=== PATIENT | female | born 1960 | race Caucasian/White ===

== ENCOUNTER → 2022-10-24 14:22 | Outpatient (BNVA) | payer MEDICARE, MEDICAID, SELFPAY | PROVIDERS: PCP Physician Assistant Medical; Visit Provider Hospitalist | DX: J43.2 Centrilobular emphysema (principal); G47.33 Obstructive sleep apnea (adult) (pediatric); D49.89 Neoplasm of unspecified behavior of other specified sites; R91.8 Other nonspecific abnormal finding of lung field; Z87.891 Personal history of nicotine dependence; Z99.89 Dependence on other enabling machines and devices | CPT/HCPCS: 99202 ==

== ENCOUNTER 2022-11-03 10:23 | Outpatient (REF) | payer MEDICARE, MEDICAID, SELFPAY ==
--- NOTE | ~2022-11-03 | XR_ITS ---
EXAMINATION: XR LUMBOSACRAL SPINE WITH OBLIQUES CLINICAL INFORMATION: Spondylolisthesis. COMPARISON: None available. TECHNIQUE: 4 views of the lumbar spine including flexion-extension views. FINDINGS: There is an old moderate compression fracture and post kyphoplasty change of the L2 vertebral body. There is a mild old-appearing compression fracture of the superior endplate of the L4 vertebral body. There is a 3.4 cm anterior subluxation of L5 with respect to S1. This increases to 3.6 cm with flexion and does not change with extension. There is disc space narrowing at L1-L2 and L5-S1. There is lower lumbar spine facet arthritis. There is a probable L5 pars defect. XR/XR lumbar spine 4V min IMPRESSION: Significant 3.4 cm anterior subluxation of L5 with respect to S1 slightly increased to 3.6 cm with flexion and unchanged with extension. Old moderate L2 compression fracture and post kyphoplasty change. Old mild L4 compression fracture. Multilevel degenerative changes and probable bilateral L5 pars defect.
== END 2022-11-03 10:24 | disposition home or self-care (01) ==
LOC: HO.HOSX 10:23
PROVIDERS: PCP Physician Assistant Medical; Visit Provider Physician Assistant
DX: M43.16 Spondylolisthesis, lumbar region (principal); Z79.899 Other long term (current) drug therapy
CPT/HCPCS: 72110; 99202

== ENCOUNTER 2023-01-10 11:20 | Outpatient (AMB) | payer MEDICARE, MEDICAID, SELFPAY ==
--- NOTE | 2023-01-10 11:31 | MHC.OFFVIS ---
Intake Vital Signs 01/10/23 11:32 Height 5 ft 1 in Weight 175 lb 7.807 oz BMI 33.2 BP 116/74 Blood Pressure Location Rt brachial Position Sitting Pulse 72 Pulse Source Pulse Oximeter Temp 97.2 F Temp Source Skin Pulse Oximetry (%) 99 Intake Visit Reasons: Fibromyalgia Intake Note: New pt presents today for FM consult. 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 Accompanied by: Spouse Allergies amoxicillin [From Augmentin] Allergy (Unknown, Verified 01/10/23 11:36) Unknown clarithromycin [From Biaxin] Allergy (Unknown, Verified 01/10/23 11:36) Unknown clavulanic acid [From Augmentin] Allergy (Unknown, Verified 01/10/23 11:36) Unknown clindamycin Allergy (Unknown, Verified 01/10/23 11:36) Unknown doxycycline Allergy (Unknown, Verified 01/10/23 11:36) Unknown levofloxacin [From Levaquin] Allergy (Unknown, Verified 01/10/23 11:36) Unknown Sulfa (Sulfonamide Antibiotics) Allergy (Unknown, Verified 01/10/23 11:36) Unknown adhesive tape Adverse Reaction (Severe, Verified 01/10/23 11:36) Blister Medication List - Last Reconciled 01/10/23 by Antoine Mendieta MD albuterol sulfate 90 mcg/actuation 0 mcg inhalation ascorbate calcium (vitamin C) 500 mg PO DAILY B complex with C 20-folic acid 1 mg 1 cap PO DAILY baclofen 10 mg PO TID budesonide-formoterol 160-4.5 mcg/actuation (Symbicort) 2 puffs inhalation BID 30 days cholecalciferol (vitamin D3) 25 mcg PO DAILY escitalopram oxalate 10 mg PO DAILY gabapentin ER (Gralise) 300 mg PO QPM hydroxyzine HCl 25 mg PO TID PRN inhalational spacing device (Aerochamber MV spacer) As directed lisinopril 2.5 mg PO BID lorazepam 2 mg PO BEDTIME PRN milnacipran (Savella) 100 mg PO DAILY modafinil (Provigil) 200 mg PO DAILY omeprazole 40 mg PO BID trazodone 100 mg PO BEDTIME PRN HPI HPI Comments History of Present Illness Details This is a 62-year-old female who is referred for evaluation of fibromyalgia. Patient stated that she was diagnosed with fibromyalgia in 2007. She was managed with multiple meds including Cymbalta, Lyrica which are not helpful. Currently she is on a combination of gabapentin, trazodone, Savella,trazodone, modafinil, escitalopram which were all prescribed by her neurologist and PCP. She has history of sleep apnea and uses a CPAP but the machine is broken and she is in the process of getting a new one. She states that her neurologist retired and she saw another neurologist and she did not find very helpful. Patient recently was diagnosed with thymoma and had a surgical resection a few months ago. Post operatively patient is requiring 2 L of home oxygen. Patient was also found to have significant degenerative disc disease of her spine and is planned to have surgery soon. [facility] Medical History COPD (chronic obstructive pulmonary disease) FERCHO on CPAP Pulmonary nodules Thymoma Surgical History H/O myomectomy H/O parotidectomy H/O sinus surgery H/O thymectomy H/O tubal ligation Family History Mother COPD (chronic obstructive pulmonary disease) Father Prostate CA Social History Household Members: Spouse Alcohol intake: never Patient Tobacco Use Status: Former Tobacco user Years Smoked: 20 years Review of Systems Const Reports fatigue and Reports weakness Card Reports dyspnea Resp Reports dyspnea and Reports wheezing GI Reports heartburn Musc Reports back pain, Reports arthralgias, Reports limited range of motion and Reports stiffness Skin/Breast Reports unusual bruising Neuro Reports weakness Psych Reports anxiety and Reports depression Endo Reports fatigue Aller/Immun Reports wheezing Physical Exam Vital Signs: Last Vital Signs Temp 97.2 F 01/10/23 11:32 Pulse 72 01/10/23 11:32 BP 116/74 01/10/23 11:32 Pulse Ox 99 01/10/23 11:32 BMI result Body Mass Index 33.2 Const General: cooperative, healthy appearing and comfortable Nutritional Appearance: obese Orientation/consciousness: patient oriented x3 Limitations: no limitations and ambulation with walker HEENT Head: Yes normocephalic and Yes atraumatic Mouth: moist mucous membranes Resp Effort & Inspection: normal respiratory effort and able to speak in complete sentences Auscultation: rhonchi Cardio Rate: regular rate Neuro General: patient oriented x3 Extrem Other: Few fibromyalgia tender points with no active synovitis Assessment & Plan Assessment & Plan (1) Fibromyalgia, primary: Code(s): M79.7 - Fibromyalgia Plan: This is a 62-year-old female with fibromyalgia who presents as a new patient. Discussed management of fibromyalgia with patient. 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 I suggested that patient try to address her underlying psychiatric issues, anxiety/depression. I suggested evaluation by a therapist and/or a psychiatrist. Advised patient try to acquire a new CPAP machine as soon as she can. Try to follow sleep hygiene practices. Patient would benefit from increased physical activity. I suggested low-impact exercises such as swimming, aquatherapy, stretching or yoga. Patient previously failed Cymbalta and Lyrica. She is currently on multiple meds for anxiety/depression and fibromyalgia. Follow-up with PCP Plan I spent 46 minutes reviewing patient's chart, evaluating patient counseling patient and documenting in the chart Coding Level of Care Code New Pt Level 4 (58976) Diagnoses Fibromyalgia, primary M79.7
[2023-01-10 11:32] VITALS: BP 116/74; PULSE 72; TEMP 36.2; O2SAT 99; BMI 33.2
== END 2023-01-10 12:11 | disposition home or self-care (01) ==
PROVIDERS: PCP Physician Assistant Medical; Visit Provider Student in an Organized Health Care Education/Training Program
DX: M79.7 Fibromyalgia (principal)
CPT/HCPCS: 99204

== ENCOUNTER → 2023-01-10 11:20 | Outpatient (BNVA) | payer MEDICARE, MEDICAID, SELFPAY | PROVIDERS: PCP Physician Assistant Medical; Visit Provider Student in an Organized Health Care Education/Training Program | DX: M79.7 Fibromyalgia (principal) | CPT/HCPCS: 99202 ==

== ENCOUNTER 2023-01-30 13:04 | Outpatient (AMB) | payer MEDICARE, MEDICAID, SELFPAY ==
[2023-01-30 13:12] VITALS: BP 118/64; PULSE 104; O2SAT 96; BMI 33.1
--- NOTE | 2023-01-30 13:12 | MHC.OFFVIS ---
Intake Vital Signs 01/30/23 13:12 Height 5 ft 1 in Weight 175 lb 4.28 oz BMI 33.1 BP 118/64 Blood Pressure Location Lt brachial Position Sitting Pulse 104 H Pulse Source Pulse Oximeter Pulse Oximetry (%) 96 Oxygen Delivery Method Nasal Cannula Intake Visit Reasons: COPD, d/c from [facility] with O2 Magistrate Judge Required: No Kiosk Sales Representative: Kiosk Sales Representative offered & declined Accompanied by: Spouse Allergies amoxicillin [From Augmentin] Allergy (Unknown, Verified 01/30/23 13:19) Unknown clarithromycin [From Biaxin] Allergy (Unknown, Verified 01/30/23 13:19) Unknown clavulanic acid [From Augmentin] Allergy (Unknown, Verified 01/30/23 13:19) Unknown clindamycin Allergy (Unknown, Verified 01/10/23 11:36) Unknown doxycycline Allergy (Unknown, Verified 01/10/23 11:36) Unknown levofloxacin [From Levaquin] Allergy (Unknown, Verified 01/30/23 13:19) Unknown Sulfa (Sulfonamide Antibiotics) Allergy (Unknown, Verified 01/30/23 13:19) Unknown adhesive tape Adverse Reaction (Severe, Verified 01/30/23 13:19) Blister Medication List - Last Reconciled 01/30/23 by Mimi Delatorre LPN albuterol sulfate 90 mcg/actuation 0 mcg inhalation ascorbate calcium (vitamin C) 500 mg PO DAILY B complex with C 20-folic acid 1 mg 1 cap PO DAILY baclofen 10 mg PO TID budesonide-formoterol 160-4.5 mcg/actuation (Symbicort) 2 puffs inhalation BID 30 days cholecalciferol (vitamin D3) 25 mcg PO DAILY escitalopram oxalate 10 mg PO DAILY gabapentin ER (Gralise) 300 mg PO QPM hydroxyzine HCl 25 mg PO TID PRN inhalational spacing device (Aerochamber MV spacer) As directed lisinopril 2.5 mg PO BID lorazepam 2 mg PO BEDTIME PRN milnacipran (Savella) 100 mg PO DAILY modafinil (Provigil) 200 mg PO DAILY omeprazole 40 mg PO BID trazodone 100 mg PO BEDTIME PRN HPI COPD, d/c from [facility] with O2 HPI Details Gladys is a pleasant 62 year old female, former smoker, with underlying COPD and FERCHO on previously on CPAP. At baseline, she is well controlled on Symbicort and albuterol MDI PRN. Today she presents for hospital follow up. She underwent thymectomy in October and was discharged on oxygen. Mid November her oxygen was discontinued and she had two syncopal episodes admitted to [facility] for 3 nights and discharged on 12/18/22. Her symptoms were reportedly attributed to hypoxia, especially at night. An order for a sleep study was placed at discharge which is scheduled for 03/13/23. She presents today using 1L of continuous oxygen and is concerned about hypoxia at night as she reports waking up gasping for air. [facility] Medical History COPD (chronic obstructive pulmonary disease) FERCHO on CPAP Pulmonary nodules Thymoma Surgical History H/O myomectomy H/O parotidectomy H/O sinus surgery H/O thymectomy H/O tubal ligation Family History Mother COPD (chronic obstructive pulmonary disease) Father Prostate CA Social History (Updated 01/30/23 @ 13:22 by Mimi Delatorre LPN) Household Members: Spouse Alcohol intake: never Patient Tobacco Use Status: Former Tobacco user Cigarette Packs Per Day: 1 Years Smoked: 20 years / quit 2003 Review of Systems Const Denies chills, Denies excessive sweating, Denies fever(s), Denies headache(s) and Denies night sweats Eyes Denies dry eyes, Denies irritation and Denies itchy eyes ENT Reports Normal hearing present, Denies headache(s), Denies nasal congestion, Denies nasal discharge, Denies post nasal drip and Denies sore throat Card Denies chest pain, Denies chest pain at rest, Denies chest pain with activity, Denies claudication, Denies leg edema and Denies orthopnea Resp Denies chest congestion, Denies cough, Denies excessive phlegm production, Denies pain on inspiration, Denies pain with cough, Denies stridor and Denies wheezing Musc Denies myalgias Neuro Reports Normal hearing present and Denies headache(s) Endo Denies excessive sweating David/Lymph Denies lymphadenopathy Aller/Immun Denies itchy eyes, Denies seasonal rhinorrhea and Denies wheezing Physical Exam Vital Signs: Last Vital Signs Pulse 104 H 01/30/23 13:12 BP 118/64 01/30/23 13:12 Pulse Ox 96 01/30/23 13:12 Oxygen Delivery Method Nasal Cannula 01/30/23 13:12 BMI result Body Mass Index 33.1 Const Other: using walker for ambulation General: cooperative, healthy appearing, comfortable, no acute distress, well developed and alert Orientation/consciousness: patient oriented x3 Limitations: ambulation with walker HEENT Head: Yes normal to inspection, Yes normocephalic and Yes atraumatic Ears: hearing grossly normal bilaterally and external ears normal Eyes General: appearance normal, both eyes and all related structures Eyelids: Yes eyelids normal Sclerae: sclerae normal EOM: EOMs intact bilaterally Neck Neck: Yes normal visual inspection and Yes no lymphadenopathy Lymphatic: no lymphadenopathy noted Chest Chest palpation & inspection: normal inspection of the chest Resp Effort & Inspection: normal respiratory effort, able to speak in complete sentences, no audible wheezes, no cough, no stridor, not tachypneic, no tripod positioning and no use of accessory muscles Auscultation: no crackles, no wheezes and diminished lung sounds Cardio Jugular venous distension: no JVD Rate: regular rate Rhythm: regular rhythm Skin Other: warm, dry General skin exam: no rashes or lesions noted Neuro General: patient oriented x3 Cranial nerves: Yes Normal hearing present Cognition (Neuro): normal cognition Gait exam (Neuro): Normal gait present Extrem General: Yes normal to inspection, Yes capillary refill normal, Yes no clubbing, cyanosis or edema and Yes no pedal edema Psych Appearance: grossly normal and well kempt Speech and movement: Normal speech and movement present and Clear speech present Affect: normal affect Attitude: cooperative Thought process: Normal thought process present Thought content: Normal thought content present Insight: Good insight present (Psych) Judgement: Good judgement present (Psych) Office Procedures 6 Minute Walk Time:: 13:40 SPO2 % at rest: 95 Pulse at rest: 107 SPO2 % during excercise: 87 Pulse during excercise: 118 SPO2 % after excercise: 96 Pulse after excercise: 116 Distance in yards walked: 114 Neeraj Score: 7 Supplemental Oxygen: Performance Observations:: Patient without O2 was able to walk on level ground using a walker. After walking 50 yards O2 sat dropped to 87% and O2 was applied at 1L. Rested for approx one minute and recovered to O2 saturation of 92%. Completed the 6 minute walk using the O2 via nasal cannula at 1L and maintained O2 saturation between 91-93%. Patient reports moderate effort and states she tires easily. [id number] - 6 Minute Walk Assessment & Plan Assessment & Plan (1) COPD (chronic obstructive pulmonary disease): Code(s): J44.9 - Chronic obstructive pulmonary disease, unspecified Qualifiers: COPD type: emphysema Emphysema type: centrilobular Qualified Code(s): J43.2 - Centrilobular emphysema (2) FERCHO on CPAP: Code(s): G47.33 - Obstructive sleep apnea (adult) (pediatric); Z99.89 - Dependence on other enabling machines and devices (3) Nocturnal hypoxemia: Code(s): G47.34 - Idiopathic sleep related nonobstructive alveolar hypoventilation (4) On supplemental oxygen therapy: Code(s): Z99.81 - Dependence on supplemental oxygen Plan Gladys presents for hospital follow up after two syncopal episodes and reported were related to hypoxic events. Will attempt to obtain records from [facility]. She does have a history of FERCHO and has been without her CPAP machine for almost one year due to malfunction and need for a repeat study. Discussed with patient that scheduling a sleep study and overnight oximetry through this office would most likely be after her already scheduled appointment in February at [facility]. Advised her to continue to follow with [facility] sleep clinic and if she would like to transfer care here, then we would take over at that time. 6MWT was performed, and patient still requires 1L of continuous oxygen, as her oxygen saturation decreased to 87% with exertion. Patient aware to maintain oxygen saturation between 92-94%. At this time, patient is doing well on current regimen. Advised to continue and follow up with Dr. Partida at her regularly scheduled appointment or sooner if needed. All questions were answered and patient is in agreement of plan. Orders: Orders AMB 6 minute walk 01/30/23 J44.9 - Chronic obstructive pulmonary disease, unspecified Coding Level of Care Code Est Pt Level 4 (68024) Diagnoses COPD (chronic obstructive pulmonary disease) J43.2 COPD type: emphysema Emphysema type: centrilobular FERCHO on CPAP G47.33; Z99.89 Nocturnal hypoxemia G47.34 On supplemental oxygen therapy Z99.81 CPT Codes Coding ([id number])
[2023-01-30 14:02] VITALS: PULSE 107; O2SAT 95
== END 2023-01-30 14:06 | disposition home or self-care (01) ==
PROVIDERS: PCP Physician Assistant Medical; Visit Provider Nurse Practitioner Family
DX: J43.2 Centrilobular emphysema (principal)
CPT/HCPCS: 94618; 99214

== ENCOUNTER → 2023-01-30 13:04 | Outpatient (BNVA) | payer MEDICARE, MEDICAID, SELFPAY | PROVIDERS: PCP Physician Assistant Medical; Visit Provider Nurse Practitioner Family | DX: J43.2 Centrilobular emphysema (principal); G47.33 Obstructive sleep apnea (adult) (pediatric); G47.34 Idiopathic sleep related nonobstructive alveolar hypoventilation; R91.8 Other nonspecific abnormal finding of lung field; Z99.89 Dependence on other enabling machines and devices; Z99.81 Dependence on supplemental oxygen; Z79.899 Other long term (current) drug therapy | CPT/HCPCS: 94618; 99212 ==

== ENCOUNTER 2023-04-18 14:35 | Outpatient (AMB) | payer MEDICARE, MEDICAID, SELFPAY ==
--- NOTE | 2023-04-18 15:45 | A.SPINEOV_ITS ---
Intake Intake Visit Reasons: discuss surgery Intake Note: Mrs. Jasso is here to discuss surgery. Engraver Signature Required: No Allergies amoxicillin [From Augmentin] Allergy (Unknown, Verified 01/30/23 13:19) Unknown clarithromycin [From Biaxin] Allergy (Unknown, Verified 01/30/23 13:19) Unknown clavulanic acid [From Augmentin] Allergy (Unknown, Verified 01/30/23 13:19) Unknown clindamycin Allergy (Unknown, Verified 01/10/23 11:36) Unknown doxycycline Allergy (Unknown, Verified 01/10/23 11:36) Unknown levofloxacin [From Levaquin] Allergy (Unknown, Verified 01/30/23 13:19) Unknown Sulfa (Sulfonamide Antibiotics) Allergy (Unknown, Verified 01/30/23 13:19) Unknown adhesive tape Adverse Reaction (Severe, Verified 01/30/23 13:19) Blister Assessment & Plan Assessment & Plan (1) Spondylolisthesis, lumbar region: Code(s): M43.16 - Spondylolisthesis, lumbar region Plan Dear colleague, On 04/18/2023, I saw for preoperative visit Gladys Jasso to discuss surgical options for right L5 lumbar radiculopathy. She was previously seen by Brendon bhatti who diagnosed with an L5-S1 spondylolisthesis and right L5 lumbar radiculopathy. Spinal surgery was postponed due to thymus cancer. In the meantime, a thymectomy was done. She is on 1 L oxygen following the surgery and she hopes that this will be discontinued tomorrow. I went over the imaging with the patient. The MRI shows severe bilateral L5 foraminal stenosis. A standing x-ray shows a grade 1 L5-S1 spondylolisthesis that is stable with flexion- extension. In addition, there is osteoporosis. I discussed with the patient that a fusion is not an appealing option due to her bone quality. However, I think she will respond well to a right L5 foraminotomy and that the risk of additional instability is minor as the dynamic x-rays currently show no signs of instability. I discussed the foraminotomy and expected postoperative course. She is scheduled for the beginning of June. She will need preoperative clearance from the stereotyper and primary care physician before the surgery. I spent 25 minutes in his consult for preparation, review of imaging and discussing plan of care. Thank you for letting me take care of your patient. Do not hesitate to call me with any questions or concerns. Bimal Clarke MD, PhD Spine Fellowship Trained Neurosurgeon Director, [facility] Coding Level of Care Code Est Pt Level 3 (40755) Diagnoses Spondylolisthesis, lumbar region M43.16
== END 2023-04-18 16:31 | disposition home or self-care (01) ==
PROVIDERS: PCP Physician Assistant Medical; Visit Provider Neurological Surgery
DX: M43.16 Spondylolisthesis, lumbar region (principal)
CPT/HCPCS: 99213

== ENCOUNTER → 2023-04-18 14:35 | Outpatient (BNVA) | payer MEDICARE, MEDICAID, SELFPAY | PROVIDERS: PCP Physician Assistant Medical; Visit Provider Neurological Surgery | DX: M43.16 Spondylolisthesis, lumbar region (principal) | CPT/HCPCS: 99212 ==

== ENCOUNTER 2023-04-19 10:02 | Outpatient (AMB) | payer MEDICARE, MEDICAID, SELFPAY ==
--- NOTE | 2023-04-19 10:10 | MHC.OFFVIS ---
Intake Vital Signs 04/19/23 10:11 Weight 174 lb 2.643 oz BP 118/66 Blood Pressure Location Rt brachial Position Sitting Pulse 99 Pulse Source Pulse Oximeter Pulse Oximetry (%) 93 Oxygen Delivery Method Room Air Intake Visit Reasons: Emphysema Allergies amoxicillin [From Augmentin] Allergy (Unknown, Verified 04/19/23 10:17) Unknown clarithromycin [From Biaxin] Allergy (Unknown, Verified 04/19/23 10:17) Unknown clavulanic acid [From Augmentin] Allergy (Unknown, Verified 04/19/23 10:17) Unknown clindamycin Allergy (Unknown, Verified 04/19/23 10:17) Unknown doxycycline Allergy (Unknown, Verified 04/19/23 10:17) Unknown levofloxacin [From Levaquin] Allergy (Unknown, Verified 04/19/23 10:17) Unknown Sulfa (Sulfonamide Antibiotics) Allergy (Unknown, Verified 04/19/23 10:17) Unknown adhesive tape Adverse Reaction (Severe, Verified 04/19/23 10:17) Blister Medication List - Last Reconciled 04/19/23 by Corina Greer LPN abaloparatide (Tymlos) 80 mcg subcut DAILY albuterol sulfate 90 mcg/actuation 0 mcg inhalation ascorbate calcium (vitamin C) 500 mg PO DAILY B complex with C 20-folic acid 1 mg 1 cap PO DAILY baclofen 10 mg PO TID budesonide-formoterol 160-4.5 mcg/actuation (Symbicort) 2 puffs inhalation BID 30 days cholecalciferol (vitamin D3) 25 mcg PO DAILY escitalopram oxalate 10 mg PO DAILY gabapentin ER (Gralise) 300 mg PO QPM hydroxyzine HCl 25 mg PO TID PRN inhalational spacing device (Aerochamber MV spacer) As directed lisinopril 2.5 mg PO BID lorazepam 2 mg PO BEDTIME PRN milnacipran (Savella) 100 mg PO DAILY modafinil (Provigil) 200 mg PO DAILY omeprazole 40 mg PO BID trazodone 100 mg PO BEDTIME PRN HPI HPI Comments History of Present Illness Details The patient is a 62 y/o woman with COPD, former smoker and FERCHO on CPAP. Having muliple complaints including chest tightness and shortness of breath. Moderate in severity. Her SUNDAR inhaler does not help. She did undergo PFTs at [facility] with mild COPD, but significant small airways disease. She also underwent a CT chest demonstrating moderate emphysema, multiple pulmonary nodules and an anterior mediastinal mass. She was dx with a thymoma. Denies any weakness or myasthenia Gravis. She will be undergoing surgery at [facility] [place] soon. Also, she has been on CPAP for many years, However, her CPAP is no longer working. She does have an elevated Hutchinson score 11/24. 04/19/2023 the patient is here for a pulmonary follow-up visit. Overall the patient has been doing well. She did undergo her thymoma surgery. After she did have some chest discomfort. But it has been slowly getting better. Her breathing also been better. She does have oxygen right now. We did take her off the oxygen and did a 6 minute walk test. She was able to maintain pulse ox within the normal ranges. Therefore, is reasonable for her to discontinue the oxygen for now. will plan to reassess her again when she returns for her next follow-up visit. In the meantime her respiratory status is stable. the patient is scheduled to undergo spine surgery. At this point clinically the patient is doing better. the patient does have increased risk for perioperative pulmonary complications which includes atelectasis, hypoxia, pneumonia. At this point she is medically optimized from a pulmonary standpoint it may go ahead and proceed with anesthesia and surgery. She should keep the oxygen at home however. It is likely that she will needed postoperatively. The patient also underwent a home sleep study. The patient does have moderate degree of sleep apnea. She also underwent a titration study and they did recommend APAP. Therefore, I will submit for a replacement CPAP since her current CPAP is no longer functional. She does have an elevated Hutchinson score of 11/24. The patient does have cardiovascular risk factors therefore restarting her CPAP is important. [facility] Medical History COPD (chronic obstructive pulmonary disease) FERCHO on CPAP Pulmonary nodules Thymoma Surgical History H/O myomectomy H/O parotidectomy H/O sinus surgery H/O thymectomy H/O tubal ligation Family History Mother COPD (chronic obstructive pulmonary disease) Father Prostate CA Social History (Updated 01/30/23 @ 13:22 by Mimi Delatorre LPN) Household Members: Spouse Alcohol intake: never Patient Tobacco Use Status: Former Tobacco user Cigarette Packs Per Day: 1 Years Smoked: 20 years / quit 2003 Review of Systems Const Reports daytime sleepiness, Reports difficulty sleeping, Denies fever(s) and Reports snoring Eyes Denies change in vision and Denies diplopia ENT Denies change in voice and Denies dysphagia Card Denies chest pain and Reports dyspnea on exertion Resp Reports cough, Reports dyspnea on exertion, Reports snoring and Denies wheezing GI Denies dysphagia Musc Reports abnormal gait, Reports myalgias, Reports numbness, Reports radiating pain into limb and Reports tingling Skin/Breast Denies rash Neuro Reports no additional complaints, Reports abnormal gait, Reports numbness and Reports tingling Endo Denies flushing David/Lymph Denies lymphadenopathy Aller/Immun Denies wheezing Physical Exam Vital Signs: Last Vital Signs Pulse 99 04/19/23 10:11 BP 118/66 04/19/23 10:11 Pulse Ox 93 04/19/23 10:11 Oxygen Delivery Method Room Air 04/19/23 10:11 Const General: comfortable HEENT Head: Yes normocephalic Neck Neck: Yes supple Chest Chest palpation & inspection: normal inspection of the chest Resp Effort & Inspection: normal respiratory effort Auscultation: diminished lung sounds Cardio Rate: regular rate Rhythm: regular rhythm Heart sounds: S1 normal heart sound present and S2 normal heart sound present GI Palpation (GI): Soft to palpation Skin General skin exam: no rashes or lesions noted Extrem General: Yes no clubbing, cyanosis or edema Assessment & Plan Assessment & Plan (1) Pre-op chest exam: Code(s): Z01.811 - Encounter for preprocedural respiratory examination (2) FERCHO on CPAP: Code(s): G47.33 - Obstructive sleep apnea (adult) (pediatric); Z99.89 - Dependence on other enabling machines and devices (3) Thymoma: Code(s): D49.89 - Neoplasm of unspecified behavior of other specified sites (4) Pulmonary nodules: Code(s): R91.8 - Other nonspecific abnormal finding of lung field (5) Chest pain: Comment: post op Code(s): R07.9 - Chest pain, unspecified Qualifiers: Chest pain type: intercostal pain Qualified Code(s): R07.82 - Intercostal pain Plan The patient may proceed and consent for anesthesia and spinal surgery. She does have increase risk for atelectasis, hypoxia and pneumonia Discontinue oxygen for now, we will reassess again after her surgery continue Symbicort with specer SUNDAR as needed Needs a replacement APAP. Requesting APAP from local DME CT chest to f/u nodules 08/2023 CXR F/U 3 months Orders: Orders XR chest 2V Today R07.9 - Chest pain, unspecified Coding Level of Care Code Est Pt Level 4 (83813) Diagnoses Pre-op chest exam Z01.811 FERCHO on CPAP G47.33; Z99.89 Thymoma D49.89 Pulmonary nodules R91.8 Intercostal pain R07.82 Chest pain type: intercostal pain Time Spent (min) 17
[2023-04-19 10:11] VITALS: BP 118/66; PULSE 99; O2SAT 93
== END 2023-04-19 10:53 | disposition home or self-care (01) ==
PROVIDERS: PCP Physician Assistant Medical; Visit Provider Hospitalist
DX: Z01.811 Encounter for preprocedural respiratory examination (principal); G47.33 Obstructive sleep apnea (adult) (pediatric); Z99.89 Dependence on other enabling machines and devices; D49.89 Neoplasm of unspecified behavior of other specified sites; R91.8 Other nonspecific abnormal finding of lung field; R07.82 Intercostal pain
CPT/HCPCS: 99214

== ENCOUNTER 2023-04-19 10:02 | Outpatient (REF) | payer MEDICARE, MEDICAID, SELFPAY ==
--- NOTE | ~2023-04-19 | XR_ITS ---
EXAMINATION: XR CHEST CLINICAL INFORMATION: Chest pain COMPARISON: 10/12/2022 TECHNIQUE: 2 views of the chest were obtained. FINDINGS: There is no gross pneumothorax. Right basilar opacity may represent a combination of pleural fluid/thickening, atelectasis, pneumonia and/or underlying lesion. Heart size is normal. Mild dextroscoliosis of the thoracic spine. Multilevel degenerative changes XR/XR chest 2V IMPRESSION: Right basilar opacity may represent a combination of pleural fluid/thickening, atelectasis, pneumonia and/or underlying lesion. CT scan of the chest recommended for further evaluation. This study was presented today 04/23/2023 at 11:00 AM for interpretation. PSA staff will provide results to referring provider at this time.
== END 2023-04-19 10:03 | disposition home or self-care (01) ==
LOC: HO.XRAY 10:02
PROVIDERS: Visit Provider Hospitalist
DX: Z01.811 Encounter for preprocedural respiratory examination (principal); R07.9 Chest pain, unspecified; R07.82 Intercostal pain; J44.9 Chronic obstructive pulmonary disease, unspecified; G47.33 Obstructive sleep apnea (adult) (pediatric); R91.8 Other nonspecific abnormal finding of lung field; Z99.89 Dependence on other enabling machines and devices
CPT/HCPCS: 71046; 99212

== ENCOUNTER → 2023-05-14 14:10 | Outpatient (REF) | payer MEDICARE, MEDICAID, SELFPAY ==
--- NOTE | 2023-05-14 14:15 | ECG_ITS ---
Test Reason : COPD Blood Pressure : / mmHG Vent. Rate : 098 BPM Atrial Rate : 098 BPM P-R Int : 148 ms QRS Dur : 096 ms QT Int : 348 ms P-R-T Axes : 064 067 044 degrees QTc Int : 444 ms Normal sinus rhythm Normal ECG No previous ECGs available Referred By: Donell Partida Electronically Signed By:ISABEL FELIZ MD
== END ==
LOC: HO.CARD 14:10
PROVIDERS: PCP Physician Assistant Medical; Visit Provider Hospitalist
DX: J44.9 Chronic obstructive pulmonary disease, unspecified (principal)
CPT/HCPCS: 93005

== ENCOUNTER 2023-08-08 09:32 | Outpatient (AMB) | payer MEDICARE, MEDICAID, SELFPAY ==
[2023-08-08 10:01] VITALS: PULSE 90; O2SAT 96; BMI 34.0
--- NOTE | 2023-08-08 10:01 | MHC.OFFVIS ---
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 Required: No Allergies hydromorphone [From Dilaudid] Allergy (Severe, Verified 08/08/23 10:02) Nausea levofloxacin [From Levaquin] Allergy (Severe, Verified 08/08/23 10:02) lost feeling in legs oxycodone Allergy (Severe, Verified 08/08/23 10:02) Vomiting adhesive tape Adverse Reaction (Severe, Verified 08/08/23 10:02) Blister amoxicillin [From Augmentin] Adverse Reaction (Severe, Verified 08/08/23 10:02) Gastrointestinal Upset clavulanic acid [From Augmentin] Adverse Reaction (Severe, Verified 08/08/23 10:02) Gastrointestinal Upset clarithromycin [From Biaxin] Adverse Reaction (Intermediate, Verified 08/08/23 10:02) Nausea and Vomiting clindamycin Adverse Reaction (Intermediate, Verified 08/08/23 10:02) Nausea and Vomiting doxycycline Adverse Reaction (Intermediate, Verified 08/08/23 10:02) Nausea and Vomiting Sulfa (Sulfonamide Antibiotics) Adverse Reaction (Intermediate, Verified 08/08/23 10:02) Nausea and Vomiting HPI HPI Comments History of Present Illness Details The patient is a 62 y/o woman with COPD, former smoker and FERCHO on CPAP. Having muliple complaints including chest tightness and shortness of breath. Moderate in severity. Her SUNDAR inhaler does not help. She did undergo PFTs at [facility] with mild COPD, but significant small airways disease. She also underwent a CT chest demonstrating moderate emphysema, multiple pulmonary nodules and an anterior mediastinal mass. She was dx with a thymoma. Denies any weakness or myasthenia Gravis. She will be undergoing surgery at [facility] soon. Also, she has been on CPAP for many years, However, her CPAP is no longer working. She does have an elevated Kimball score 05/18. 04/19/2023 the patient is here for a pulmonary follow-up visit. Overall the patient has been doing well. She did undergo her thymoma surgery. After she did have some chest discomfort. But it has been slowly getting better. Her breathing also been better. She does have oxygen right now. We did take her off the oxygen and did a 6 minute walk test. She was able to maintain pulse ox within the normal ranges. Therefore, is reasonable for her to discontinue the oxygen for now. will plan to reassess her again when she returns for her next follow-up visit. In the meantime her respiratory status is stable. the patient is scheduled to undergo spine surgery. At this point clinically the patient is doing better. the patient does have increased risk for perioperative pulmonary complications which includes atelectasis, hypoxia, pneumonia. At this point she is medically optimized from a pulmonary standpoint it may go ahead and proceed with anesthesia and surgery. She should keep the oxygen at home however. It is likely that she will needed postoperatively. The patient also underwent a home sleep study. The patient does have moderate degree of sleep apnea. She also underwent a titration study and they did recommend APAP. Therefore, I will submit for a replacement CPAP since her current CPAP is no longer functional. She does have an elevated Kimball score of 11/24. The patient does have cardiovascular risk factors therefore restarting her CPAP is important. 08/08/2023 the patient is here for a pulmonary follow-up visit. Overall she is doing well. She stopped the Symbicort because she was getting thrush. She is just doing well on the rescue inhaler. Unfortunately she could not have her surgery and now scheduled for the next few weeks from now. Clinically the patient is doing much better from a respiratory status and she really is not using the oxygen at this time. Like we plan the last time we want to retest her for oxygen needs after her surgery just in case she needs oxygen in the postoperative period. I do believe that she will not need it. She did get a new CPAP. The CPAP has been affecting beneficial she does use it for more than 4 hours a night with 100% compliance. Her AHI though continues to be a little elevated at 5.7. We did increase her pressures from 6-16 2 8-18 because she does need a higher pressure. I believe that this will help. [facility] Medical History (Updated 06/22/23 @ 11:57 by Leonora Holbrook RN) GERD (gastroesophageal reflux disease) Depression Arthritis Fibromyalgia Pulmonary nodules Thymoma FERCHO on CPAP COPD (chronic obstructive pulmonary disease) Surgical History (Updated 06/22/23 @ 11:59 by Leonora Holbrook RN) Hx of foot surgery History of esophagogastroduodenoscopy (EGD) H/O colonoscopy H/O thymectomy H/O parotidectomy H/O tubal ligation H/O sinus surgery Family History Mother COPD (chronic obstructive pulmonary disease) Father Prostate CA Social History (Updated 01/30/23 @ 13:22 by Mimi Delatorre LPN) Household Members: Spouse Are you a primary adult daycare coordinator to a significant other at home: No Do you presently have visiting nurse or other home services: Yes (Meals on Wheels) Alcohol intake: never Patient Tobacco Use Status: Former Tobacco user Quit Date: age 43 Tobacco use type: Cigarette Cigarette Packs Per Day: 1 Years Smoked: 20 Review of Systems Const Reports daytime sleepiness, Reports difficulty sleeping, Denies fever(s) and Denies snoring Eyes Denies change in vision and Denies diplopia ENT Denies change in voice and Denies dysphagia Card Denies chest pain and Reports dyspnea on exertion Resp Reports cough, Reports dyspnea on exertion, Denies snoring and Denies wheezing GI Denies dysphagia Musc Reports abnormal gait, Reports myalgias, Reports numbness, Reports radiating pain into limb and Reports tingling Skin/Breast Denies rash Neuro Reports no additional complaints, Reports abnormal gait, Reports numbness and Reports tingling Endo Denies flushing David/Lymph Denies lymphadenopathy Aller/Immun Denies wheezing Physical Exam Vital Signs: Last Vital Signs Pulse 90 08/08/23 10:01 Pulse Ox 96 08/08/23 10:01 Oxygen Delivery Method Room Air 08/08/23 10:01 BMI result Body Mass Index 34.0 Const General: comfortable HEENT Head: Yes normocephalic Neck Neck: Yes supple Chest Chest palpation & inspection: normal inspection of the chest Resp Effort & Inspection: normal respiratory effort Auscultation: clear to auscultation bilaterally and no wheezes Cardio Rate: regular rate Rhythm: regular rhythm Heart sounds: S1 normal heart sound present and S2 normal heart sound present GI Palpation (GI): Soft to palpation Skin General skin exam: no rashes or lesions noted Extrem General: Yes no clubbing, cyanosis or edema Assessment & Plan Assessment & Plan (1) Pre-op chest exam: Code(s): Z01.811 - Encounter for preprocedural respiratory examination (2) FERCHO on CPAP: Code(s): G47.33 - Obstructive sleep apnea (adult) (pediatric); Z99.89 - Dependence on other enabling machines and devices (3) Thymoma: Comment: w/surgery 11/07/22 @ [facility] Code(s): D49.89 - Neoplasm of unspecified behavior of other specified sites (4) Pulmonary nodules: Comment: [place] [place] Code(s): R91.8 - Other nonspecific abnormal finding of lung field Plan The patient may proceed and consent for anesthesia and spinal surgery. She does have increase risk for atelectasis, hypoxia and pneumonia Discontinue oxygen for now, we will reassess again after her surgery stopped Symbicort with specer Fluconazole for thrush SUNDAR as needed Adjusted APAP from local [facility] 12-08 to 8- CT chest to f/u nodules 07/2024 at [facility] F/U 3-4 months Medications: New fluconazole 100 mg PO DAILY 7 days 7 tabs 0RF Discontinued budesonide-formoterol 160-4.5 mcg/actuation (Symbicort) Discontinued Reason: Doctor's Order 2 puffs inhalation BID 30 days 10.2 grams 11RF J44.9 - Chronic obstructive pulmonary disease, unspecified Coding Level of Care Code Est Pt Level 4 (74385) Diagnoses Pre-op chest exam Z01.811 FERCHO on CPAP G47.33; Z99.89 Thymoma D49.89 Pulmonary nodules R91.8 Time Spent (min) 16
== END 2023-08-08 10:26 | disposition home or self-care (01) ==
PROVIDERS: PCP Physician Assistant Medical; Visit Provider Hospitalist
DX: Z01.811 Encounter for preprocedural respiratory examination (principal); G47.33 Obstructive sleep apnea (adult) (pediatric); Z99.89 Dependence on other enabling machines and devices; D49.89 Neoplasm of unspecified behavior of other specified sites; R91.8 Other nonspecific abnormal finding of lung field
CPT/HCPCS: 99214

== ENCOUNTER → 2023-08-08 09:32 | Outpatient (BNVA) | payer MEDICARE, MEDICAID, SELFPAY | PROVIDERS: PCP Physician Assistant Medical; Visit Provider Hospitalist | DX: Z01.811 Encounter for preprocedural respiratory examination (principal); G47.33 Obstructive sleep apnea (adult) (pediatric); R91.8 Other nonspecific abnormal finding of lung field; D49.89 Neoplasm of unspecified behavior of other specified sites; Z99.89 Dependence on other enabling machines and devices | CPT/HCPCS: 99212 ==

== ENCOUNTER 2023-08-23 11:20 | Day surgery (SDC) | payer MEDICARE, MEDICAID, SELFPAY ==
[2023-06-22 12:10] VITALS: BP 115/56; PULSE 90; RESP 18; O2SAT 97; BMI 35.3
--- NOTE | 2023-06-22 12:20 | P.CONAN_ITS ---
HPI - Anesthesia Eval Consult details Narrative: Rescheduled to 08/23/23 62yo F for Right L5 Foraminotomy Pulmo cleared No recent illness No CP. WEN is baseline with COPD. s/p thymectomy 10/2022. Multiple intubation attempts - see highlighted [facility] anesthesia record on chart GERD. PPI BID. Still with rare GERD FERCHO. CPAP QHS. COPD. Ex smoker. Previously on home O2, 2-4L 24 hours 10/2022-03/2023. Passed 6 minute walk test 03/2023 at pulsc office [facility] Active Problems Active Problems: All Active Problems (Updated 06/22/23 @ 11:57 by Leonora Holbrook RN) Pre-op chest exam (Acute) Chest pain (Acute) On supplemental oxygen therapy (Acute) Nocturnal hypoxemia (Acute) Fibromyalgia, primary (Acute) Spondylolisthesis, lumbar region (Acute) Pulmonary nodules (Acute) Thymoma (Acute) FERCHO on CPAP (Acute) COPD (chronic obstructive pulmonary disease) (Acute) Past Medical History Medical History (Updated 06/22/23 @ 11:57 by Leonora Holbrook RN) GERD (gastroesophageal reflux disease) Depression Arthritis Fibromyalgia Pulmonary nodules Thymoma FERCHO on CPAP COPD (chronic obstructive pulmonary disease) Family History Family History Mother COPD (chronic obstructive pulmonary disease) Father Prostate CA Family history of problems with anesthesia: No Surgical History Surgical History (Updated 06/22/23 @ 11:59 by Leonora Holbrook RN) Hx of foot surgery History of esophagogastroduodenoscopy (EGD) H/O colonoscopy H/O thymectomy H/O parotidectomy H/O tubal ligation H/O sinus surgery History of Problems with Anesthesia: No Social History Social History (Updated 01/30/23 @ 13:22 by Mimi Delatorre LPN) Household Members: Spouse Are you a primary before and after school daycare worker to a significant other at home: No Do you presently have visiting nurse or other home services: Yes (Meals on Wheels) Alcohol intake: never Patient Tobacco Use Status: Former Tobacco user Quit Date: age 43 Tobacco use type: Cigarette Cigarette Packs Per Day: 1 Years Smoked: 20 Use of substances other than those prescribed or required for medical reasons: No Have you been hit, kicked, punched, or otherwise hurt by someone within the past year? If so, by whom?: No Are you DNR?: No Advance Directives Information Provided: Yes (as above noted) Advance Directives on File: No Recently lost weight without trying: No Eating poorly because of decreased appetite: No Nutrition Risks: No Nutritional Risk Poor oral hygiene: No (upper partial) Meds Allergies Allergy/AdvReac Type Severity Reaction Status Date / Time hydromorphone [From Dilaudid] Allergy Severe Nausea Verified 06/22/23 12:04 levofloxacin [From Levaquin] Allergy Severe lost Verified 06/22/23 12:02 feeling in legs oxycodone Allergy Severe Vomiting Verified 06/22/23 12:04 adhesive tape AdvReac Severe Blister Verified 04/19/23 10:17 amoxicillin [From Augmentin] AdvReac Severe Gastrointestinal Verified 06/22/23 12:02 Upset clavulanic acid AdvReac Severe Gastrointestinal Verified 06/22/23 12:02 [From Augmentin] Upset clarithromycin [From Biaxin] AdvReac Intermediate Nausea and Verified 06/22/23 12:42 Vomiting clindamycin AdvReac Intermediate Nausea and Verified 06/22/23 12:42 Vomiting doxycycline AdvReac Intermediate Nausea and Verified 06/22/23 12:42 Vomiting Sulfa (Sulfonamide AdvReac Intermediate Nausea and Verified 06/22/23 12:42 Antibiotics) Vomiting Home Medications Medication Instructions Recorded Confirmed Last Taken Type albuterol sulfate 90 mcg/actuation 2 mcg inhalation Q4H PRN Shortness 07/19/22 06/22/23 Unknown History aerosol inhaler Of Breath Or Wheezing escitalopram oxalate 10 mg tablet 10 mg PO DAILY 07/19/22 06/22/23 Unknown History lisinopril 2.5 mg tablet 2.5 mg PO BID 07/19/22 06/22/23 Unknown History lorazepam 2 mg tablet 2 mg PO BEDTIME PRN Anxiety 07/19/22 06/22/23 Unknown History milnacipran 100 mg tablet (Savella) 100 mg PO BID 07/19/22 06/22/23 Unknown History modafinil 200 mg tablet (Provigil) 200 mg PO BID 07/19/22 06/22/23 Unknown History omeprazole 40 mg capsule,delayed 40 mg PO BID 07/19/22 06/22/23 Unknown History release trazodone 50 mg tablet 100 mg PO BEDTIME PRN Insomnia 07/19/22 06/22/23 Unknown History vitamin B complex and vitamin C 1 cap PO DAILY 07/19/22 06/22/23 Unknown History no.20-folic acid 1 mg capsule baclofen 10 mg tablet 10 mg PO TID 10/24/22 06/22/23 Unknown History cholecalciferol (vitamin D3) 25 25 mcg PO DAILY 10/24/22 06/22/23 Unknown History mcg (1,000 unit) capsule hydroxyzine HCl 25 mg tablet 25 mg PO TID PRN itch 10/24/22 06/22/23 Unknown History abaloparatide (Tymlos) 80 mcg subcut DAILY 04/19/23 06/22/23 Unknown History cetirizine 10 mg tablet 10 mg PO DAILY 06/22/23 06/22/23 Unknown History gabapentin 600 mg tablet,extended 1,200 mg PO BEDTIME 06/22/23 06/22/23 Unknown History release 24 hr (Gralise) Exam Height,Weight and Vital Signs: Height 5 ft Weight 82.1 kg Last Vital Signs Pulse 90 06/22/23 12:10 Resp 18 06/22/23 12:10 BP 115/56 L 06/22/23 12:10 Pulse Ox 97 06/22/23 12:10 O2 Del Method Room Air 06/22/23 12:10 Pertinent Lab Results Pertinent Lab Results: 05/2023 CBC from outside facility WNL 02/2023 BMP from outside facility WNL except BUN @ 27 Narrative Narrative: EKG 04/2023 Vent. Rate : 098 BPM Atrial Rate : 098 BPM P-R Int : 148 ms QRS Dur : 096 ms QT Int : 348 ms P-R-T Axes : 064 067 044 degrees QTc Int : 444 ms Normal sinus rhythm Normal ECG No previous ECGs available Chest CT 05/2023 Postoperative changes in anterior mediastinum. No evidence of thymoma recurrence. Unchanged 6mm solid pulmo nodule in RLL. F/u with low-dose lung ca screening program. Unchanged L adrenal gland adenoma. PFT 09/2022 Mild obstruction. No signif response to bronchodilator Gold category 1 MVV is c/w the level of FEV1 TLC is nml Carbon monoxide diffusing capacity is normal. ABG on room air shows nml PO2 Mixed respiratory and metabolic alkalosis. Airway Mallampati Class: III TM Dist: >3cm Neck ROM: Full Partial: Upper Heart: RRR Lungs: CTAB Assessment and Plan Assessment Anesthesia Assessment: Anesthesia Plan Discussed and PAT Visit Final Anesthetic Review Family History of Problems with Anesthesia: No History of Problems with Anesthesia: No
--- NOTE | 2023-08-22 09:55 | HO.ANESPROP2 ---
Documented by User: Odalys Kovacs NP 08/22/23 09:57 HPI - Anesthesia Eval Consult details Narrative: 62yo F for Right L5 Foraminotomy (rescheduled from 05/2023) Pulmo cleared No recent illness No CP. WEN is baseline with COPD. s/p thymectomy 10/2022. Multiple intubation attempts - see highlighted [facility] anesthesia record on chart GERD. PPI BID. Still with rare GERD FERCHO. CPAP QHS. COPD. Ex smoker. Previously on home O2, 2-4L 24 hours 10/2022-03/2023. Passed 6 minute walk test 03/2023 at pulva office PMF Active Problems Active Problems: All Active Problems (Updated 06/22/23 @ 11:57 by Leonora Holbrook RN) Pre-op chest exam (Acute) Chest pain (Acute) On supplemental oxygen therapy (Acute) Nocturnal hypoxemia (Acute) Fibromyalgia, primary (Acute) Spondylolisthesis, lumbar region (Acute) Pulmonary nodules (Acute) Thymoma (Acute) FERCHO on CPAP (Acute) COPD (chronic obstructive pulmonary disease) (Acute) Past Medical History Medical History GERD (gastroesophageal reflux disease) Depression Arthritis Fibromyalgia Pulmonary nodules Thymoma FERCHO on CPAP COPD (chronic obstructive pulmonary disease) Family History Family History Mother COPD (chronic obstructive pulmonary disease) Father Prostate CA Family history of problems with anesthesia: No Surgical History Surgical History Hx of foot surgery History of esophagogastroduodenoscopy (EGD) H/O colonoscopy H/O thymectomy H/O parotidectomy H/O tubal ligation H/O sinus surgery History of Problems with Anesthesia: No Social History Social History Household Members: Spouse Are you a primary respiratory care technician to a significant other at home: No Do you presently have visiting nurse or other home services: Yes (Meals on Wheels) Alcohol intake: never Patient Tobacco Use Status: Former Tobacco user Quit Date: age 43 Tobacco use type: Cigarette Cigarette Packs Per Day: 1 Years Smoked: 20 Use of substances other than those prescribed or required for medical reasons: No Have you been hit, kicked, punched, or otherwise hurt by someone within the past year? If so, by whom?: No Are you DNR?: No Advance Directives: No Advance Directives Information Provided: Yes Advance Directives on File: No Recently lost weight without trying: No Eating poorly because of decreased appetite: No Nutrition Risks: No Nutritional Risk Poor oral hygiene: No (upper partial) Meds Allergies Allergy/AdvReac Type Severity Reaction Status Date / Time hydromorphone [From Dilaudid] Allergy Severe Nausea Verified 08/08/23 10:02 levofloxacin [From Levaquin] Allergy Severe lost Verified 08/08/23 10:02 feeling in legs oxycodone Allergy Severe Vomiting Verified 08/08/23 10:02 adhesive tape AdvReac Severe Blister Verified 08/08/23 10:02 amoxicillin [From Augmentin] AdvReac Severe Gastrointestinal Verified 08/08/23 10:02 Upset clavulanic acid AdvReac Severe Gastrointestinal Verified 08/08/23 10:02 [From Augmentin] Upset clarithromycin [From Biaxin] AdvReac Intermediate Nausea and Verified 08/08/23 10:02 Vomiting clindamycin AdvReac Intermediate Nausea and Verified 08/08/23 10:02 Vomiting doxycycline AdvReac Intermediate Nausea and Verified 08/08/23 10:02 Vomiting Sulfa (Sulfonamide AdvReac Intermediate Nausea and Verified 08/08/23 10:02 Antibiotics) Vomiting Home Medications Medication Instructions Recorded Confirmed Last Taken Type albuterol sulfate 90 mcg/actuation 2 mcg inhalation Q4H PRN Shortness 07/19/22 06/22/23 Unknown History aerosol inhaler Of Breath Or Wheezing escitalopram oxalate 10 mg tablet 10 mg PO DAILY 07/19/22 06/22/23 Unknown History lisinopril 2.5 mg tablet 2.5 mg PO BID 07/19/22 06/22/23 Unknown History milnacipran 100 mg tablet (Savella) 100 mg PO BID 07/19/22 06/22/23 Unknown History modafinil 200 mg tablet (Provigil) 200 mg PO BID 07/19/22 06/22/23 Unknown History omeprazole 40 mg capsule,delayed 40 mg PO BID 07/19/22 06/22/23 Unknown History release trazodone 50 mg tablet 100 mg PO BEDTIME PRN Insomnia 07/19/22 06/22/23 Unknown History vitamin B complex and vitamin C 1 cap PO DAILY 07/19/22 06/22/23 Unknown History no.20-folic acid 1 mg capsule baclofen 10 mg tablet 10 mg PO TID 10/24/22 06/22/23 Unknown History cholecalciferol (vitamin D3) 25 25 mcg PO DAILY 10/24/22 06/22/23 Unknown History mcg (1,000 unit) capsule hydroxyzine HCl 25 mg tablet 25 mg PO TID PRN itch 10/24/22 06/22/23 Unknown History abaloparatide (Tymlos) 80 mcg subcut DAILY 04/19/23 06/22/23 Unknown History cetirizine 10 mg tablet 10 mg PO DAILY 06/22/23 06/22/23 Unknown History gabapentin 600 mg tablet,extended 1,200 mg PO BEDTIME 06/22/23 06/22/23 Unknown History release 24 hr (Gralise) lorazepam 1 mg tablet 1 mg PO DAILY PRN 08/08/23 Unknown History Exam Height,Weight and Vital Signs: Height 5 ft Weight 82.1 kg Last Vital Signs Pulse 90 06/22/23 12:10 Resp 18 06/22/23 12:10 BP 115/56 L 06/22/23 12:10 Pulse Ox 97 06/22/23 12:10 O2 Del Method Room Air 06/22/23 12:10 Pertinent Lab Results Pertinent Lab Results: 05/2023 CBC from outside facility WNL 02/2023 BMP from outside facility WNL except BUN @ 27 Narrative Narrative: EKG 04/2023 Vent. Rate : 098 BPM Atrial Rate : 098 BPM P-R Int : 148 ms QRS Dur : 096 ms QT Int : 348 ms P-R-T Axes : 064 067 044 degrees QTc Int : 444 ms Normal sinus rhythm Normal ECG No previous ECGs available Chest CT 05/2023 Postoperative changes in anterior mediastinum. No evidence of thymoma recurrence. Unchanged 6mm solid pulmo nodule in RLL. F/u with low-dose lung ca screening program. Unchanged L adrenal gland adenoma. PFT 09/2022 Mild obstruction. No signif response to bronchodilator Gold category 1 MVV is c/w the level of FEV1 TLC is nml Carbon monoxide diffusing capacity is normal. ABG on room air shows nml PO2 Mixed respiratory and metabolic alkalosis. Airway Mallampati Class: III TM Dist: >3cm Neck ROM: Full Partial: Upper Heart: RRR Lungs: CTAB Assessment and Plan Assessment Anesthesia Assessment: Chart Reviewed (Previously seen in [facility] 05/2023) Final Anesthetic Review Family History of Problems with Anesthesia: No History of Problems with Anesthesia: No Documented by User: Amrit Mari MD 08/23/23 13:28 [facility] Past Medical History Medical History GERD (gastroesophageal reflux disease) Depression Arthritis Fibromyalgia Pulmonary nodules Thymoma FERCHO on CPAP COPD (chronic obstructive pulmonary disease) Family History Family History Mother COPD (chronic obstructive pulmonary disease) Father Prostate CA Surgical History Surgical History Hx of foot surgery History of esophagogastroduodenoscopy (EGD) H/O colonoscopy H/O thymectomy H/O parotidectomy H/O tubal ligation H/O sinus surgery Social History Social History Household Members: Spouse Are you a primary respiratory care technician to a significant other at home: No Do you presently have visiting nurse or other home services: Yes (Meals on Wheels) Alcohol intake: never Patient Tobacco Use Status: Former Tobacco user Quit Date: age 43 Tobacco use type: Cigarette Cigarette Packs Per Day: 1 Years Smoked: 20 Use of substances other than those prescribed or required for medical reasons: No Have you been hit, kicked, punched, or otherwise hurt by someone within the past year? If so, by whom?: No Are you DNR?: No Advance Directives: No Advance Directives Information Provided: Yes Advance Directives on File: No Recently lost weight without trying: No Eating poorly because of decreased appetite: No Nutrition Risks: No Nutritional Risk Poor oral hygiene: No (upper partial) Meds Allergies Allergy/AdvReac Type Severity Reaction Status Date / Time hydromorphone [From Dilaudid] Allergy Severe Nausea Verified 08/08/23 10:02 levofloxacin [From Levaquin] Allergy Severe lost Verified 08/08/23 10:02 feeling in legs oxycodone Allergy Severe Vomiting Verified 08/08/23 10:02 adhesive tape AdvReac Severe Blister Verified 08/08/23 10:02 amoxicillin [From Augmentin] AdvReac Severe Gastrointestinal Verified 08/08/23 10:02 Upset clavulanic acid AdvReac Severe Gastrointestinal Verified 08/08/23 10:02 [From Augmentin] Upset clarithromycin [From Biaxin] AdvReac Intermediate Nausea and Verified 08/08/23 10:02 Vomiting clindamycin AdvReac Intermediate Nausea and Verified 08/08/23 10:02 Vomiting doxycycline AdvReac Intermediate Nausea and Verified 08/08/23 10:02 Vomiting Sulfa (Sulfonamide AdvReac Intermediate Nausea and Verified 08/08/23 10:02 Antibiotics) Vomiting Home Medications Medication Instructions Recorded Confirmed Last Taken Type albuterol sulfate 90 mcg/actuation 2 mcg inhalation Q4H PRN Shortness 07/19/22 06/22/23 Unknown History aerosol inhaler Of Breath Or Wheezing escitalopram oxalate 10 mg tablet 10 mg PO DAILY 07/19/22 06/22/23 Unknown History lisinopril 2.5 mg tablet 2.5 mg PO BID 07/19/22 06/22/23 Unknown History milnacipran 100 mg tablet (Savella) 100 mg PO BID 07/19/22 06/22/23 Unknown History modafinil 200 mg tablet (Provigil) 200 mg PO BID 07/19/22 06/22/23 Unknown History omeprazole 40 mg capsule,delayed 40 mg PO BID 07/19/22 06/22/23 Unknown History release trazodone 50 mg tablet 100 mg PO BEDTIME PRN Insomnia 07/19/22 06/22/23 Unknown History vitamin B complex and vitamin C 1 cap PO DAILY 07/19/22 06/22/23 Unknown History no.20-folic acid 1 mg capsule baclofen 10 mg tablet 10 mg PO TID 10/24/22 06/22/23 Unknown History cholecalciferol (vitamin D3) 25 25 mcg PO DAILY 10/24/22 06/22/23 Unknown History mcg (1,000 unit) capsule hydroxyzine HCl 25 mg tablet 25 mg PO TID PRN itch 10/24/22 06/22/23 Unknown History abaloparatide (Tymlos) 80 mcg subcut DAILY 04/19/23 06/22/23 Unknown History cetirizine 10 mg tablet 10 mg PO DAILY 06/22/23 06/22/23 Unknown History gabapentin 600 mg tablet,extended 1,200 mg PO BEDTIME 06/22/23 06/22/23 Unknown History release 24 hr (Gralise) lorazepam 1 mg tablet 1 mg PO DAILY PRN 08/08/23 Unknown History Exam Airway Mallampati Class: III Assessment and Plan Assessment Anesthesia Assessment: Anesthesia Plan Discussed Final Anesthetic Review NPO: Yes ASA Class: III Final Preanesthetic Review: No Changes in Pt Med Stat, Meds/Allgs Chart Reviewed and Consent Obtained/Reviewed Patient Risk: Intermediate Procedure Risk: Intermediate Assessment/Block/Sedation in SS: Assess/Block/Sedation-SS Anesthetic Plan Anesthetic Plan: GA Disposition: Standard PACU
[2023-08-23] VITALS (16 sets, daily range): BP systolic 106–136; BP diastolic 45–64; PULSE 62–92; RESP 14–20; TEMP 36.2–37.3; O2SAT 94–100; BMI 35.6
--- NOTE | ~2023-08-23 | FL_ITS ---
CLINICAL INDICATION: Back pain. FINDINGS: Technical assistance and equipment were provided by the Department of Radiology during intraoperative fluoroscopy for L5 foraminotomy, right. 1, limited fluoroscopic spot image is submitted. A radiologist was not present during the procedure. The image submitted is very limited by audible technique, underpenetration, and patient body habitus. A surgical retractor and metallic surgical devices project roughly over the level of the posterior aspect of what is probably the L5-S1 disc space. The patient is status post vertebroplasty or kyphoplasty of an upper lumbar vertebral body, probably L2. The image is available for review on PACS. TOTAL FLUOROSCOPY TIME: 16 seconds. DOSE AREA PRODUCT: 4.1 Gy-cm2 (garcia-centimeter squared) FL/FL guidance in OR IMPRESSION: Technical assistance and equipment provided by the Department of Radiology during intraoperative fluoroscopy, as above. Please see operative report for further details.
--- NOTE | 2023-08-23 07:30 | MHC.SHP ---
Pre-Procedural Eval Section A - 24 Hr Update-Section A only Date of Service: 08/23/23 The patient is an INPATIENT: No Changes since office visit: No Cold of Flu in the past 2 weeks, No New Medical Problems, No Changes in Medication and No Patient answered all questions Section B - Complete if H&P > 30 days Chief Complaint: Spondylolisthesis, lumbar region Allergies: Allergies Allergy/AdvReac Type Severity Reaction Status Date / Time hydromorphone [From Dilaudid] Allergy Severe Nausea Verified 08/08/23 10:02 levofloxacin [From Levaquin] Allergy Severe lost Verified 08/08/23 10:02 feeling in legs oxycodone Allergy Severe Vomiting Verified 08/08/23 10:02 adhesive tape AdvReac Severe Blister Verified 08/08/23 10:02 amoxicillin [From Augmentin] AdvReac Severe Gastrointestinal Verified 08/08/23 10:02 Upset clavulanic acid AdvReac Severe Gastrointestinal Verified 08/08/23 10:02 [From Augmentin] Upset clarithromycin [From Biaxin] AdvReac Intermediate Nausea and Verified 08/08/23 10:02 Vomiting clindamycin AdvReac Intermediate Nausea and Verified 08/08/23 10:02 Vomiting doxycycline AdvReac Intermediate Nausea and Verified 08/08/23 10:02 Vomiting Sulfa (Sulfonamide AdvReac Intermediate Nausea and Verified 08/08/23 10:02 Antibiotics) Vomiting Review of Systems Sugical H&P ROS: Negative: Constitution, Cardiovascular, Respiratory, Neurological, Psychiatric, Hem-Onc, Allergic/Immunologic, Gastrointestinal, Genitourinary, Musculoskeletal, Integumentary, Endocrine and Eyes/Ears/Nose/Throat Exam Surgical H&P Exam: Not Evaluated: HEENT, Not Evaluated: Heart, Not Evaluated: Lungs, Not Evaluated: Extremities, Not Evaluated: Abdomen, Not Evaluated: Skin and Not Evaluated: Neurological Plan Diagnosis/Plan: Unchanged right L5 foramintomy Time Spent With Patient Time: Total time managing care of this patient today _6___ minutes.
[2023-08-23] MEDS: methocarbamoL 750 MG TABLET PO (11:57)
[2023-08-23] MEDS: Gabapentin 300 MG CAPSULE PO (11:57)
[2023-08-23] MEDS: Lactated Ringers 1,000 ML 100 ML IVCONT (12:19)
[2023-08-23] MEDS: vancomycin HCL 1,500 MG in 0.9 % Sodium Chloride 500 ML 333.33 MG IV (12:19)
--- NOTE | 2023-08-23 14:02 | P.OP_ITS ---
Operative Note Operative Note Date of Service: 08/23/23 Narrative: Preoperative Diagnosis: Spinal stenosis/lateral recess stenosis/neural foraminal stenosis Operation: Right L5 Laminotomy, facetectomy and foraminotomy with use of microscope Consent Informed Consent was obtained for this operation. I have explained the nature, purpose and benefits of the operation. I have discussed the risks and benefit of the operation including possible complications or adverse events with patie nt/family. Alternative(s) were discussed with the patient with their relative benefits and risks as well as the consequences of not accepting the operation were included in obtaining consent. Surgeon: CASSY GARRIDO MD, PHD Procedure Assisted By: DIGNA Mckinley Description of Procedure This 60-year-old female suffering for right lumbar radiculopathy due to right L5 neuroforaminal stenosis The patient was offered a decompression of the nervous structures. The procedure complications were explained. The patient was consented. The patient was brought to the operating room and endotracheally intubated. The patient was turned in prone position on the Augustin frame. Prep and drape was done followed by timeout. Physician geriatric nursing assistant provided access. A mid lumbar incision was made followed by release of the paravertebral muscle on the right side to expose the L5 lamina and facet joint. An intraoperative x-ray was obtained to confirm the correct level. The microscope was brought in. I took over the procedure. The high-speed drill was used to do a L5 laminotomy. #2 Kerrison was used to further remove the lamina towards the L5 foramen. Patient is suffering from osteoporosis and during the process the inferior articular process of L5 came loose and was removed. This immediately led to a complete decompression of the L5 nerve root offered trajectory. A long nerve hook could be easily passed lateral and dorsally from the nerve root, a sign of relief of the neuroforaminal stenosis and decompression of the nerve root . The microscope was removed. Hemostasis was done. Incision was closed in 2 layers. Steri-Strips were used to approximate incision. An OpSite with Tegaderm was used to cover the incision. All sponge needle counts were correct. Patient was extubated and transported in stable is to recovery room. Anesthesia: General Estimated Blood Loss (ml): Minimal Duration of Surgery: Under 60 Minutes Postoperative Plan: Discharge to home
--- NOTE | 2023-08-23 14:21 | P.DS_ITS ---
DS: Providers Provider Date of Service: 08/23/23 Primary care physician: DIGNA Andrade DS: Summary Time Attestation Discharge coordination time: Less than 30 minutes Quality: Safe Use of Opioids Does Pt have an Active Cancer Diagnosis on the Problem List?: No Quality: Stroke Does the patient have a stroke diagnosis?: No Physical Exam Vital Signs: Vital Signs: Last Vital Signs Temp 99.2 F 08/23/23 11:36 Pulse 84 08/23/23 11:36 Resp 18 08/23/23 11:36 BP 125/52 L 08/23/23 11:36 Pulse Ox 95 08/23/23 11:36 O2 Del Method Room Air 08/23/23 11:36 BMI result Body Mass Index 35.6 Discharge Plan Discharge Patient Disposition: Home, Self-Care Referrals: Purnima Stock PA [Primary Care Provider] - 1 Week Discharge Medications: New tramadol 50 mg tablet 50 mg PO Q4-6H PRN (Reason: severe pain (scale score 7-10)) Qty: 30 0RF Continued fluconazole 100 mg tablet 100 mg PO DAILY 14 Days Qty: 14 0RF cetirizine 10 mg Tablet 10 mg PO DAILY Gralise 600 mg tablet extended release 24 hr 1,200 mg PO BEDTIME albuterol sulfate 90 mcg/actuation HFA aerosol inhaler 2 mcg inhalation Q4H PRN (Reason: Shortness Of Breath Or Wheezing) escitalopram oxalate 10 mg tablet 10 mg PO DAILY lisinopril 2.5 mg tablet 2.5 mg PO BID omeprazole 40 mg capsule,delayed release(DR/EC) 40 mg PO BID trazodone 50 mg tablet 100 mg PO BEDTIME PRN (Reason: Insomnia) Savella 100 mg tablet 100 mg PO BID modafinil [Provigil] 200 mg tablet 200 mg PO BID B complex with C 20-folic acid 1 mg capsule 1 cap PO DAILY hydroxyzine HCl 25 mg tablet 25 mg PO TID PRN (Reason: itch) baclofen 10 mg tablet 10 mg PO TID cholecalciferol (vitamin D3) 25 mcg (1,000 unit) capsule 25 mcg PO DAILY (DME) Aerochamber MV Spacer See Rx Instructions miscellaneous .MEDSUPPLY Qty: 1 0RF Rx Instructions: As directed Tymlos 80 mcg (3,120 mcg/1.56 mL) pen injector 80 mcg subcut DAILY Rx Instructions: inject into abdomen; do not inject within 2 inches of belly button/navel; ro ivory sites lorazepam 1 mg tablet 1 mg PO DAILY PRN Discharge Orders: Discharge Order (Routine); Ordered 08/23/23 Ordered By: Paolo Hebert Diet: Advance to usual diet Activity on Discharge: As tolerated Activity Restrictions/Additional Instructions: After your spinal surgery we ask you to observe the following restrictions/guidelines: Activity: It is normal to feel some discomfort as you increase your activity, but that will improve with time. We ask you avoid heavy lifting or acitivities that cause pain. As a general rule, 8lbs is a safe limit for lifting right after surgery. Walk as much as you feel comfortable but not to exhaustion. You will feel extra tired the first few days after surgery. Stay well hydrated. It is OK to walk up and down stairs You may return to driving when you are off narcotics (such as vicodin, oxycodone, dilaudid, etc), and you are back to normal functional capacity. If you have any concerns please check with office before driving. Return to work is specific to each patient and each surgery, so please speak with your doctor/PA at first follow up. Please bring paperwork such as FMLA at that time if you need it filled out. Medications: We will give you a short supply of narcotics after surgery (usually one weeks worth). If you need more please call the office but do not use more than prescribed. You will need to give our office 48 hours notice if you need narcotics refilled and we do not fill narcotics on weekends or evenings. If you are on a narcotic, it is a good idea to take a stool softener such as colace or senna to avoid constipation If you take blood thinner such as aspirin, Plavix, Coumadin, Effient, Eliquis etc for conditions such as Afib, DVT, Pulmonary embolus, coronary disease, stents etc please speak with your surgeon about specific details as to when you can resume these medications. You can resume NSAIDs on post op day 1 (eg: Motrin, Naproxen, etc). Follow up: Please call the office, , after surgery to arrange a 3 week follow up for wound check. Wound Care: You may remove your dressing on the first day after surgery. ?You may ?leave o pen to air. Please do not remove the steri strips underneath. they will fall off on their own in one week. IT IS NORMAL FOR THE WOUND TO OOZE OR BE BLOODY FOR A FEW DAYS AFTER SURGERY. ?IF THIS HAPPENS JUST PLACE NEW DRESSING OVER IT TO AVOID STAINING CLOTHES. You may shower on post op day # 1 We ask that you do not let the water soak the wound. If it does get wet, just towel dry lightly. Please do not scrub your incision or place any type of chemical/ointment on the wound. No tub baths, pools or jacuzzis for one month. If you have any leaking or redness from your wound, or fevers, please call the office.
[2023-08-23] MEDS: fentaNYL citrate/PF 100 MCG/2 ML VIAL 25 MCG IVPUSH ×2 (15:00→15:50)
[2023-08-23] MEDS: traMADoL HCL 50 MG TABLET PO (15:00)
== END 2023-08-23 17:03 | disposition home or self-care (01) ==
PROVIDERS: PCP Physician Assistant Medical; Visit Provider Neurological Surgery
PROC: (CPT 63047; principal; 2023-08-23 15:30)
DX: M43.16 Spondylolisthesis, lumbar region (principal); M48.061 Spinal stenosis, lumbar region without neurogenic claudication; J44.9 Chronic obstructive pulmonary disease, unspecified; R91.8 Other nonspecific abnormal finding of lung field; M79.7 Fibromyalgia; M81.0 Age-related osteoporosis without current pathological fracture; D49.89 Neoplasm of unspecified behavior of other specified sites; R07.82 Intercostal pain; G47.33 Obstructive sleep apnea (adult) (pediatric); Z99.89 Dependence on other enabling machines and devices; Z79.899 Other long term (current) drug therapy; L23.1 Allergic contact dermatitis due to adhesives; Z88.0 Allergy status to penicillin; Z88.1 Allergy status to other antibiotic agents; Z88.2 Allergy status to sulfonamides; Z87.891 Personal history of nicotine dependence; Z98.890 Other specified postprocedural states; Z79.51 Long term (current) use of inhaled steroids
CPT/HCPCS: 63047; J0131; J1885; J2704; J3010; J3371

== ENCOUNTER → 2023-08-23 11:20 | Outpatient (BNV) | payer MEDICARE, MEDICAID, SELFPAY | PROVIDERS: PCP Physician Assistant Medical; Visit Provider Neurological Surgery | DX: M48.062 Spinal stenosis, lumbar region with neurogenic claudication (principal) | CPT/HCPCS: 63047; 99499 ==

== ENCOUNTER 2023-08-31 11:12 | Outpatient (AMB) | payer MEDICARE, MEDICAID, SELFPAY ==
--- NOTE | 2023-08-31 11:22 | HO.SPINEOV ---
Intake Intake Visit Reasons: wound check Intake Note: Ms. Jasso is here today for wound check. Sausage Stringer Required: No Allergies levofloxacin [From Levaquin] Allergy (Severe, Verified 08/08/23 10:02) lost feeling in legs adhesive tape Adverse Reaction (Severe, Verified 08/08/23 10:02) Blister amoxicillin [From Augmentin] Adverse Reaction (Severe, Verified 08/08/23 10:02) Gastrointestinal Upset clavulanic acid [From Augmentin] Adverse Reaction (Severe, Verified 08/08/23 10:02) Gastrointestinal Upset hydromorphone [From Dilaudid] Adverse Reaction (Severe, Verified 08/23/23 13:32) Nausea oxycodone Adverse Reaction (Severe, Verified 08/23/23 13:32) Vomiting clarithromycin [From Biaxin] Adverse Reaction (Intermediate, Verified 08/08/23 10:02) Nausea and Vomiting clindamycin Adverse Reaction (Intermediate, Verified 08/08/23 10:02) Nausea and Vomiting doxycycline Adverse Reaction (Intermediate, Verified 08/08/23 10:02) Nausea and Vomiting Sulfa (Sulfonamide Antibiotics) Adverse Reaction (Intermediate, Verified 08/08/23 10:02) Nausea and Vomiting Assessment & Plan Assessment & Plan (1) Status post lumbar surgery: Code(s): Z98.890 - Other specified postprocedural states Plan Procedure: Right L5 Laminotomy, facetectomy and foraminotomy POD: 8 Gladys comes in today for an incision check after having a right-sided L5 foraminotomy completed last week. She was concerned that the wound had slightly opened when compared to it status postoperatively. Due to the patient's body habitus I believe that when she sits in bends over it causes excessive pulling on the midline of her spine, which likely is causing the wound to open/reclose daily. There is no active drainage from the incision site. There is no edema, erythema, fluctuance, or purulent drainage. The patient elicits no pain to palpation around the edge of the incision. I cleanse the area with alcohol, and reapproximated the incision edges with Exofin during this visit. Due to the wound being manipulated today under nonsterile conditions, I placed the patient on a short course of doxycycline as a preventative measure. Otherwise Gladys his progressing as expected. We will see her at her routinely scheduled 1st postoperative visit. Paolo Clarke MD,PhD [facility] [employer] Medications: New doxycycline hyclate 100 mg PO BID 7 days 14 caps 0RF infection prophylaxis post wound closure ondansetron HCl 4 mg PO BID PRN 14 tabs 0RF nausea and vomiting Coding Level of Care Code Global (88291) Diagnoses Status post lumbar surgery Z98.890
== END 2023-08-31 11:52 | disposition home or self-care (01) ==
PROVIDERS: PCP Physician Assistant Medical; Visit Provider Physician Assistant
DX: Z98.890 Other specified postprocedural states (principal)
CPT/HCPCS: 99024

== ENCOUNTER → 2023-08-31 11:12 | Outpatient (BNVA) | payer MEDICARE, MEDICAID, SELFPAY | PROVIDERS: PCP Physician Assistant Medical; Visit Provider Physician Assistant | DX: Z48.1 Encounter for planned postprocedural wound closure (principal); Z98.890 Other specified postprocedural states | CPT/HCPCS: 99212 ==

== ENCOUNTER 2023-09-04 13:32 | Outpatient (AMB) | payer MEDICARE, MEDICAID, SELFPAY ==
--- NOTE | 2023-09-04 13:54 | HO.SPINEOV ---
Intake Intake Visit Reasons: wound check Intake Note: Ms. Jasso is here today for Wound check Lending Manager Required: No Allergies levofloxacin [From Levaquin] Allergy (Severe, Verified 08/08/23 10:02) lost feeling in legs adhesive tape Adverse Reaction (Severe, Verified 08/08/23 10:02) Blister amoxicillin [From Augmentin] Adverse Reaction (Severe, Verified 08/08/23 10:02) Gastrointestinal Upset clavulanic acid [From Augmentin] Adverse Reaction (Severe, Verified 08/08/23 10:02) Gastrointestinal Upset hydromorphone [From Dilaudid] Adverse Reaction (Severe, Verified 08/23/23 13:32) Nausea oxycodone Adverse Reaction (Severe, Verified 08/23/23 13:32) Vomiting clarithromycin [From Biaxin] Adverse Reaction (Intermediate, Verified 08/08/23 10:02) Nausea and Vomiting clindamycin Adverse Reaction (Intermediate, Verified 08/08/23 10:02) Nausea and Vomiting doxycycline Adverse Reaction (Intermediate, Verified 08/08/23 10:02) Nausea and Vomiting Sulfa (Sulfonamide Antibiotics) Adverse Reaction (Intermediate, Verified 08/08/23 10:02) Nausea and Vomiting Assessment & Plan Assessment & Plan (1) Status post lumbar surgery: Code(s): Z98.890 - Other specified postprocedural states Plan Gladys comes in today for a subsequent postoperative wound check. We attempted x 2 to close her wound with Exofin. Unfortunately this was not sufficient enough to keep her wound closed. Due to her body habitus it makes it quite difficult to keep this particular area from experiencing a great deal of stress when she sits or bends over. In clinic today the incision site was evaluated by DIGNA Padilla and myself who agreed that excision of the nonvascular tissue surrounding the incision and re-approximation with simple interrupted sutures was 1 way to get the incision to close properly. The other way would simply to allow the wound to heal via secondary intention, with regular cleansing of the area. The slow healing process of secondary intention healing was concerning for Gladys, and she was touching the area quite frequently per her report. She preferred to have the wound completely closed via the 1st suggested approach. We discussed this plan with the attending Neurosurgeon Dr. Clarke who was in agreement. We closed the incision with superficial interrupted sutures here in office today. This was done in a sterile fashion. We opened up a suture kit, and I donned sterile gloves. The incision was cleansed with Betadine. The patient was draped. She was anesthetized with 5 mL of 1% lidocaine. I excised the avascular tissue on each edge of the incision. Then I placed 5 simple interrupted sutures with 4-0 Prolene. There was minimal blood loss (less than 5 mL) and the patient tolerated the procedure well. I covered the area with non-adherent gauze and surgical tape. The plan is to have Gladys come in again on Sunday (09/06) for a subsequent wound check. I called in a prescription for Percocet for her. I also called her in a 7 day course of Bactrim, as this procedure was considered semi sterile, but not completely sterile such as those completed in the operating room. Paolo Clarke MD,PhD [facility] Medications: New oxycodone-acetaminophen 5-325 mg Partial Fill upon patient request. 1 tab PO Q6H PRN 30 tabs 0RF severe pain (scale score 7-10) sulfamethoxazole-trimethoprim 800-160 mg (Bactrim DS) 1 tab PO BID 7 days 14 tabs 0RF surgical prophylaxis Discontinued hydrocodone-acetaminophen 5-325 mg Partial Fill upon patient request. Discontinued Reason: None 1 tab PO Q6H PRN 30 tabs 0RF pain Coding Level of Care Code Global (96760) Diagnoses Status post lumbar surgery Z98.890
== END 2023-09-04 14:26 | disposition home or self-care (01) ==
PROVIDERS: PCP Physician Assistant Medical; Visit Provider Physician Assistant
DX: Z98.890 Other specified postprocedural states (principal)
CPT/HCPCS: 99024

== ENCOUNTER → 2023-09-04 13:32 | Outpatient (BNVA) | payer MEDICARE, MEDICAID, SELFPAY | PROVIDERS: PCP Physician Assistant Medical; Visit Provider Physician Assistant | DX: Z48.00 Encounter for change or removal of nonsurgical wound dressing (principal); Z98.890 Other specified postprocedural states | CPT/HCPCS: 99212 ==

== ENCOUNTER 2023-09-07 13:33 | Outpatient (AMB) | payer MEDICARE, MEDICAID, SELFPAY ==
--- NOTE | 2023-09-07 13:37 | A.SPINEOV_ITS ---
Intake Intake Visit Reasons: wound check Intake Note: Ms. Jasso is here today to F/u wound check. Network Support Technician Required: No Allergies levofloxacin [From Levaquin] Allergy (Severe, Verified 08/08/23 10:02) lost feeling in legs adhesive tape Adverse Reaction (Severe, Verified 08/08/23 10:02) Blister amoxicillin [From Augmentin] Adverse Reaction (Severe, Verified 08/08/23 10:02) Gastrointestinal Upset clavulanic acid [From Augmentin] Adverse Reaction (Severe, Verified 08/08/23 10:02) Gastrointestinal Upset hydromorphone [From Dilaudid] Adverse Reaction (Severe, Verified 08/23/23 13:32) Nausea oxycodone Adverse Reaction (Severe, Verified 08/23/23 13:32) Vomiting clarithromycin [From Biaxin] Adverse Reaction (Intermediate, Verified 08/08/23 10:02) Nausea and Vomiting clindamycin Adverse Reaction (Intermediate, Verified 08/08/23 10:02) Nausea and Vomiting doxycycline Adverse Reaction (Intermediate, Verified 08/08/23 10:02) Nausea and Vomiting Sulfa (Sulfonamide Antibiotics) Adverse Reaction (Intermediate, Verified 08/08/23 10:02) Nausea and Vomiting Assessment & Plan Assessment & Plan (1) Status post lumbar surgery: Code(s): Z98.890 - Other specified postprocedural states Plan Mrs Calderon wound looks great, the sutures are in place. She will continue with a Hibiclens wash, she has a few more days of antibiotics but there is no signs of infection, no redness no pain or discharge. She has a follow-up with Paolo SAWYER next week and if the wound looks good sutures can come out. Brendon Clarke MD, PhD [facility] Coding Level of Care Code Global (31037) Diagnoses Status post lumbar surgery Z98.890
== END 2023-09-07 14:41 | disposition home or self-care (01) ==
PROVIDERS: PCP Physician Assistant Medical; Visit Provider Physician Assistant
DX: Z98.890 Other specified postprocedural states (principal)
CPT/HCPCS: 99024

== ENCOUNTER → 2023-09-07 13:33 | Outpatient (BNVA) | payer MEDICARE, MEDICAID, SELFPAY | PROVIDERS: PCP Physician Assistant Medical; Visit Provider Physician Assistant | DX: Z98.890 Other specified postprocedural states (principal) | CPT/HCPCS: 99212 ==

== ENCOUNTER 2023-09-13 11:16 | Outpatient (AMB) | payer MEDICARE, MEDICAID, SELFPAY ==
--- NOTE | 2023-09-13 11:21 | HO.SPINEOV ---
Intake Intake Visit Reasons: 1st post op Intake Note: Ms. 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 Required: No Allergies levofloxacin [From Levaquin] Allergy (Severe, Verified 08/08/23 10:02) lost feeling in legs adhesive tape Adverse Reaction (Severe, Verified 08/08/23 10:02) Blister amoxicillin [From Augmentin] Adverse Reaction (Severe, Verified 08/08/23 10:02) Gastrointestinal Upset clavulanic acid [From Augmentin] Adverse Reaction (Severe, Verified 08/08/23 10:02) Gastrointestinal Upset hydromorphone [From Dilaudid] Adverse Reaction (Severe, Verified 08/23/23 13:32) Nausea oxycodone Adverse Reaction (Severe, Verified 08/23/23 13:32) Vomiting clarithromycin [From Biaxin] Adverse Reaction (Intermediate, Verified 08/08/23 10:02) Nausea and Vomiting clindamycin Adverse Reaction (Intermediate, Verified 08/08/23 10:02) Nausea and Vomiting doxycycline Adverse Reaction (Intermediate, Verified 08/08/23 10:02) Nausea and Vomiting Sulfa (Sulfonamide Antibiotics) Adverse Reaction (Intermediate, Verified 08/08/23 10:02) Nausea and Vomiting Assessment & Plan Assessment & Plan (1) Status post lumbar surgery: Code(s): Z98.890 - Other specified postprocedural states Plan Gladys comes in today for a subsequent wound check after having interrupted sutures placed on 09/04/2023 here in office to help with wound closure. The incision appears to be approximating well, and the patient reports no pain, no drainage, no other concerns. The sutures were removed during this visit today. She tolerated the removal well. A non stick gauze was placed with medical tape over the incision to discourage the patient from touching the incision. She reports that the incision has already itchy and she was again having a hard time trying to keep herself from itching the incision. For this reason she was advised to keep a non-stick gauze with medical tape over the incision for the next week. No creams or ointments on the area. She is agreeable to this. We will see her again in 2 weeks for a subsequent follow up. If she is doing well at that time there will be no need for routine follow up going forward. Paolo Clarke MD,PhD [facility] Medications: Changed From oxycodone-acetaminophen 5-325 mg Partial Fill upon patient request. 1 tab PO Q6H PRN 30 tabs 0RF severe pain (scale score 7-10) To oxycodone-acetaminophen 5-325 mg Partial Fill upon patient request. 1 tab PO BID PRN 14 tabs 0RF severe pain (scale score 7-10) Coding Level of Care Code Global (33609) Diagnoses Status post lumbar surgery Z98.890
== END 2023-09-13 11:35 | disposition home or self-care (01) ==
PROVIDERS: PCP Physician Assistant Medical; Visit Provider Physician Assistant
DX: Z98.890 Other specified postprocedural states (principal)
CPT/HCPCS: 99024

== ENCOUNTER → 2023-09-13 11:16 | Outpatient (BNVA) | payer MEDICARE, MEDICAID, SELFPAY | PROVIDERS: PCP Physician Assistant Medical; Visit Provider Physician Assistant | DX: Z48.89 Encounter for other specified surgical aftercare (principal); Z98.890 Other specified postprocedural states | CPT/HCPCS: 99212 ==

== ENCOUNTER 2023-10-09 13:37 | Outpatient (AMB) | payer MEDICARE, MEDICAID, SELFPAY ==
--- NOTE | 2023-10-09 13:52 | HO.SPINEOV ---
Intake Intake Visit Reasons: 2nd post op/subsequent f/up Intake Note: Ms. Jasso is here today for 2nd post-op Ticketing Clerk Required: No Allergies levofloxacin [From Levaquin] Allergy (Severe, Verified 08/08/23 10:02) lost feeling in legs adhesive tape Adverse Reaction (Severe, Verified 08/08/23 10:02) Blister amoxicillin [From Augmentin] Adverse Reaction (Severe, Verified 08/08/23 10:02) Gastrointestinal Upset clavulanic acid [From Augmentin] Adverse Reaction (Severe, Verified 08/08/23 10:02) Gastrointestinal Upset hydromorphone [From Dilaudid] Adverse Reaction (Severe, Verified 08/23/23 13:32) Nausea oxycodone Adverse Reaction (Severe, Verified 08/23/23 13:32) Vomiting clarithromycin [From Biaxin] Adverse Reaction (Intermediate, Verified 08/08/23 10:02) Nausea and Vomiting clindamycin Adverse Reaction (Intermediate, Verified 08/08/23 10:02) Nausea and Vomiting doxycycline Adverse Reaction (Intermediate, Verified 08/08/23 10:02) Nausea and Vomiting Sulfa (Sulfonamide Antibiotics) Adverse Reaction (Intermediate, Verified 08/08/23 10:02) Nausea and Vomiting Assessment & Plan Assessment & Plan (1) Status post lumbar surgery: Code(s): Z98.890 - Other specified postprocedural states Plan Gladys comes in today for a subsequent follow-up visit. She has been followed closely since her surgery after having issues with pruritus around the incision site, causing complications with her postoperative healing course. Thankfully her incision site has completely healed, and is not to the point where it is closed without any signs of drainage or scabbing. At this point, Gladys reports no significant symptoms related to her back surgery. She did recently injure her ankle, causing her to have a somewhat antalgic gait but this is unrelated. Gladys will be discharged as a patient at this time. There is no need for regular routine follow-up. Coding Level of Care Code Global (43722) Diagnoses Status post lumbar surgery Z98.890
== END 2023-10-09 14:25 | disposition home or self-care (01) ==
PROVIDERS: PCP Physician Assistant Medical; Visit Provider Physician Assistant
DX: Z98.890 Other specified postprocedural states (principal)
CPT/HCPCS: 99024

== ENCOUNTER → 2023-10-09 13:37 | Outpatient (BNVA) | payer MEDICARE, MEDICAID, SELFPAY | PROVIDERS: PCP Physician Assistant Medical; Visit Provider Physician Assistant | DX: Z09 Encounter for follow-up examination after completed treatment for conditions other than malignant neoplasm (principal); Z98.890 Other specified postprocedural states | CPT/HCPCS: 99212 ==

== ENCOUNTER 2023-11-15 13:03 | Outpatient (AMB) | payer MEDICARE, MEDICAID, SELFPAY ==
[2023-11-15 13:12] VITALS: PULSE 89; O2SAT 94; BMI 34.8
--- NOTE | 2023-11-15 13:12 | A.OFFVIS_ITS ---
Vital Signs 11/15/23 13:12 Height 5 ft Weight 178 lb BMI 34.8 Pulse 89 Pulse Source Pulse Oximeter Pulse Oximetry (%) 94 Oxygen Delivery Method Room Air Intake Visit Reasons: Emphysema Real Estate Closing Coordinator Required: No Allergies levofloxacin [From Levaquin] Allergy (Severe, Verified 11/15/23 13:13) lost feeling in legs adhesive tape Adverse Reaction (Severe, Verified 11/15/23 13:13) Blister amoxicillin [From Augmentin] Adverse Reaction (Severe, Verified 11/15/23 13:13) Gastrointestinal Upset clavulanic acid [From Augmentin] Adverse Reaction (Severe, Verified 11/15/23 13:13) Gastrointestinal Upset hydromorphone [From Dilaudid] Adverse Reaction (Severe, Verified 11/15/23 13:13) Nausea oxycodone Adverse Reaction (Severe, Verified 11/15/23 13:13) Vomiting clarithromycin [From Biaxin] Adverse Reaction (Intermediate, Verified 11/15/23 13:13) Nausea and Vomiting clindamycin Adverse Reaction (Intermediate, Verified 11/15/23 13:13) Nausea and Vomiting doxycycline Adverse Reaction (Intermediate, Verified 11/15/23 13:13) Nausea and Vomiting Sulfa (Sulfonamide Antibiotics) Adverse Reaction (Intermediate, Verified 11/15/23 13:13) Nausea and Vomiting HPI Comments Details: The patient is a 63 y/o woman with COPD, former smoker and FERCHO on CPAP. Having muliple complaints including chest tightness and shortness of breath. Moderate in severity. Her SUNDAR inhaler does not help. She did undergo PFTs at [facility] with mild COPD, but significant small airways disease. She also underwent a CT chest demonstrating moderate emphysema, multiple pulmonary nodules and an anterior mediastinal mass. She was dx with a thymoma. Denies any weakness or myasthenia Gravis. She will be undergoing surgery at [facility] soon. Also, she has been on CPAP for many years, However, her CPAP is no longer working. She does have an elevated Franklin score 05/18. 04/19/2023 the patient is here for a pulmonary follow-up visit. Overall the patient has been doing well. She did undergo her thymoma surgery. After she did have some chest discomfort. But it has been slowly getting better. Her breathing also been better. She does have oxygen right now. We did take her off the oxygen and did a 6 minute walk test. She was able to maintain pulse ox within the normal ranges. Therefore, is reasonable for her to discontinue the oxygen for now. will plan to reassess her again when she returns for her next follow-up visit. In the meantime her respiratory status is stable. the patient is scheduled to undergo spine surgery. At this point clinically the patient is doing better. the patient does have increased risk for perioperative pulmonary complications which includes atelectasis, hypoxia, pneumonia. At this point she is medically optimized from a pulmonary standpoint it may go ahead and proceed with anesthesia and surgery. She should keep the oxygen at home however. It is likely that she will needed postoperatively. The patient also underwent a home sleep study. The patient does have moderate degree of sleep apnea. She also underwent a titration study and they did recommend APAP. Therefore, I will submit for a replacement CPAP since her current CPAP is no longer functional. She does have an elevated Franklin score of 11/24. The patient does have cardiovascular risk factors therefore restarting her CPAP is important. 08/08/2023 the patient is here for a pulmonary follow-up visit. Overall she is doing well. She stopped the Symbicort because she was getting thrush. She is just doing well on the rescue inhaler. Unfortunately she could not have her surgery and now scheduled for the next few weeks from now. Clinically the patient is doing much better from a respiratory status and she really is not using the oxygen at this time. Like we plan the last time we want to retest her for oxygen needs after her surgery just in case she needs oxygen in the postoperative period. I do believe that she will not need it. She did get a new CPAP. The CPAP has been affecting beneficial she does use it for more than 4 hours a night with 100% compliance. Her AHI though continues to be a little elevated at 5.7. We did increase her pressures from 6-16 2 8-18 because she does need a higher pressure. I believe that this will help. 11/16/2023 the patient is here for a pulmonary follow-up visit. Overall the patient had been doing okay. Still using the Symbicort 2 thrush. We did talk about Anoro which would be a good agent for her specially with the chest tightness and wheezing. This 1 will not have the inhaled steroid to minimize the risk of any or mucosal irritation. The patient is agreeable to this. In meantime she has been using the CPAP. The CPAP therapy has been affecting beneficial. The patient did have her surgery and she tolerated it well though she did have some leakage from the wound for some period of time. As far as imaging studies the patient is due for CT scan in 08/14/2024. The patient continue with current respiratory therapy and CPAP follow-up in the spring. [facility] Medical History (Updated 11/19/23 @ 20:55 by Donell Partida MD) Dyspnea GERD (gastroesophageal reflux disease) Depression Arthritis Fibromyalgia Pulmonary nodules Thymoma FERCHO on CPAP COPD (chronic obstructive pulmonary disease) Surgical History (Updated 08/31/23 @ 11:48 by DIGNA Mckinley) Hx of foot surgery History of esophagogastroduodenoscopy (EGD) H/O colonoscopy H/O thymectomy H/O parotidectomy H/O tubal ligation H/O sinus surgery Family History Mother COPD (chronic obstructive pulmonary disease) Father Prostate CA Social History Household Members: Spouse Are you a primary lawn caretaker to a significant other at home: No Do you presently have visiting nurse or other home services: Yes (Meals on Wheels) Alcohol intake: never Patient Tobacco Use Status: Former Tobacco user Quit Date: age 43 Tobacco use type: Cigarette Cigarette Packs Per Day: 1 Years Smoked: 20 Review of Systems Const Reports daytime sleepiness, Reports difficulty sleeping, Denies fever(s) and Denies snoring Eyes Denies change in vision and Denies diplopia ENT Denies change in voice and Denies dysphagia Card Denies chest pain and Reports dyspnea on exertion Resp Reports cough, Reports dyspnea on exertion, Denies snoring and Denies wheezing GI Denies dysphagia Musc Reports abnormal gait, Reports myalgias, Reports numbness, Reports radiating pain into limb and Reports tingling Skin/Breast Denies rash Neuro Reports no additional complaints, Reports abnormal gait, Reports numbness and Reports tingling Endo Denies flushing David/Lymph Denies lymphadenopathy Aller/Immun Denies wheezing Physical Exam Vital Signs: Last Vital Signs Pulse 89 11/15/23 13:12 Pulse Ox 94 11/15/23 13:12 Oxygen Delivery Method Room Air 11/15/23 13:12 BMI result Body Mass Index 34.8 Const General: comfortable HEENT Head: Yes normocephalic Neck Neck: Yes supple Chest Chest palpation & inspection: normal inspection of the chest Resp Effort & Inspection: normal respiratory effort Auscultation: clear to auscultation bilaterally and no wheezes Cardio Rate: regular rate Rhythm: regular rhythm Heart sounds: S1 normal heart sound present and S2 normal heart sound present GI Palpation (GI): Soft to palpation Skin General skin exam: no rashes or lesions noted Extrem General: Yes no clubbing, cyanosis or edema Assessment & Plan Assessment & Plan (1) FERCHO on CPAP: Code(s): G47.33 - Obstructive sleep apnea (adult) (pediatric); Z99.89 - Dependence on other enabling machines and devices Category: Medical (2) Thymoma: Comment: w/surgery 11/07/22 @ [facility] Code(s): D49.89 - Neoplasm of unspecified behavior of other specified sites Category: Medical (3) Pulmonary nodules: Code(s): R91.8 - Other nonspecific abnormal finding of lung field Category: Medical (4) Dyspnea: Code(s): R06.00 - Dyspnea, unspecified Category: Medical Qualifiers: Dyspnea type: dyspnea on exertion Qualified Code(s): R06.09 - Other forms of dyspnea (5) COPD (chronic obstructive pulmonary disease): Code(s): J44.9 - Chronic obstructive pulmonary disease, unspecified Category: Medical Qualifiers: COPD type: emphysema Emphysema type: centrilobular Qualified Code(s): J43.2 - Centrilobular emphysema Plan Discontinue oxygen for now CXR continue Anoro daily SUNDAR as needed Adjusted APAP from local DME 8-18 CT chest to f/u nodules 07/2024 at [facility] F/U 6 months Orders: Orders XR chest 2V 11/15/23 R06.00 - Dyspnea, unspecified Medications: New umeclidinium-vilanterol 62.5-25 mcg/actuation (Anoro Ellipta) 1 inh inhalation DAILY 60 ea 11RF J44.89 - Other specified chronic obstructive pulmonary disease Coding Level of Care Code Est Pt Level 4 (76947) Diagnoses FERCHO on CPAP G47.33; Z99.89 Thymoma D49.89 Pulmonary nodules R91.8 Dyspnea on exertion R06.09 Dyspnea type: dyspnea on exertion Centrilobular emphysema J43.2 COPD type: emphysema Emphysema type: centrilobular Time Spent (min) 16
== END 2023-11-15 13:39 | disposition home or self-care (01) ==
PROVIDERS: PCP Physician Assistant Medical; Visit Provider Hospitalist
DX: G47.33 Obstructive sleep apnea (adult) (pediatric) (principal); Z99.89 Dependence on other enabling machines and devices; D49.89 Neoplasm of unspecified behavior of other specified sites; R91.8 Other nonspecific abnormal finding of lung field; R06.09 Other forms of dyspnea; J43.2 Centrilobular emphysema
CPT/HCPCS: 99214

== ENCOUNTER 2023-11-15 13:03 | Outpatient (REF) | payer MEDICARE, MEDICAID, SELFPAY ==
--- NOTE | ~2023-11-15 | XR_ITS ---
EXAMINATION: XR CHEST CLINICAL INFORMATION: Dyspnea, unspecified COMPARISON: Chest 04/19/2023 TECHNIQUE: 2 views of the chest were obtained. FINDINGS: Right basilar opacity is similar to the prior study and may represent a combination of pleural fluid/thickening, atelectasis and/or pneumonia. No interstitial pulmonary edema or pneumothorax. Again noted is coarsening of the interstitial markings. No interstitial pulmonary edema or pneumothorax. Heart size is normal. Calcification of the thoracic aorta is indicative of atherosclerotic disease. Mild dextroscoliosis of the thoracic spine is seen with multilevel degenerative changes. Kyphoplasty is seen in the upper lumbar spine. XR/XR chest 2V IMPRESSION: Right basilar opacity is similar to the prior study and may represent a combination of pleural fluid/thickening, atelectasis and/or pneumonia.
== END 2023-11-15 13:04 | disposition home or self-care (01) ==
LOC: HO.XRAY 13:03
PROVIDERS: PCP Nurse Practitioner; Visit Provider Hospitalist
DX: J44.9 Chronic obstructive pulmonary disease, unspecified (principal); R06.00 Dyspnea, unspecified
CPT/HCPCS: 71046; 99212

== ENCOUNTER 2024-01-24 12:40 | Outpatient (AMB) | payer MEDICARE, MEDICAID, SELFPAY ==
--- NOTE | 2024-01-24 13:07 | A.OFFVIS_ITS ---
Vital Signs 01/24/24 13:11 Height 5 ft Weight 170 lb BMI 33.2 Pulse 90 Pulse Source Pulse Oximeter Pulse Oximetry (%) 92 Oxygen Delivery Method Room Air Intake Visit Reasons: increased shortness of breath Nursery Rn Required: No Allergies levofloxacin [From Levaquin] Allergy (Severe, Verified 01/24/24 13:12) lost feeling in legs adhesive tape Adverse Reaction (Severe, Verified 01/24/24 13:12) Blister amoxicillin [From Augmentin] Adverse Reaction (Severe, Verified 01/24/24 13:12) Gastrointestinal Upset clavulanic acid [From Augmentin] Adverse Reaction (Severe, Verified 01/24/24 13:12) Gastrointestinal Upset hydromorphone [From Dilaudid] Adverse Reaction (Severe, Verified 01/24/24 13:12) Nausea oxycodone Adverse Reaction (Severe, Verified 01/24/24 13:12) Vomiting clarithromycin [From Biaxin] Adverse Reaction (Intermediate, Verified 01/24/24 13:12) Nausea and Vomiting clindamycin Adverse Reaction (Intermediate, Verified 01/24/24 13:12) Nausea and Vomiting doxycycline Adverse Reaction (Intermediate, Verified 01/24/24 13:12) Nausea and Vomiting Sulfa (Sulfonamide Antibiotics) Adverse Reaction (Intermediate, Verified 01/24/24 13:12) Nausea and Vomiting HPI Comments Details: The patient is a 63 y/o woman with COPD, former smoker and FERCHO on CPAP. Having muliple complaints including chest tightness and shortness of breath. Moderate in severity. Her SUNDAR inhaler does not help. She did undergo PFTs at [facility] with mild COPD, but significant small airways disease. She also underwent a CT chest demonstrating moderate emphysema, multiple pulmonary nodules and an anterior mediastinal mass. She was dx with a thymoma. Denies any weakness or myasthenia Gravis. She will be undergoing surgery at [facility] soon. Also, she has been on CPAP for many years, However, her CPAP is no longer working. She does have an elevated Nashville score 05/18. 04/19/2023 the patient is here for a pulmonary follow-up visit. Overall the patient has been doing well. She did undergo her thymoma surgery. After she did have some chest discomfort. But it has been slowly getting better. Her breathing also been better. She does have oxygen right now. We did take her off the oxygen and did a 6 minute walk test. She was able to maintain pulse ox within the normal ranges. Therefore, is reasonable for her to discontinue the oxygen for now. will plan to reassess her again when she returns for her next follow-up visit. In the meantime her respiratory status is stable. the patient is scheduled to undergo spine surgery. At this point clinically the patient is doing better. the patient does have increased risk for perioperative pulmonary complications which includes atelectasis, hypoxia, pneumonia. At this point she is medically optimized from a pulmonary standpoint it may go ahead and proceed with anesthesia and surgery. She should keep the oxygen at home however. It is likely that she will needed postoperatively. The patient also underwent a home sleep study. The patient does have moderate degree of sleep apnea. She also underwent a titration study and they did recommend APAP. Therefore, I will submit for a replacement CPAP since her current CPAP is no longer functional. She does have an elevated Nashville score of 11/24. The patient does have cardiovascular risk factors therefore restarting her CPAP is important. 08/08/2023 the patient is here for a pulmonary follow-up visit. Overall she is doing well. She stopped the Symbicort because she was getting thrush. She is just doing well on the rescue inhaler. Unfortunately she could not have her surgery and now scheduled for the next few weeks from now. Clinically the patient is doing much better from a respiratory status and she really is not using the oxygen at this time. Like we plan the last time we want to retest her for oxygen needs after her surgery just in case she needs oxygen in the postoperative period. I do believe that she will not need it. She did get a new CPAP. The CPAP has been affecting beneficial she does use it for more than 4 hours a night with 100% compliance. Her AHI though continues to be a little elevated at 5.7. We did increase her pressures from 6-16 2 8-18 because she does need a higher pressure. I believe that this will help. 11/16/2023 the patient is here for a pulmonary follow-up visit. Overall the patient had been doing okay. Still using the Symbicort 2 thrush. We did talk about Anoro which would be a good agent for her specially with the chest tightness and wheezing. This 1 will not have the inhaled steroid to minimize the risk of any or mucosal irritation. The patient is agreeable to this. In meantime she has been using the CPAP. The CPAP therapy has been affecting beneficial. The patient did have her surgery and she tolerated it well though she did have some leakage from the wound for some period of time. As far as imaging studies the patient is due for CT scan in 08/14/2024. The patient continue with current respiratory therapy and CPAP follow-up in the spring. 01/24/2024 the patient is complaining worsening shortness of breath. Patient states that inhalers not helping. Her shortness of breath is moderate severity. We did review her pulmonary function studies together. She does have extensive emphysema primarily affecting the upper lung zones. She does also have some atelectasis at the right base. Also some postoperative changes. She has not had any recent PFTs specially after her surgery. Will go ahead and request pulmonary function studies as she was not severity of her COPD. In the meantime will go ahead and maximize her respiratory therapy by giving her a course of prednisone to try to decrease the inflammation of the airways and also start her on Trelegy. The patient also underwent a 6 minute walk test. Appears that she briefly decreased down to 88% with activity. The patient does have extensive emphysema and also likely some restriction due to the atelectasis and post operative changes. Explained to her that this is causing her to have significant diffusion impairment. The patient benefits from oxygen supplementation with activity. We did ambulate her on 2 L pulse and she was able to maintain a pulse ox of 94% with activity. Therefore, will request a portable oxygen concentrator from her [employer] company to see if we can provide her with better portability outside of the home. She does use a walker and will be easier for her to carry with less risk of injury. The patient will undergo pulmonary function studies and she will return for further follow-up. [facility] Medical History (Updated 11/19/23 @ 20:55 by Donell Partida MD) Dyspnea GERD (gastroesophageal reflux disease) Depression Arthritis Fibromyalgia Pulmonary nodules Thymoma FERCHO on CPAP COPD (chronic obstructive pulmonary disease) Surgical History (Updated 08/31/23 @ 11:48 by DIGNA Mckinley) Hx of foot surgery History of esophagogastroduodenoscopy (EGD) H/O colonoscopy H/O thymectomy H/O parotidectomy H/O tubal ligation H/O sinus surgery Family History Mother COPD (chronic obstructive pulmonary disease) Father Prostate CA Social History Household Members: Spouse Are you a primary rn urgent care to a significant other at home: No Do you presently have visiting nurse or other home services: Yes (Meals on Wheels) Alcohol intake: never Patient Tobacco Use Status: Former Tobacco user Tobacco use type: Cigarette Cigarette Packs Per Day: 1 Years Smoked: 20 Review of Systems Const Reports daytime sleepiness, Reports difficulty sleeping, Denies fever(s) and Denies snoring Eyes Denies change in vision and Denies diplopia ENT Denies change in voice and Denies dysphagia Card Denies chest pain and Reports dyspnea on exertion Resp Reports cough, Reports dyspnea on exertion, Denies snoring and Denies wheezing GI Denies dysphagia Musc Reports abnormal gait, Reports myalgias, Reports numbness, Reports radiating pain into limb and Reports tingling Skin/Breast Denies rash Neuro Reports no additional complaints, Reports abnormal gait, Reports numbness and Reports tingling Endo Denies flushing David/Lymph Denies lymphadenopathy Aller/Immun Denies wheezing Physical Exam Vital Signs: Last Vital Signs Pulse 90 01/24/24 13:11 Pulse Ox 92 01/24/24 13:11 Oxygen Delivery Method Room Air 01/24/24 13:11 BMI result Body Mass Index 33.2 Const General: comfortable HEENT Head: Yes normocephalic Neck Neck: Yes supple Chest Chest palpation & inspection: normal inspection of the chest Resp Effort & Inspection: normal respiratory effort Auscultation: clear to auscultation bilaterally and no wheezes Cardio Rate: regular rate Rhythm: regular rhythm Heart sounds: S1 normal heart sound present and S2 normal heart sound present GI Palpation (GI): Soft to palpation Skin General skin exam: no rashes or lesions noted Extrem General: Yes no clubbing, cyanosis or edema Office Procedures 6 Minute Walk Time:: 13:40 SPO2 % at rest: 94 Pulse at rest: 97 SPO2 % during excercise: 88 Pulse during excercise: 114 SPO2 % after excercise: 94 Pulse after excercise: 112 Distance in yards walked: 150 Neeraj Score: 5 Performance Observations:: Patient walked on flat ground using a walker. Patient was able to maintain O2 saturation of 88% or greater and pulse rate of 114. placed on 2L/pulse with activity improving her pox 93% with activity. [id number] - 6 Minute Walk Assessment & Plan Assessment & Plan (1) COPD (chronic obstructive pulmonary disease): Code(s): J44.9 - Chronic obstructive pulmonary disease, unspecified Category: Medical Qualifiers: COPD type: emphysema Emphysema type: centrilobular Qualified Code(s): J43.2 - Centrilobular emphysema (2) FERCHO on CPAP: Code(s): G47.33 - Obstructive sleep apnea (adult) (pediatric); Z99.89 - Dependence on other enabling machines and devices Category: Medical (3) Thymoma: Comment: w/surgery 11/07/22 @ [facility] Code(s): D49.89 - Neoplasm of unspecified behavior of other specified sites Category: Medical (4) Pulmonary nodules: Code(s): R91.8 - Other nonspecific abnormal finding of lung field Category: Medical (5) Dyspnea: Code(s): R06.00 - Dyspnea, unspecified Category: Medical Qualifiers: Dyspnea type: dyspnea on exertion Qualified Code(s): R06.09 - Other forms of dyspnea Plan Oxygen revision: start 2l/pulse with activity, the patient benefits from aportable oxygen concentrator for better portability outside of the home stop Anoro daily start Trelegy SUNDAR as needed Adjusted APAP from local DME 8-18 overnight oximetry on CPAP RA CT chest to f/u nodules 07/2024 at [facility] PFTs F/U 2-3 months Orders: Orders AMB 6 minute walk Today J43.2 - Centrilobular emphysema Overnight Pulse Oximetry Today J43.2 - Centrilobular emphysema PFT pulmonary function test Today J43.2 - Centrilobular emphysema Medications: New prednisone PO daily; Take 2 tabs daily x 5 days, then 1 tablet daily x 5 days 10 days 15 tabs 0RF [id number]-[id number]-[id number] 200-62.5-25 mcg (Trelegy Ellipta) 1 inh inhalation DAILY 30 days 60 ea 12RF Coding Level of Care Code Est Pt Level 5 (89882) Complex EM visit Add On G2211 Diagnoses Centrilobular emphysema J43.2 COPD type: emphysema Emphysema type: centrilobular FERCHO on CPAP G47.33; Z99.89 Thymoma D49.89 Pulmonary nodules R91.8 Dyspnea on exertion R06.09 Dyspnea type: dyspnea on exertion CPT Codes Coding ([id number]) Time Spent (min) 35
[2024-01-24 13:11] VITALS: PULSE 90; O2SAT 92; BMI 33.2
[2024-01-24 21:34] VITALS: PULSE 97; O2SAT 94
== END 2024-01-24 14:03 | disposition home or self-care (01) ==
PROVIDERS: PCP Nurse Practitioner; Visit Provider Hospitalist
DX: J43.2 Centrilobular emphysema (principal); G47.33 Obstructive sleep apnea (adult) (pediatric); Z99.89 Dependence on other enabling machines and devices; D49.89 Neoplasm of unspecified behavior of other specified sites; R91.8 Other nonspecific abnormal finding of lung field; R06.09 Other forms of dyspnea
CPT/HCPCS: 94618; 99214; G2211

== ENCOUNTER → 2024-01-24 12:40 | Outpatient (BNVA) | payer MEDICARE, MEDICAID, SELFPAY | PROVIDERS: PCP Nurse Practitioner; Visit Provider Hospitalist | DX: J43.2 Centrilobular emphysema (principal); J98.11 Atelectasis; R06.09 Other forms of dyspnea; R91.8 Other nonspecific abnormal finding of lung field; G47.33 Obstructive sleep apnea (adult) (pediatric); D49.89 Neoplasm of unspecified behavior of other specified sites; Z99.89 Dependence on other enabling machines and devices | CPT/HCPCS: 94618; 99212 ==

== ENCOUNTER 2024-03-08 13:38 | Outpatient (REF) | payer MEDICARE, MEDICAID, SELFPAY ==
[2024-03-08 09:42] VITALS: PULSE 84; RESP 16; O2SAT 98
--- NOTE | 2024-03-08 12:30 | PFT_ITS ---
Flows: FEV1: 87 % of predicted at 1.82 L FVC: 103 % of predicted at 2.74 L FEV1/FVC: 66 % Bronchodilator response: Absent Volumes: Total lung capacity: 88 % of predicted at 3.87 L Residual volume: 69 % of predicted at 1.07 L Slow vital capacity: 98 % of predicted at 2.79 L Expiratory reserve volume: 161 % of predicted at 1.06 L Diffusion capacity: Mildly decreased Impression: Mild obstructive ventilatory defect with no bronchodilator response. Decreased diffusion capacity suggests emphysema. MTDD
== END 2024-03-08 13:39 | disposition home or self-care (01) ==
LOC: HO.RESP 13:38
PROVIDERS: PCP Nurse Practitioner; Visit Provider Hospitalist
DX: J43.2 Centrilobular emphysema (principal); J44.9 Chronic obstructive pulmonary disease, unspecified
CPT/HCPCS: 94010; 94640; 94727; 94729

== ENCOUNTER 2024-03-30 14:58 | Outpatient (REF) | payer MEDICARE, MEDICAID, SELFPAY ==
--- NOTE | ~2024-03-30 | MR_ITS ---
EXAMINATION: MR LUMBAR SPINE WITHOUT CONTRAST CLINICAL INFORMATION: Lumbar radiculopathy COMPARISON: X-ray lumbar spine on 11/03/2022 TECHNIQUE: MRI of the lumbar spine was obtained using routine sequences without contrast. FINDINGS: Evaluation of the intervertebral discs show: T12/L1: Intervertebral disc height is normal, with normal T2 signal. No focal disc herniation is seen. Bilateral T12/L1 neuroforamina are patent. Bilateral apophyseal joints are intact with normal alignment. L-1/L-2: Intervertebral disc height is mildly decreased, with mild loss of T2 signal. No focal disc herniation is seen. Bilateral L1-L2 neuroforamina are patent. Bilateral apophyseal joints are intact with normal alignment. There is mild chronic 15.8% compression fracture of L2, status post vertebroplasty with injection of methylmethacrylate. There is mild posterior superior L2 retropulsion into the spinal canal. L2/L3: Intervertebral disc height is normal, with normal T2 signal. No focal disc herniation is seen. Bilateral L2-L3 neuroforamina are patent. Bilateral apophyseal joints are intact with normal alignment. L3/L4: Intervertebral disc height is normal, with mild loss of T2 signal. No focal disc herniation is seen. Bilateral L3-L4 neuroforamina are patent. Bilateral apophyseal joints are intact with normal alignment. Bilateral apophyseal joints show loss of joint space, sclerosis, facet hypertrophy and osteophytosis. There is mild chronic 35.9% compression fracture of L4 without significant bone marrow edema. L4/L5: Intervertebral disc height is normal, with moderate loss of T2 signal. No focal disc herniation is seen. Bilateral L4-L5 neuroforamina are patent. Bilateral apophyseal joints are intact with normal alignment. Bilateral apophyseal joints show loss of joint space, sclerosis, facet hypertrophy and osteophytosis. L5/S1: There is anterior L5 on S1 displacement by 0.6 cm, with exposure of intervertebral disc. Bilateral L5 pars interarticularis bony defects are present. Bandlike T1 hyperintensity, STIR hypointensity is seen at superior S1 vertebral endplate, compatible with Modic type II degenerative vertebral endplate changes. Intervertebral disc height is normal, with mild loss of T2 signal. Posterior disc exposure and bilateral foraminal disc protrusion are seen. Bilateral L5-S1 neuroforamina are markedly stenosed. Bilateral apophyseal joints are intact with normal alignment. Bilateral apophyseal joints show loss of joint space, sclerosis, facet hypertrophy and osteophytosis. Conus medullaris is seen normally at L2 level. A left parasagittal pelvic cyst is seen measuring 2.5 cm in AP diameter, 3.3 cm in vertical height. Tiny T2 hyperintense cortical simple cysts are seen in the right upper and mid renal cortex, measuring up to 0.6 cm in diameter in the upper pole, for which no follow-up imaging is recommended.. MR/MR lumbar spine wo con IMPRESSION: 1. Mild chronic 15.8% compression fracture of L2, status post vertebroplasty with injection of methylmethacrylate. 2. Mild chronic 35.9% compression fracture of L4. 3. Grade 1 L5-S1 anterolisthesis, bilateral L5 spondylolysis, with exposure of intervertebral disc. Posterior disc exposure and bilateral foraminal disc protrusion at L5-S1 level, with marked bilateral L5-S1 neuroforaminal stenosis. 4. Mild L1-L2 and L4-L5 degenerative lumbar disc disease is present. 5. Left parasagittal pelvic cyst measuring 2.5 cm in AP diameter, 3.3 cm in vertical height, could represent ovarian cyst. Further evaluation with ultrasound examination of the pelvis is recommended. Electronically signed by: Nora Domínguez MD 04/23/2024 02:33 PM EDT
== END 2024-03-30 14:59 | disposition home or self-care (01) ==
LOC: HO.MRI 14:58
PROVIDERS: PCP Nurse Practitioner; Visit Provider Physician Assistant
DX: M54.16 Radiculopathy, lumbar region (principal)
CPT/HCPCS: 72148

== ENCOUNTER 2024-04-10 13:27 | Outpatient (AMB) | payer MEDICARE, MEDICAID, SELFPAY ==
--- NOTE | 2024-04-10 13:33 | MHC.OFFVIS ---
Vital Signs 04/10/24 13:37 Height 5 ft Weight 175 lb BMI 34.2 BP 124/68 Blood Pressure Location Lt brachial Position Sitting Pulse 88 Pulse Source Pulse Oximeter Pulse Oximetry (%) 95 Oxygen Delivery Method Room Air Intake Visit Reasons: COPD/PFT Follow Up Senior Contract Specialist Required: No Allergies levofloxacin [From Levaquin] Allergy (Severe, Verified 04/10/24 13:33) lost feeling in legs adhesive tape Adverse Reaction (Severe, Verified 04/10/24 13:33) Blister amoxicillin [From Augmentin] Adverse Reaction (Severe, Verified 04/10/24 13:33) Gastrointestinal Upset clavulanic acid [From Augmentin] Adverse Reaction (Severe, Verified 04/10/24 13:33) Gastrointestinal Upset hydromorphone [From Dilaudid] Adverse Reaction (Severe, Verified 04/10/24 13:33) Nausea oxycodone Adverse Reaction (Severe, Verified 04/10/24 13:33) Vomiting clarithromycin [From Biaxin] Adverse Reaction (Intermediate, Verified 04/10/24 13:33) Nausea and Vomiting clindamycin Adverse Reaction (Intermediate, Verified 04/10/24 13:33) Nausea and Vomiting doxycycline Adverse Reaction (Intermediate, Verified 04/10/24 13:33) Nausea and Vomiting Sulfa (Sulfonamide Antibiotics) Adverse Reaction (Intermediate, Verified 04/10/24 13:33) Nausea and Vomiting HPI Comments Details: The patient is a 63 y/o woman with COPD, former smoker and FERCHO on CPAP. Having muliple complaints including chest tightness and shortness of breath. Moderate in severity. Her SUNDAR inhaler does not help. She did undergo PFTs at [facility] with mild COPD, but significant small airways disease. She also underwent a CT chest demonstrating moderate emphysema, multiple pulmonary nodules and an anterior mediastinal mass. She was dx with a thymoma. Denies any weakness or myasthenia Gravis. She will be undergoing surgery at [facility] soon. Also, she has been on CPAP for many years, However, her CPAP is no longer working. She does have an elevated [place] score 05/18. 04/19/2023 the patient is here for a pulmonary follow-up visit. Overall the patient has been doing well. She did undergo her thymoma surgery. After she did have some chest discomfort. But it has been slowly getting better. Her breathing also been better. She does have oxygen right now. We did take her off the oxygen and did a 6 minute walk test. She was able to maintain pulse ox within the normal ranges. Therefore, is reasonable for her to discontinue the oxygen for now. will plan to reassess her again when she returns for her next follow-up visit. In the meantime her respiratory status is stable. the patient is scheduled to undergo spine surgery. At this point clinically the patient is doing better. the patient does have increased risk for perioperative pulmonary complications which includes atelectasis, hypoxia, pneumonia. At this point she is medically optimized from a pulmonary standpoint it may go ahead and proceed with anesthesia and surgery. She should keep the oxygen at home however. It is likely that she will needed postoperatively. The patient also underwent a home sleep study. The patient does have moderate degree of sleep apnea. She also underwent a titration study and they did recommend APAP. Therefore, I will submit for a replacement CPAP since her current CPAP is no longer functional. She does have an elevated [place] score of 11/24. The patient does have cardiovascular risk factors therefore restarting her CPAP is important. 08/08/2023 the patient is here for a pulmonary follow-up visit. Overall she is doing well. She stopped the Symbicort because she was getting thrush. She is just doing well on the rescue inhaler. Unfortunately she could not have her surgery and now scheduled for the next few weeks from now. Clinically the patient is doing much better from a respiratory status and she really is not using the oxygen at this time. Like we plan the last time we want to retest her for oxygen needs after her surgery just in case she needs oxygen in the postoperative period. I do believe that she will not need it. She did get a new CPAP. The CPAP has been affecting beneficial she does use it for more than 4 hours a night with 100% compliance. Her AHI though continues to be a little elevated at 5.7. We did increase her pressures from 6-16 2 8-18 because she does need a higher pressure. I believe that this will help. 11/16/2023 the patient is here for a pulmonary follow-up visit. Overall the patient had been doing okay. Still using the Symbicort 2 thrush. We did talk about Anoro which would be a good agent for her specially with the chest tightness and wheezing. This 1 will not have the inhaled steroid to minimize the risk of any or mucosal irritation. The patient is agreeable to this. In meantime she has been using the CPAP. The CPAP therapy has been affecting beneficial. The patient did have her surgery and she tolerated it well though she did have some leakage from the wound for some period of time. As far as imaging studies the patient is due for CT scan in 08/14/2024. The patient continue with current respiratory therapy and CPAP follow-up in the spring. 01/24/2024 the patient is complaining worsening shortness of breath. Patient states that inhalers not helping. Her shortness of breath is moderate severity. We did review her pulmonary function studies together. She does have extensive emphysema primarily affecting the upper lung zones. She does also have some atelectasis at the right base. Also some postoperative changes. She has not had any recent PFTs specially after her surgery. Will go ahead and request pulmonary function studies as she was not severity of her COPD. In the meantime will go ahead and maximize her respiratory therapy by giving her a course of prednisone to try to decrease the inflammation of the airways and also start her on Trelegy. The patient also underwent a 6 minute walk test. Appears that she briefly decreased down to 88% with activity. The patient does have extensive emphysema and also likely some restriction due to the atelectasis and postoperative changes. Explained to her that this is causing her to have significant diffusion impairment. The patient benefits from oxygen supplementation with activity. We did ambulate her on 2 L pulse and she was able to maintain a pulse ox of 94% with activity. Therefore, will request a portable oxygen concentrator from her [employer] company to see if we can provide her with better portability outside of the home. She does use a walker and will be easier for her to carry with less risk of injury. The patient will undergo pulmonary function studies and she will return for further follow-up. 04/10/2024 the patient is here for a pulmonary follow-up visit. Overall she is doing okay. Her breathing is better. The patient has have significant back pain though she has to follow-up with her surgeon. From a breathing standpoint the patient did have pulmonary function studies. She does have COPD. I did recommend pulmonary rehabilitation and she is open to this. The patient also is getting oxygen delivered. She will be getting a portable oxygen concentrator to provide better portability touch with significant back pain and her walker use. Hopefully we can get her to pulmonary rehabilitation and improve her respiratory capacity. In 6 months will reassess to see if she still needs the oxygen. We did do an overnight oximetry at nighttime. The patient does not appear to need the oxygen while using her CPAP. The CPAP therapy continues to be affecting beneficial and she does use it for more than 4 hours a night. [facility] Medical History (Updated 11/19/23 @ 20:55 by Donell Partida MD) Dyspnea GERD (gastroesophageal reflux disease) Depression Arthritis Fibromyalgia Pulmonary nodules Thymoma FERCHO on CPAP COPD (chronic obstructive pulmonary disease) Surgical History (Updated 08/31/23 @ 11:48 by DIGNA Mckinley) Hx of foot surgery History of esophagogastroduodenoscopy (EGD) H/O colonoscopy H/O thymectomy H/O parotidectomy H/O tubal ligation H/O sinus surgery Family History Mother COPD (chronic obstructive pulmonary disease) Father Prostate CA Social History Household Members: Spouse Are you a primary care clinician to a significant other at home: No Do you presently have visiting nurse or other home services: Yes (Meals on Wheels) Alcohol intake: never Patient Tobacco Use Status: Former Tobacco user Tobacco use type: Cigarette Cigarette Packs Per Day: 1 Years Smoked: 20 Review of Systems Const Reports daytime sleepiness, Reports difficulty sleeping, Denies fever(s) and Denies snoring Eyes Denies change in vision and Denies diplopia ENT Denies change in voice and Denies dysphagia Card Denies chest pain and Reports dyspnea on exertion Resp Reports cough, Reports dyspnea on exertion, Denies snoring and Denies wheezing GI Denies dysphagia Musc Reports abnormal gait, Reports back pain, Reports myalgias, Reports numbness, Reports radiating pain into limb and Reports tingling Skin/Breast Denies rash Neuro Reports no additional complaints, Reports abnormal gait, Reports numbness and Reports tingling Endo Denies flushing David/Lymph Denies lymphadenopathy Aller/Immun Denies wheezing Physical Exam Vital Signs: Last Vital Signs Pulse 88 04/10/24 13:37 BP 124/68 04/10/24 13:37 Pulse Ox 95 04/10/24 13:37 Oxygen Delivery Method Room Air 04/10/24 13:37 BMI result Body Mass Index 34.2 Const General: comfortable HEENT Head: Yes normocephalic Neck Neck: Yes supple Chest Chest palpation & inspection: normal inspection of the chest Resp Effort & Inspection: normal respiratory effort Auscultation: clear to auscultation bilaterally and no wheezes Cardio Rate: regular rate Rhythm: regular rhythm Heart sounds: S1 normal heart sound present and S2 normal heart sound present GI Palpation (GI): Soft to palpation Skin General skin exam: no rashes or lesions noted Extrem General: Yes no clubbing, cyanosis or edema Assessment & Plan Assessment & Plan (1) COPD (chronic obstructive pulmonary disease): Code(s): J44.9 - Chronic obstructive pulmonary disease, unspecified Category: Medical Qualifiers: COPD type: emphysema Emphysema type: centrilobular Qualified Code(s): J43.2 - Centrilobular emphysema (2) FERCHO on CPAP: Code(s): G47.33 - Obstructive sleep apnea (adult) (pediatric); Z99.89 - Dependence on other enabling machines and devices Category: Medical (3) Thymoma: Comment: w/surgery 11/07/22 @ [facility] Code(s): D49.89 - Neoplasm of unspecified behavior of other specified sites Category: Medical (4) Pulmonary nodules: Code(s): R91.8 - Other nonspecific abnormal finding of lung field Category: Medical (5) Dyspnea: Code(s): R06.00 - Dyspnea, unspecified Category: Medical Qualifiers: Dyspnea type: dyspnea on exertion Qualified Code(s): R06.09 - Other forms of dyspnea Plan Oxygen revision: start 2l/pulse with activity, the patient benefits from aportable oxygen concentrator for better portability outside of the home conitnue Trelegy SUNDAR as needed APAP from local DME 8-18 overnight oximetry on CPAP RA was ok CT chest to f/u nodules 07/2024 at [facility] start pulmonary rehab F/U 4-6 months Orders: Orders Pulmonary Rehab Today R06.09 - Other forms of dyspnea Coding Level of Care Code Est Pt Level 4 (46325) Diagnoses Centrilobular emphysema J43.2 COPD type: emphysema Emphysema type: centrilobular FERCHO on CPAP G47.33; Z99.89 Thymoma D49.89 Pulmonary nodules R91.8 Dyspnea on exertion R06.09 Dyspnea type: dyspnea on exertion Time Spent (min) 17
[2024-04-10 13:37] VITALS: BP 124/68; PULSE 88; O2SAT 95; BMI 34.2
== END 2024-04-10 13:57 | disposition home or self-care (01) ==
PROVIDERS: PCP Nurse Practitioner; Visit Provider Hospitalist
DX: J43.2 Centrilobular emphysema (principal); G47.33 Obstructive sleep apnea (adult) (pediatric); Z99.89 Dependence on other enabling machines and devices; D49.89 Neoplasm of unspecified behavior of other specified sites; R91.8 Other nonspecific abnormal finding of lung field; R06.09 Other forms of dyspnea
CPT/HCPCS: 99214

== ENCOUNTER → 2024-04-10 13:27 | Outpatient (BNVA) | payer MEDICARE, MEDICAID, SELFPAY | PROVIDERS: PCP Nurse Practitioner; Visit Provider Hospitalist | DX: J43.2 Centrilobular emphysema (principal); G47.33 Obstructive sleep apnea (adult) (pediatric); D49.89 Neoplasm of unspecified behavior of other specified sites; R91.8 Other nonspecific abnormal finding of lung field; R06.09 Other forms of dyspnea; Z99.89 Dependence on other enabling machines and devices | CPT/HCPCS: 99212 ==

== ENCOUNTER 2024-05-30 11:08 | Outpatient (AMB) | payer MEDICARE, MEDICAID, SELFPAY ==
--- NOTE | 2024-05-30 11:09 | A.OFFVIS_ITS ---
Vital Signs 05/30/24 11:14 Height 5 ft Weight 179 lb 4 oz BMI 35.0 BP 116/62 Blood Pressure Location Rt brachial Position Sitting Respiration 16 Pulse 107 H Pulse Source Pulse Oximeter Pulse Oximetry (%) 97 Oxygen Delivery Method Room Air Intake Visit Reasons: Other Specified Post Procedural States Intake Note: Patient presents for other specified post procedural states. Allergies levofloxacin [From Levaquin] Allergy (Severe, Verified 05/30/24 11:13) lost feeling in legs adhesive tape Adverse Reaction (Severe, Verified 05/30/24 11:13) Blister amoxicillin [From Augmentin] Adverse Reaction (Severe, Verified 05/30/24 11:13) Gastrointestinal Upset clavulanic acid [From Augmentin] Adverse Reaction (Severe, Verified 05/30/24 11:13) Gastrointestinal Upset hydromorphone [From Dilaudid] Adverse Reaction (Severe, Verified 05/30/24 11:13) Nausea oxycodone Adverse Reaction (Severe, Verified 05/30/24 11:13) Vomiting clarithromycin [From Biaxin] Adverse Reaction (Intermediate, Verified 05/30/24 11:13) Nausea and Vomiting clindamycin Adverse Reaction (Intermediate, Verified 05/30/24 11:13) Nausea and Vomiting doxycycline Adverse Reaction (Intermediate, Verified 05/30/24 11:13) Nausea and Vomiting Sulfa (Sulfonamide Antibiotics) Adverse Reaction (Intermediate, Verified 05/30/24 11:13) Nausea and Vomiting HPI HPI Other Specified Post Procedural States: Details: 63-year-old female who presents today to the office for an evaluation of pain status post procedure. She reports back pain that radiates down to her ankle. She currently rates her pain at 5/10 intensity while sitting down. The pain has been worsening since the right-sided L5 foraminotomy on 08/23/2023. She states that her pain alleviates with sitting down on the comfortable recliner. Walking and standing aggravate the pain. She has antalgic gait and has been walking using walker/cane. She has a history of fibromyalgia. She has had severe neuralgia for over a year. She had kyphoplasty in the past and still has pain around the surgical site. She had injections prior to the last surgery for the pain. [facility] Medical History (Updated 06/03/24 @ 15:46 by Prince Corrigan MD) Dyspnea GERD (gastroesophageal reflux disease) Depression Arthritis Fibromyalgia Pulmonary nodules Thymoma FERCHO on CPAP COPD (chronic obstructive pulmonary disease) Surgical History (Updated 08/31/23 @ 11:48 by DIGNA Mckinley) Hx of foot surgery History of esophagogastroduodenoscopy (EGD) H/O colonoscopy H/O thymectomy H/O parotidectomy H/O tubal ligation H/O sinus surgery Family History Mother COPD (chronic obstructive pulmonary disease) Father Prostate CA Social History Household Members: Spouse Are you a primary personal care home administrator to a significant other at home: No Do you presently have visiting nurse or other home services: Yes (Meals on Wheels) Alcohol intake: never Patient Tobacco Use Status: Former Tobacco user Tobacco use type: Cigarette Cigarette Packs Per Day: 1 Years Smoked: 20 Review of Systems Const All systems reviewed & are unremarkable except as noted in HPI and below Physical Exam Vital Signs: Last Vital Signs Pulse 107 H 05/30/24 11:14 Resp 16 05/30/24 11:14 BP 116/62 05/30/24 11:14 Pulse Ox 97 05/30/24 11:14 Oxygen Delivery Method Room Air 05/30/24 11:14 BMI result Body Mass Index 35.0 General: Appears afebrile. Alert and oriented. Mood and affect appropriate. Follows and participates in conversation appropriately. Respiratory effort is unlabored. Able to transition from sit to stand unassisted. Ambulates with bilaterally normal heel strike and toe off. Results Reviewed Results Reviewed: No imaging is available for review. Assessment & Plan Assessment & Plan (1) Spondylolisthesis, lumbar region: Code(s): M43.16 - Spondylolisthesis, lumbar region Category: Medical (2) Post laminectomy syndrome: Code(s): M96.1 - Postlaminectomy syndrome, not elsewhere classified Category: Medical Plan Discussed spinal cord stimulator as a possible treatment option. We discussed starting with the one-week trial of a spinal cord stimulator device placement; if the pain is significantly improved, we will proceed with placement of the spinal cord stimulator device. Will place a referral for psychology clearance. Once we have received psychology clearance, we will plan for trial of spinal cord stimulator device. The patient will receive a call from [facility] for the psychology assessment. A device brochure was provided to the patient today in the office. Scribed for Dr. Corrigan by Hipolito Dumas, medical collector, on 05/30/2024. I, Dr. Corrigan, have personally reviewed and agree with the information entered by the scribe. Coding Level of Care Code Est Pt Level 3 (95549) Diagnoses Spondylolisthesis, lumbar region M43.16 Post laminectomy syndrome M96.1
[2024-05-30 11:14] VITALS: BP 116/62; PULSE 107; RESP 16; O2SAT 97; BMI 35.0
--- OUTSIDE RECORDS SUMMARY | 2024-06-04 07:49 | XMS_ITS | Data Portability ---
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 Pt concerned that the area is infected. Denies fevers, leg swelling. Vital Signs: 120/66, T 98.6, RR 18, 99% on 2 L, Initial HR 100, repeat 86 Exam: Skin: Skin: 2 cm x 2 cm abrasion scabbed with slough surrounded by 16 cm of erythema in L, 8 cm in W. Area is tender to touch, warm. DDx considered, with rationale: Cellulitis- highly likely based off appearance, will cover for MRSA Osteomyelitis- not likely without severe pain DVT- not likely without unilateral leg swelling sirs/ sepsis- pt is non toxic with reassuring vitals Proper Personal Protective Equipment (PPE), including gloves, eye protection and masks were donned and doffed appropriately and all equipment cleaned using approved technique with germicidal disposable wipes prior to and after care of this patient according to [facility]'s infection prevention protocols. [email or web address] Not available 01/02/2023 22:00:13 01/12/2023 01/12/2023 Time On Scene with Patient: 00:28:12 Brief Overview:62 y/o female c/o infection on her RLE s/p dog scratch. she was seen/ treated by with a 7 day course of doxy. she states the redness looks a lot better wound has closed up. mild tenderness, no drainage. no warmth. she denies cp, sob, fever. she wanted to have her leg looked at to be sure the infection had cleared. Vital Signs: BP 132/78, HR 92, RR 18, T 98.2, O2 98% 2L. Exam: pleasant 62 y/o female well appearing, alert NAD sitting in her recliner. lugs: CTAB no wheezes rales or rhonchi. heart: RRR no murmur rubs or gallops. no peripheral edema. no calf tenderness, negative homans. RLE: healing wound now with scab formation, faint erythema localized around the wound but no warmth, minimal tenderness on palpation, no drainage. erythema that was distal to the wound is almost resolved. no warmth. DDx considered, with rationale: Osteomyelitis: considered but she is afebrile, and no bony tederness on exam. Necrotizing fasciitis: considered but she is afebrile, no drainage, no pain out of proportion, no numbness. DVT: considered but no unilateral leg edema, no calf tenderness. Results/ work up: n/a Proper Personal Protective Equipment (PPE), including gloves, eye protection and masks were donned and doffed appropriately and all equipment cleaned using approved technique with germicidal disposable wipes prior to and after care of this patient according to [facility]'s infection prevention protocols. 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 Has tried topical steroids that she has at home and has noticed this has made rash worse. not new to provider or dh. Vital Signs: 116/70, Hr 92, T 97.9, RR 20 O2 97% on 1 L Exam: Erythematous rash to intertriginous region of lower skin folds extending to hips, and groin, satellite lesions DDx considered, with rationale: intertrigo- evident on exam Cellulitis- not likely without pain, clear borders, infectious source Psoriasis- unlikely No emergent indications for escalation based off vital sign review and exam. Handwritten discharge papers completed and provided to patient. All questions answered. Time On Scene with Patient: 00:19:02 [email or web address] Not available 02/08/2023 19:24:30 Plan of Treatment Reminders Order Date Submit Date Provider Last Modified By Organization Details Last Modified Time Details Appointments None recorded. Lab None recorded. Referral None recorded. Procedures None recorded. Surgeries None recorded. Imaging None recorded. Medication Orders doxycycline hyclate 100 mg capsule 2022 023 [email or web address] [id number], [address] [place], [address], 3 14:59:03 doxycycline hyclate 100 mg tablet 2022 023 [email or web address] [id number], [address] [place], [address], 3 14:59:08 ketoconazol e 2 % topical cream 2022 023 COLLIN [id number], [address] [place], [address], 3 19:23:18 Patient TargetsNo targets recorded. Patient Instructions Encounter Date Encounter Id Patient Instructions Last Modified By Organization Details Last Modified Time 01/02/2023 [id number] Thank you for yo ur [facility] today. You were seen today for treatment of a wound. Please seek immediate medical attention if you develop increased pain, redness, or swelling of your wound. Also, you should be evaluated if the wound becomes warm to the touch, or if there is a cloudy, yellow-brown discharge from the wound. There is always the possibility of a hidden tendon injury or foreign object in the wound. If you have problems moving your arm or leg, or if you see red streaks up the arm or leg, seek immediate medical attention. If you develop any new or worsening symptoms and need after hours care, please go to nearest ER and/or call 911. If you have additional concerns or develop a change in your condition between 8am-10pm, please call [facility] at [phone] to help navigate your care. [email or web address] Not available 01/02/2023 17:10:35 01/12/2023 [id number] Thank you for yo ur visit with [facility] today. You were seen today for treatment of a wound. Please seek immediate medical attention if you develop increased pain, redness, or swelling of your wound. Also, you should be evaluated if the wound becomes warm to the touch, or if there is a cloudy, yellow-brown discharge from the wound. There is always the possibility of a hidden tendon injury or foreign object in the wound. If you have problems moving your arm or leg, or if you see red streaks up the arm or leg, seek immediate medical attention. If you develop any new or worsening symptoms and need after hours care, please go to nearest ER and/or call 911. If you have additional concerns or develop a change in your condition between 8am-10pm, please call [facility] at [phone] to help navigate your care. [email or web address] Not available 01/12/2023 14:58:29 02/08/2023 [id number] Thank you for yo ur visit with [facility] today. We cannot always find the exact cause of your symptoms during your initial visit. Please follow up with your primary care provider or specialist to be rechecked or seek medical attention if your symptoms do not go away or get worse. If you develop any new or worsening symptoms and need after hours care, please go to nearest ER and/or call 911. If you have additional concerns or develop a change in your condition between 8am-10pm, please call [facility] at [phone] to help navigate your care. Please seek care or call your primary provider if the rash: 1. Worsens 2. Lasts longer than one week 3. Shows signs of local infection (redness, oozing, or swelling) 4. Occurs together with fever, chills, swollen glands, or other symptoms of infection 5. Looks dark purple or spotted 6. Occurs together with symptoms that suggest autoimmune disorder (recurring fever, malaise, fatigue, unexplained weight loss, or joint swelling) If you have additional concerns or develop a change in your condition between 8am-10pm, please call [facility] at [phone] to help navigate your care. [email or web address] Not available 02/08/2023 14:59:41 Reason for Referral None Reported. Procedures Surgical History Date Name Laterality Status Provider Name and Address Organization Details Recorded Time ligation of bilateral fallopian tubes completed Gretta Al NP [address], [place], [address], [place] [facility] 01/02/2023 17:05:51 excision of thymus completed Gretta Al NP [address], [place], [address], [place] [facility] 01/02/2023 17:06:13 Imaging Results None recorded. Procedure Notes None recorded. Medical Equipment None Reported. Allergies Allergen ID Allergen Name Allergen Category Reaction Reaction Severity Criticality Documentation Date Start Date Code Code System Note Provider Name and Address Organization Details Recorded Time 605875 Augmentin medicatio n Not available Not available Not available 01/02/2023 40406 2 RxNorm Gretta Al NP [address], [place], [address], [place] [facility] 3 17:03:40 [id number] Levaquin medicatio n Not available Not available Not available 01/02/2023 79422 2 RxNorm Gretta Al NP [address], [place], [address], [place] [facility] 3 17:03:52 039762 acetamino phen / oxycodone medicatio n Not available Not available Not available 01/02/2023 89119 3 RxNorm Gretta Al NP [address], [place], [address], [place] [facility] 3 17:04:07 [id number] oxycodone medicatio n Not available Not available Not available 01/02/2023 7804 RxNodavion Al NP [address], [place], [address], [place] [facility] 3 17:04:13 Medications Name Sig Start Date Stop Date Status Note LastModified by Organization Details LastModified Time celecoxib 200 mg capsule TAKE 1 CAPSULE BY MOUTH TWICE A DAY FOR 7 DAYS active Not Available Not Available No t Available clotrimazol e 10 mg jace DISSOLVE 1 TABLET SLOWLY IN THE MOUTH 5 TIMES DAILY FOR 14 DAYS 01/02 completed Not Available Not Available Not Available prednisone 10 mg tablet PLEASE SEE ATTACHED FOR DETAILED DIRECTION S 01/02 completed Not Available Not Available Not Available doxycycline hyclate 100 mg capsule 100mg PO Administe red on scene. Time administe red: 530 pm 02/08 completed Not Available Not Available Not Available tizanidine 2 mg tablet TAKE 1 TABLET BY MOUTH THREE TIMES A DAY 01/02 completed Not Available Not Available Not Available clindamycin HCl 300 mg capsule TAKE 2 CAPSULES BY MOUTH ONCE 01/02 completed Not Available Not Available Not Available trazodone 50 mg tablet TAKE 2 TABLETS BY MOUTH EVERY DAY FOR 90 DAYS active Not Available Not Available No t Available tizanidine 4 mg tablet TAKE 1 TABLET BY MOUTH TWICE A DAY 01/02 completed Not Available Not Available Not Available prednisone 20 mg tablet TAKE 1 TABLET DAILY FOR 2 DAYS NEEDED FOR ITCHING 01/02 completed Not Available Not Available Not Available omeprazole 40 mg capsule,del ayed release TAKE 1 CAPSULE BY MOUTH TWICE A DAY active Not Available Not Available No t Available tramadol 50 mg tablet TAKE 1 TABLET BY MOUTH UP TO 3 TIMES DAILY NEEDED 01/02 completed Not Available Not Available Not Available meloxicam 7.5 mg tablet TAKE 1 TABLET BY MOUTH TWICE A DAY AFTER MEALS active Not Available Not Available No t Available modafinil 200 mg tablet TAKE 1 TABLET BY MOUTH TWICE A DAY active Not Available Not Available No t Available dexamethaso ne 1 mg tablet TAKE 1 TABLET BY MOUTH AT 11PM 02/08 completed Not Available Not Available Not Available lorazepam 2 mg tablet TAKE 1 TABLET BY MOUTH DIRECTED 1 HOUR PRIOR TO INJECTION 01/02 completed Not Available Not Available Not Available diazepam 2 mg tablet TAKE 1-2 TABLETS BY MOUTH EVERY 6 TO 8 HOURS NEEDED FOR MUSCLE SPASM 01/02 completed Not Available Not Available Not Available baclofen 10 mg tablet TAKE 1 TABLET BY MOUTH THREE TIMES A DAY NEEDED active Not Available Not Available No t Available ibuprofen 400 mg tablet TAKE 1 TABLET BY MOUTH EVERY 8 HOURS 01/02 completed Not Available Not Available Not Available hydroxyzine HCl 25 mg tablet TAKE 1 TABLET (25 MG) BY MOUTH 3 TIMES A DAY NEEDED FOR ITCHING active Not Available Not Available No t Available lorazepam 1 mg tablet TAKE 1 TABLET BY MOUTH EVERY DAY AT BEDTIME NEEDED active Not Available Not Available No t Available methylpredn isolone 4 mg tablets in a dose pack TAKE BY MOUTH DIRECTED PER PACKAGE INSTRUCTI ONS 02/08 completed Not Available Not Available Not Available albuterol sulfate HFA 90 mcg/actuati on aerosol inhaler INHALE 1 PUFF BY MOUTH EVERY 4-6 HOURS NEEDED active Not Available Not Available No t Available ketoconazol e 2 % topical cream APPLY TO AFFECTED AREA EVERY DAY active Not Available Not Available No t Available hydromorpho ne 4 mg tablet TAKE 1/2 TABLET BY MOUTH EVERY 3 HOURS NEEDED FOR MODERATE PAIN 01/02 completed Not Available Not Available Not Available morphine 15 mg immediate release tablet TAKE 1 TABLET BY MOUTH EVERY 6 HOURS NEEDED FOR PAIN 01/02 completed Not Available Not Available Not Available lisinopril 2.5 mg tablet TAKE 1 TABLET BY MOUTH TWICE A DAY active Not Available Not Available No t Available doxycycline hyclate 100 mg tablet TAKE 1 TABLET BY MOUTH TWICE A DAY FOR 7 DAYS 02/08 completed Not Available Not Available Not Available diazepam 5 mg tablet TAKE 1 TABLET BY MOUTH TWICE A DAY NEEDED FOR SPASMS 01/02 completed Not Available Not Available Not Available oxycodone 5 mg tablet TAKE 1 TABLET BY MOUTH EVERY 6 HOURS FOR SEVERE TO MODERATE PAIN 01/02 completed Not Available Not Available Not Available escitalopra m 10 mg tablet TAKE 1 TABLET BY MOUTH EVERY DAY active Not Available Not Available No t Available cyclobenzap rine 5 mg tablet TAKE 1 TABLET BY MOUTH TWICE A DAY NEEDED 01/02 completed Not Available Not Available Not Available baclofen active Not Available Not Avai lable Not Available Symbicort 160 mcg-4.5 mcg/actuati on HFA aerosol inhaler INHALE 2 PUFF INHALED 2 TIMES A DAY FOR 30 DAYS active Not Available Not Available No t Available Savella 100 mg tablet TAKE 1 TABLET BY MOUTH TWICE A DAY active Not Available Not Available No t Available Gralise 600 mg tablet,exte nded release TAKE 2 TABLETS BY MOUTH EVERY DAY FOR 90 DAYS active Not Available Not Available No t Available Michelle Flores [facility] spacer DIRECTED active Not Available Not Available No t Available Tymlos 80 mcg/dose (3,120 mcg/1.56 mL) subcutaneou s pen injector active Not Available Not Available Not Available Vitals Date Recorded Oxygen saturation Oxygen saturation in Arterial blood by Pulse oximetry Inhaled oxygen flow rate Respiratory rate Heart rate Body temperature Systolic blood pressure Diastolic blood pressure Provider Name and Address Organization Details Last Updated DateTime 3 99 % 99 % 2 L/min 18 /min 100 /min 98.6 [degF] 120 mm[Hg] 66 mm[Hg] Not Available [facility] 3 17:09:27 Date Recorded Heart rate Respiratory rate Body temperature Oxygen saturation Oxygen saturation in Arterial blood by Pulse oximetry Inhaled oxygen flow rate Systolic blood pressure Diastolic blood pressure Provider Name and Address Organization Details Last Updated DateTime 3 92 /min 18 /min 98.2 [degF] 98 % 98 % 2 L/min 132 mm[Hg] 78 mm[Hg] Not Available [facility] 3 14:50:05 Date Recorded Heart rate Oxygen saturation Oxygen saturation in Arterial blood by Pulse oximetry Inhaled oxygen flow rate Body temperature Respiratory rate Systolic blood pressure Diastolic blood pressure Provider Name and Address Organization Details Last Updated DateTime 3 92 /min 97 % 97 % 1 L/min 97.9 [degF] 20 /min 116 mm[Hg] 70 mm[Hg] Not Available [facility] 3 15:02:11 Social History Question Answer Notes LastModified by Organizat ion Details LastModified Time Tobacco Smoking Status Former Smoker Gretta Al NP [address], [place], [address], [place] [facility] 01/02/2023 17:07:37 Do You Have An Advance Directive? Yes [email or web address] Information not available 01/02/2023 What Is Your Level Of Alcohol Consumption? None [email or web address] Information not available 01/02/2023 What Is Your Code Status? Full Code [email or web address] Information not available 01/02/2023 Does This Patient Have A PCP? Yes [email or web address] Information not available 01/02/2023 Has The Patient Seen Their PCP In The Past 6 Months? Yes [email or web address] Information not available 01/02/2023 Do You Use Any Illicit Or Recreational Drugs? No [email or web address] Information not available 01/02/2023 Sex: Unknown Functional Status None recorded. Mental Status None recorded. Family History Relationship Description Onset Age of this Age Resolved Age Notes LastModified by Organization Details LastModified Time Maternal Grandmother Malignant neoplastic disease [email or web address] Not available 2022 17:06:52 Maternal Grandfather Malignant neoplastic disease [email or web address] Not available 2022 17:06:52 Father Malignant neoplastic disease Not available 2022 17:07:05 Brother Malignant neoplastic disease [email or web address] Not available 2022 17:07:08 Mother Asthma [email or web address] Not available 0 01/02/2023 17:07:21 Medical History Condition Response Hypothyroidism Y COPD Y Asthma Y Hypertension Y Osteoporosis Y Gynecological HistoryNo gynecological history recorded. Obstetrics History GPAL:G 0 P 0 0 0 0 Past Encounters Encounter ID Performer Location Encounter Start Date Encounter Closed Date Diagnosis/Indication Diagnosis SNOMED-CT Code Diagnosis ICD10 Code [id number] Gretta Al NP [facility] [address] [facility] [place] [address] 01/02/2023 16:55:09 01/11/2023 09:02:01 Cellulitis 290378211 L03.90 [id number] Gretta Al NP [facility] [address] [facility] [place] [address] 01/02/2023 17:04:32 01/03/2023 15:58:31 [id number] DIGNA Aiken [facility] [address] [place] [address] 01/12/2023 14:46:38 01/14/2023 18:22:59 Cellulitis 830455870 L03.90 Chronic ob structive pulmonary disease 30349771 J44.9 [id number] Gretta Al NP [facility] [address] [place] [address] 02/08/2023 14:36:36 02/09/2023 15:15:30 Intertrigo of abdominal skin fold 033154602 L30.4 Health Concerns Section Related Observation LastModified by Organization Detai ls LastModified Time None Recorded Concern Status LastModified by Organization Details LastModified Time None Recorded Advance Directives Directive Y: Payers Encounter Date Sequence Insurance Name Policy Number Policy Wick Covered Member ID Wick Member ID Guarantor Name 01/02/2023 1 [place] [employer] Gladys D Jasso [id number] Gladys Jasso 01/02/2023 2 [place] Gladys Jasso [id number] Gladys Jasso 01/02/2023 1 [place] [employer] [employer] Gladys D Jasso [id number] Gladys Jasso 01/02/2023 2 [place] Gladys Jasso [id number] Gladys Jasso 01/12/2023 1 [place] [employer] Gladys D Jasso [id number] Gladys Jasso 01/12/2023 2 [place] Gladys Jasso [id number] Gladys Jasso 02/08/2023 1 [place] [employer] Gladys D Jasso [id number] Gladys Jasso 02/08/2023 2 [place] Gladys Jasso [id number] Gladys Jasso Notes Date Note Type Note Provider Name and Address Organization Details Recorded Time 01/02/2023 text/html Pt states her [facility] mor puppy scratched her right anterior darden 5 days ago. Initially area was scabbed over and red, within 24 hours developed scab, pain, redness, warmth and some scant drainage. Started applying bacitracin with has not been helping significantly. Denies streaking, fevers, swelling to BLE. Gretta Al NP [address] [place], [address], [place] [facility] 01/02/2023 22:03:48 01/02/2023 text/html duplicate Gretta Al NP [address] [place], [address], [place] [facility] 01/02/2023 21:48:08 01/12/2023 text/html 62 y/o female known to DH new to provider with hx of Asthma, COPD oxygen dependent, HTN, hypothyroidism, osteoporosis, fibromyalgia, sciatica, thymus glad cancer. pt was seen by on 01/02 for a dog scratch/ cellulitis. she was tx with 7 day course of doxy and leg does look better but just wanted to have someone check it to be sure. she denies cp, sob, fever, nausea, vomiting, dizziness, weakness. she has been applying otc bacitracin to affected area and cleaning with soap and water. she states lesion is slightly tender to touch but no drainage. she denies any streaking erythema. DIGNA Aiken [address], [place], [address], [place] [facility] 01/12/2023 16:59:32 02/08/2023 text/html Pt states rash to lower stomach and groin area after being hot/ sweaty. Rash started 1 week ago. Rash is itchy not painful. More itchy when applying cream, has tried triamcinolone. Reports taht she has been unwell for awhile and due to being overweight is not able to be as active as she would like. She feels that her stomach hangs down too long and causes these types of rashes. Denies rashes to breast area. Denies pain to the area. Gretta Al NP [address], [place], [address], [place] [facility] 02/08/2023 19:24:40 OBGyn Episode No OBEpisode recorded.
== END 2024-05-30 12:07 | disposition home or self-care (01) ==
PROVIDERS: PCP Nurse Practitioner; Referring Provider Physician Assistant; Visit Provider Internal Medicine
DX: M43.16 Spondylolisthesis, lumbar region (principal); M96.1 Postlaminectomy syndrome, not elsewhere classified
CPT/HCPCS: 99213

== ENCOUNTER → 2024-05-30 11:08 | Outpatient (BNVA) | payer MEDICARE, MEDICAID, SELFPAY | PROVIDERS: PCP Nurse Practitioner; Referring Provider Physician Assistant; Visit Provider Internal Medicine | DX: M43.16 Spondylolisthesis, lumbar region (principal); M79.7 Fibromyalgia; M96.1 Postlaminectomy syndrome, not elsewhere classified | CPT/HCPCS: 99212 ==

== ENCOUNTER 2024-10-09 12:48 | Outpatient (AMB) | payer MEDICARE, MEDICAID, SELFPAY ==
--- NOTE | 2024-10-09 13:06 | MHC.OFFVIS ---
Vital Signs 10/09/24 13:09 Height 5 ft Weight 189 lb 9.561 oz BMI 37.0 BP 118/70 Blood Pressure Location Lt brachial Position Sitting Pulse 94 Pulse Source Pulse Oximeter Pulse Oximetry (%) 98 Oxygen Delivery Method Room Air Intake Visit Reasons: COPD/CT Follow Up Allergies levofloxacin [From Levaquin] Allergy (Severe, Verified 10/09/24 13:11) lost feeling in legs adhesive tape Adverse Reaction (Severe, Verified 10/09/24 13:11) Blister clavulanic acid [From Augmentin] Adverse Reaction (Severe, Verified 10/09/24 13:11) Gastrointestinal Upset hydromorphone [From Dilaudid] Adverse Reaction (Severe, Verified 10/09/24 13:11) Nausea oxycodone Adverse Reaction (Severe, Verified 10/09/24 13:11) Vomiting clarithromycin [From Biaxin] Adverse Reaction (Intermediate, Verified 10/09/24 13:11) Nausea and Vomiting clindamycin Adverse Reaction (Intermediate, Verified 10/09/24 13:11) Nausea and Vomiting doxycycline Adverse Reaction (Intermediate, Verified 10/09/24 13:11) Nausea and Vomiting Sulfa (Sulfonamide Antibiotics) Adverse Reaction (Intermediate, Verified 10/09/24 13:11) Nausea and Vomiting HPI Comments Details: The patient is a 63 y/o woman with COPD, former smoker and FERCHO on CPAP. Having muliple complaints including chest tightness and shortness of breath. Moderate in severity. Her SUNDAR inhaler does not help. She did undergo PFTs at [facility] with mild COPD, but significant small airways disease. She also underwent a CT chest demonstrating moderate emphysema, multiple pulmonary nodules and an anterior mediastinal mass. She was dx with a thymoma. Denies any weakness or myasthenia Gravis. She will be undergoing surgery at [facility] soon. Also, she has been on CPAP for many years, However, her CPAP is no longer working. She does have an elevated [place] score 05/18. 04/19/2023 the patient is here for a pulmonary follow-up visit. Overall the patient has been doing well. She did undergo her thymoma surgery. After she did have some chest discomfort. But it has been slowly getting better. Her breathing also been better. She does have oxygen right now. We did take her off the oxygen and did a 6 minute walk test. She was able to maintain pulse ox within the normal ranges. Therefore, is reasonable for her to discontinue the oxygen for now. will plan to reassess her again when she returns for her next follow-up visit. In the meantime her respiratory status is stable. the patient is scheduled to undergo spine surgery. At this point clinically the patient is doing better. the patient does have increased risk for perioperative pulmonary complications which includes atelectasis, hypoxia, pneumonia. At this point she is medically optimized from a pulmonary standpoint it may go ahead and proceed with anesthesia and surgery. She should keep the oxygen at home however. It is likely that she will needed postoperatively. The patient also underwent a home sleep study. The patient does have moderate degree of sleep apnea. She also underwent a titration study and they did recommend APAP. Therefore, I will submit for a replacement CPAP since her current CPAP is no longer functional. She does have an elevated [place] score of 05/18. The patient does have cardiovascular risk factors therefore restarting her CPAP is important. 08/08/2023 the patient is here for a pulmonary follow-up visit. Overall she is doing well. She stopped the Symbicort because she was getting thrush. She is just doing well on the rescue inhaler. Unfortunately she could not have her surgery and now scheduled for the next few weeks from now. Clinically the patient is doing much better from a respiratory status and she really is not using the oxygen at this time. Like we plan the last time we want to retest her for oxygen needs after her surgery just in case she needs oxygen in the postoperative period. I do believe that she will not need it. She did get a new CPAP. The CPAP has been affecting beneficial she does use it for more than 4 hours a night with 100% compliance. Her AHI though continues to be a little elevated at 5.7. We did increase her pressures from 6-16 2 8-18 because she does need a higher pressure. I believe that this will help. 11/16/2023 the patient is here for a pulmonary follow-up visit. Overall the patient had been doing okay. Still using the Symbicort 2 thrush. We did talk about Anoro which would be a good agent for her specially with the chest tightness and wheezing. This 1 will not have the inhaled steroid to minimize the risk of any or mucosal irritation. The patient is agreeable to this. In meantime she has been using the CPAP. The CPAP therapy has been affecting beneficial. The patient did have her surgery and she tolerated it well though she did have some leakage from the wound for some period of time. As far as imaging studies the patient is due for CT scan in 08/14/2024. The patient continue with current respiratory therapy and CPAP follow-up in the spring. 01/24/2024 the patient is complaining worsening shortness of breath. Patient states that inhalers not helping. Her shortness of breath is moderate severity. We did review her pulmonary function studies together. She does have extensive emphysema primarily affecting the upper lung zones. She does also have some atelectasis at the right base. Also some postoperative changes. She has not had any recent PFTs specially after her surgery. Will go ahead and request pulmonary function studies as she was not severity of her COPD. In the meantime will go ahead and maximize her respiratory therapy by giving her a course of prednisone to try to decrease the inflammation of the airways and also start her on Trelegy. The patient also underwent a 6 minute walk test. Appears that she briefly decreased down to 88% with activity. The patient does have extensive emphysema and also likely some restriction due to the atelectasis and postoperative changes. Explained to her that this is causing her to have significant diffusion impairment. The patient benefits from oxygen supplementation with activity. We did ambulate her on 2 L pulse and she was able to maintain a pulse ox of 94% with activity. Therefore, will request a portable oxygen concentrator from her [employer] company to see if we can provide her with better portability outside of the home. She does use a walker and will be easier for her to carry with less risk of injury. The patient will undergo pulmonary function studies and she will return for further follow-up. 04/10/2024 the patient is here for a pulmonary follow-up visit. Overall she is doing okay. Her breathing is better. The patient has have significant back pain though she has to follow-up with her surgeon. From a breathing standpoint the patient did have pulmonary function studies. She does have COPD. I did recommend pulmonary rehabilitation and she is open to this. The patient also is getting oxygen delivered. She will be getting a portable oxygen concentrator to provide better portability touch with significant back pain and her walker use. Hopefully we can get her to pulmonary rehabilitation and improve her respiratory capacity. In 6 months will reassess to see if she still needs the oxygen. We did do an overnight oximetry at nighttime. The patient does not appear to need the oxygen while using her CPAP. The CPAP therapy continues to be affecting beneficial and she does use it for more than 4 hours a night. 10/09/2024 the patient is here for a pulmonary follow-up visit. She continues to be about the same complaining of dyspnea on exertion. Moderate severity. Sometimes it waxes and wanes were sometimes she feels okay and sometimes she does not. The patient does understand that she does have COPD although her PFTs are basically just mild. She is on Trelegy right now. She does not see much improvement but I did recommend she continue for now. She still with significant back pain. She was supposed to try a pain stimulator trial but is still yet to be approved. She is waiting to hear back from the pain clinic. Hopefully once the situated we can have her undergo pulmonary function studies and see about getting pulmonary rehabilitation on board because she is deconditioned. She does continue to use his CPAP every night and the CPAP therapy continues to be affecting beneficial. She does use it for more than 4 hours a night. As far as her pulmonary nodules and history of thymoma she did undergo a CT scan of the chest at [facility]. It appears that the 6 mm nodule stable in the postoperative changes are stable as well without any evidence of any recurrence of the thymoma. I did reassure her. She does have some emphysema. Therefore, she should continue to follow the current respiratory regimen and CPAP therapy. Follow-up with pain management to have better pain control regimen and ultimately when she comes back will perform her PFTs and hopefully start pulmonary rehabilitation. [facility] Medical History (Updated 06/03/24 @ 15:46 by Prince Corrigan MD) Dyspnea GERD (gastroesophageal reflux disease) Depression Arthritis Fibromyalgia Pulmonary nodules Thymoma FERCHO on CPAP COPD (chronic obstructive pulmonary disease) Surgical History (Updated 08/31/23 @ 11:48 by DIGNA Mckinley) Hx of foot surgery History of esophagogastroduodenoscopy (EGD) H/O colonoscopy H/O thymectomy H/O parotidectomy H/O tubal ligation H/O sinus surgery Family History Mother COPD (chronic obstructive pulmonary disease) Father Prostate CA Social History Household Members: Spouse Are you a primary career technology teacher to a significant other at home: No Do you presently have visiting nurse or other home services: Yes (Meals on Wheels) Alcohol intake: never Patient Tobacco Use Status: Former Tobacco user Tobacco use type: Cigarette Cigarette Packs Per Day: 1 Years Smoked: 20 Review of Systems Const Denies chills, Denies fatigue, Denies fever(s), Denies weight gain and Denies weight loss Eyes Denies change in vision and Denies diplopia ENT Denies dizziness Card Denies chest pain, Denies leg edema, Denies lightheadedness, Denies palpitations, Denies dyspnea on exertion, Denies orthopnea and Denies other Resp Denies cough, Denies dyspnea on exertion and Denies wheezing GI Denies hematochezia and Denies change in stool character Musc Denies abnormal gait, Denies muscle weakness, Denies numbness, Denies radiating pain into limb and Denies tingling Skin/Breast Denies rash Neuro Denies abnormal gait, Denies dizziness, Denies numbness and Denies tingling Endo Denies fatigue and Denies palpitations David/Lymph Denies lymphadenopathy Aller/Immun Denies wheezing Physical Exam Vital Signs: Last Vital Signs Pulse 94 10/09/24 13:09 BP 118/70 10/09/24 13:09 Pulse Ox 98 10/09/24 13:09 Oxygen Delivery Method Room Air 10/09/24 13:09 BMI result Body Mass Index 37.0 Const General: comfortable HEENT Head: Yes normocephalic Neck Neck: Yes supple Chest Chest palpation & inspection: normal inspection of the chest Resp Effort & Inspection: normal respiratory effort Auscultation: clear to auscultation bilaterally and no wheezes Cardio Rate: regular rate Rhythm: regular rhythm Heart sounds: S1 normal heart sound present and S2 normal heart sound present GI Palpation (GI): Soft to palpation Skin General skin exam: no rashes or lesions noted Extrem General: Yes no clubbing, cyanosis or edema Assessment & Plan Assessment & Plan (1) COPD (chronic obstructive pulmonary disease): Code(s): J44.9 - Chronic obstructive pulmonary disease, unspecified Category: Medical Qualifiers: COPD type: emphysema Emphysema type: centrilobular Qualified Code(s): J43.2 - Centrilobular emphysema (2) FERCHO on CPAP: Code(s): G47.33 - Obstructive sleep apnea (adult) (pediatric); Z99.89 - Dependence on other enabling machines and devices Category: Medical (3) Thymoma: Comment: w/surgery 11/07/22 @ [facility] Code(s): D49.89 - Neoplasm of unspecified behavior of other specified sites Category: Medical (4) Pulmonary nodules: Code(s): R91.8 - Other nonspecific abnormal finding of lung field Category: Medical (5) Dyspnea: Code(s): R06.00 - Dyspnea, unspecified Category: Medical Qualifiers: Dyspnea type: dyspnea on exertion Qualified Code(s): R06.09 - Other forms of dyspnea Plan Oxygen revision: start 2l/pulse with activity, the patient benefits from aportable oxygen concentrator for better portability outside of the home conitnue Trelegy SUNDAR as needed APAP from local DME 8-18 overnight oximetry on CPAP RA was ok CT chest to f/u nodules 07/2025 at [facility] PFTs pain management F/U 6 months Orders: Orders PFT pulmonary function test 4 Months J43.2 - Centrilobular emphysema Coding Level of Care Code Est Pt Level 4 (39056) Diagnoses Centrilobular emphysema J43.2 COPD type: emphysema Emphysema type: centrilobular FERCHO on CPAP G47.33; Z99.89 Thymoma D49.89 Pulmonary nodules R91.8 Dyspnea on exertion R06.09 Dyspnea type: dyspnea on exertion Time Spent (min) 17
[2024-10-09 13:09] VITALS: BP 118/70; PULSE 94; O2SAT 98; BMI 37.0
--- OUTSIDE RECORDS SUMMARY | 2024-10-09 15:34 | XMS_ITS | Continuity of Care Document ---
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 Onset: Chronic fatigue syndrome Tee Pagan M.D. O nset: 01/16/2023 Fibromyalgia Tee Pagan M.D. Onset: Obese class I Tee Pagan M.D. Onset: Osteoporosis Tee Pagan M.D. Onset: Essential hypertension Tee Pagan M.D. Ons et: 01/16/2023 Thyroid nodule Tee Pagan M.D. Onset: Thymoma Tee Pagan M.D. Onset: Obstructive sleep apnea syndrome Tee Pagan M.D. Onset: 07/03/2023 Osteoarthritis Tee Pagan M.D. Onset: Adrenal mass Tee Pagan M.D. Onset: Social History Type Date Description Comments Sex Unknown Tobacco Use Start: Unknown End: Unknown Quit ETOH Use Rarely consumes alcohol Tobacco Use Start: Unknown End: Unknown Patient is a former smoker Smoking Status Reviewed: 01/16/23 Patient is a former smoker Allergies and adverse reactions Active Allergies Criticality Reaction Severity Comments Date Augmentin Unable to assess criticality 01/16/2023 Levaquin Unable to assess criticality 01/16/2023 Oxycodone Unable to assess criticality 01/16/2023 Percocet Unable to assess criticality 01/16/2023 Medications Active Medications SIG Qnty Indications Order ing Provider Date BD Pen Needle/Short/Ultra-Fi ne/31G X 8mm31G X 8 mm Misc use 1 pen needle 3 times a day before meals 300units M81.0 Magda Marinelli M.D. 12/12/2023 [id number] Tablets 1 by mouth every day 90tabs Tee Pagan M.D. 01/16/[id number] Take 1 Capsule By Mouth Twice A Day Suzanna Aguilar MD Hydroxyzine [id number] Tablets Take 1 Tablet (25 MG) By Mouth 3 Times A Day as Needed For Itching Purnima Stock P.ASatya Lisinopril2.5mg Tablets Take 1 Tablet By Mouth Twice A Day Purnima [employer] P.ASatya Trazodone [id number] Tablets Take 2 Tablets By Mouth Every Day For 90 Days Mega Tijerina MD [id number] Tablets Take 1 Tablet By Mouth Twice A Day For 30 Days Mega Tijerina MD [id number] Tablets Take 1 Tablet By Mouth Every Day AT Bedtime as Needed Purnima [employer] P.ASatya Escitalopram Hkisosw48ay Tablets Take 1 Tablet By Mouth Every Day Purnima Stock P.ASatya Duloxetine [id number] Caps DR Part 1 tab by mouth twice a day Mega Tijerina MD Vital Signs Date Vital Result Comment 09/23/2024 4:08pm BP Systolic 110 mmHg BP Diastolic 60 mmHg Heart Rate 88 /min Height 61 inches 5'1 Weight 188.00 lb BMI (Body Mass Index) 35.5 kg/m2 Results Test Acquired Date Facility Test Result H/L Range Note Cortisol, Urinary Free By HPLC 10/03/2024 [facility] Cortisol,F,ug/L, U 79 ug/L Undefined 1 Cortisol,F,ug/2 4 hr,U 40 ug/24hr 6-42 TSH 09/30/2024 [facility] TSH 1.930 uIU/mL 0.450-4.500 2 Thyroxine (T4) Free, Direct 09/30/2024 [facility] Thyroxine (T4) Free, Direct 0.96 ng/dL 0.82-1.77 Calcium 09/30/2024 [facility] Calcium 9.0 mg/dL 8.7-10.3 Vitamin D, 25-Hydroxy 09/30/2024 [facility] Vitamin D, 25-Hydroxy 31.2 ng/mL 30.0-100.0 3 Albumin 09/30/2024 [facility] Albumin 3.9 g/dL 3.9-4.9 Glomerular Filtration Rate Estimated 09/30/2024 [facility] Creatinine 0.88 mg/dL 0.57-1.00 eGFR 74 mL/min/1. 73 >59 Aldosterone LCMS, Serum 09/30/2024 [facility] Aldosterone LCMS, Serum 5.8 ng/dL 0.0-30.0 Renin Activity, Plasma 09/30/2024 [facility] Renin Activity, Plasma 2.312 ng/mL/hr 0.167-5.[address], Free 09/30/2024 [facility] Metanephrines Frac., PL, Free <pending> Calcium 01/01/2024 [facility] Calcium 9.6 mg/dL 8.7-10.3 Albumin 01/01/2024 [facility] Albumin 4.2 g/dL 3.9-4.9 Cortisol, Free, 24 HR Urine 02/09/2023 [facility] Cortisol, Quant 20 4 Ur Free Cortisol 37 5 Total Volume 550 Ptelj-Ht-Prjkz 02/09/2023 [facility] Creatinine, Urine MG/DL 160.6 mg/dL Creatinine Ur GM/24HR 0.9 GM/24HR (0.72-1.5) Period & Volume 02/09/2023 [facility] Urine Collection Period 24 HRS Volume 550 MLS Cortisol 02/05/2023 [facility] Cortisol 2.6 g /dL 6 TSH With Reflex To FT4 01/16/2023 [facility] TSH With Reflex To FT4 0.50 uIU/mL (0.4-4.2) FT4 By Direct Dialysis 01/16/2023 [facility] FT4 By [facility] 0.91 7 Free T3 01/16/2023 [facility] Free T3 2.7 pg/mL (2.3-5.0) 25Oh Vitamin D 01/16/2023 [facility] 25Oh Vitamin D 46.9 NG/ML (20-50) Free T4 01/16/2023 [facility] Free T4 0.82 ng/dL (0.70-1.80) 1 Test(s) 706607-Deuqe lucia,F,ug/L,U was developed and its performance characteristics determined by [facility]. It has not been cleared or approved by the Food and Drug Administration. 2 Test(s) 052023-Wlubx Activity, Plasma was developed and its performance characteristics determined by [facility]. It has not been cleared or approved by the Food and Drug Administration. Test(s) 904725-Gpjskfxjdjd was developed and its performance characteristics determined by [facility]. It has not been cleared or approved by the Food and Drug Administration. 3 Vitamin D deficiency has been defined by the [place] of Medicine and an Endocrine Society practice guideline as a level of serum 25-OH vitamin D less than 20 ng/mL (1,2). The Endocrine Society went on to further define vitamin D insufficiency as a level between 21 and 29 ng/mL (2). 1. IOM ([place] of Medicine). 2010. Dietary reference intakes for calcium and D. [place]: The National Academies Press. 2. Benita MF, Solitario WOOD, Cole BURTON, et al. Evaluation, treatment, and prevention of vitamin D deficiency: an Endocrine Society clinical practice guideline. JCEM. 2010; 96(7):1911-30. 4 Reference range: 6 t o 42 Unit: ug/24 hr 5 Reference range: Und efined Unit: ug/L (NOTE) This test was developed and its performance characteristics determined by [facility]. It has not been cleared or approved by the Food and Drug Administration. Test performed at [address] [address] 6 Reference Range: 6-10 am: 6.0-18.4 ug/dL 4-8 pm: 2.7-10.5 ug/dL 7 Unit: ng/dL (NOTE) This test was developed and its performance characteristics determined by [facility]. It has not been cleared or approved by the Food and Drug Administration. Reference Range: Pubertal Children and Adults: 0.8 - 1.7 Test performed by [facility], [address], [place] [address] Medical Devices Description No Information Available Encounters Type Date Location Provider Dx Diagnosis Office Visit 09/23/2024 3:15p Main Office DIGNA Perkins R19.09 Other intra-abdominal and pelvic swelling, mass and lump M81.0 Age-related osteopor osis w/o current pathological fracture E04.1 Nontoxic single thyr oid nodule Assessments Date Code Description Provider 09/23/2024 R19.09 Adrenal mass DIGNA Perkins 09/23/2024 M81.0 Age-related oste oporosis without current pathological fracture DIGNA Perkins 09/23/2024 E04.1 Thyroid nodule DIGNA Pineda Plan of Treatment No Information Available Functional Status Description No Information Available Mental Status Description No Information Available Referrals Description No Information Available
== END 2024-10-09 14:12 | disposition home or self-care (01) ==
LOC: HO.HPS 12:48
PROVIDERS: PCP Nurse Practitioner; Visit Provider Hospitalist
DX: J43.2 Centrilobular emphysema (principal); G47.33 Obstructive sleep apnea (adult) (pediatric); Z99.89 Dependence on other enabling machines and devices; D49.89 Neoplasm of unspecified behavior of other specified sites; R91.8 Other nonspecific abnormal finding of lung field; R06.09 Other forms of dyspnea
CPT/HCPCS: 99214

== ENCOUNTER → 2024-10-09 12:48 | Outpatient (BNVA) | payer MEDICARE, MEDICAID, SELFPAY | PROVIDERS: PCP Nurse Practitioner; Visit Provider Hospitalist | DX: R06.09 Other forms of dyspnea (principal); J43.2 Centrilobular emphysema; G47.33 Obstructive sleep apnea (adult) (pediatric); D49.89 Neoplasm of unspecified behavior of other specified sites; R91.8 Other nonspecific abnormal finding of lung field; Z99.89 Dependence on other enabling machines and devices | CPT/HCPCS: 99212 ==

== ENCOUNTER 2024-12-17 09:43 | Day surgery (SDC) | payer MEDICARE, MEDICAID, SELFPAY ==
--- OUTSIDE RECORDS SUMMARY | 2024-11-19 11:40 | XMS_ITS | Continuity of Care Document ---
Author Organization [facility] [address] [facility] [place] [address] Phone [phone] Care Team Providers Care Lining Cutter Name Role Phone Emmanuel Merrill NP Care Team Information Research Nutritionist [phone] Problems Active Problems Provider Date Asthma Tee [...] syndrome Tee Pagan M.D. Onset: 07/03/2023 Osteoarthritis eTe Pagan M.D. Onset: Adrenal mass Tee Pagan [...] meals 300units M81.0 Magda Marinelli M.D. 12/12/2023 [id number] Tablets 1 by mouth every day 90tabs Tee Pagan M.D. 01/16/[id number] Take 1 Capsule By Mouth Twice A Day Suzanna Aguilar MD Hydroxyzine [id number] Tablets Take 1 Tablet (25 MG) By Mouth 3 Times A Day as Needed For Itching Purnima Stock P.ASatya Lisinopril2.5mg Tablets Take 1 Tablet By Mouth Twice A Day Purnima Stock P.ASatya Trazodone QBE16ig Tablets Take 2 Tablets By Mouth Every Day For 90 Days Mega Tijerina MD [id number] Tablets Take 1 Tablet By Mouth Twice A Day For 30 Days Mega Tijerina MD [id number] Tablets Take 1 Tablet By Mouth Every Day AT Bedtime as Needed Purnima Stock P.ASatya Escitalopram [id number] Tablets Take 1 Tablet By Mouth Every Day Purnima Stock P.ASatya Duloxetine [id number] Caps DR Part 1 tab by mouth twice a day Mega Tijerina MD Vital Signs Date Vital Result Comment 09/23/2024 4:08pm BP Systolic 110 mmHg BP Diastolic 60 mmHg Heart Rate 88 /min Height 61 inches 5'1 Weight 188.00 lb BMI (Body Mass Index) 35.5 kg/m2 Results Test Acquired Date Facility Test Result H/L Range Note Cortisol, Urinary Free By HPLC 10/03/2024 [facility] Cortisol,F,ug/ L,U 79 ug/L Undefined 1 Cortisol,F,ug/ 24hr,U 40 ug/24hr 6-42 TSH 09/30/2024 [facility] TSH [...] 0.167-5.380 [address]., PL, Free 09/30/2024 [facility] Normetanephrin e, Pl 108.0 pg/mL 0.0-285.2 Metanephrine, Pl 27.3 pg/mL 0.0-88.0 Calcium 01/01/2024 [facility] Calcium 9.6 mg/dL 8.7-10.3 Albumin 01/01/2024 [facility] Albumin 4.2 g/dL 3.9-4.9 Cortisol, Free, 24 HR Urine 02/09/2023 [facility] Cortisol, Quant 20 4 Ur Free Cortisol 37 5 Total Volume 550 Xwanw-Lg-Agufb 02/09/2023 [facility] Creatinine, Urine MG/DL 160.6 mg/dL Creatinine Ur GM/24HR 0.9 GM/24HR (0.72-1.5) Period & Volume 02/09/2023 [facility] Urine Collection Period 24 HRS Volume 550 MLS Cortisol 02/05/2023 [facility] Cortisol 2.6 g /dL 6 TSH With Reflex To FT4 01/16/2023 [facility] TSH With Reflex To FT4 0.50 uIU/mL (0.4-4.2) FT4 By Direct Dialysis 01/16/2023 [facility] FT4 By Direct Dialysis 0.91 7 Free T3 01/16/2023 [facility] Free T3 2.7 pg/mL (2.3-5.0) 25Oh Vitamin D 01/16/2023 [facility] 25Oh Vitamin D 46.9 NG/ML (20-50) Free T4 01/16/2023 [facility] Free T4 0.82 ng/dL (0.70-1.80) 1 Test(s) 608625-Rvdrr lucia,F,ug/L,U was developed and its performance characteristics determined by [facility]. It has not been cleared or approved by the Food and Drug Administration. 2 Test(s) 201296-Xqlzm Activity, Plasma was developed and its performance characteristics determined by [facility]. It has not been cleared or approved by the Food and Drug Administration. Test(s) 758259-Mdkixtvmete was developed and its performance characteristics determined by [facility]. It has not been cleared or approved by the Food and Drug Administration. Test(s) 028604-Vdsvvynerjdeokk, Pl; 730614-Gbtavlshmftg, Pl was developed and its performance characteristics determined by [facility]. It has not been cleared or approved by the Food and Drug Administration. 3 Vitamin D deficiency has been defined by the [place] of [employer] and an Endocrine Society practice guideline as a level of serum 25-OH vitamin D less than 20 ng/mL (1,2). The Endocrine Society went on to further define vitamin D insufficiency as a level between 21 and 29 ng/mL (2). 1. IOM ([place] [employer]). 2010. Dietary reference intakes for calcium and D. [place]: The National Academies Press. 2. Benita MF, Solitario [place], Cole BURTON, et al. Evaluation, treatment, and prevention of vitamin D deficiency: an Endocrine Society clinical practice guideline. JCEM. 2010; 96(7):1911-30. 4 Reference range: 6 t o 42 Unit: ug/24 hr 5 Reference range: Und efined Unit: ug/L (NOTE) This test was developed and its performance characteristics determined by [facility]. It has not been cleared or approved by the Food and Drug Administration. Test performed at [place] [id number] Reference Range: 6-10 am: 6.0-18.4 ug/dL 4-8 pm: 2.7-10.5 ug/dL 7 Unit: ng/dL (NOTE) This test was developed and its performance characteristics determined by [facility]. It has not been cleared or approved by the Food and Drug Administration. Reference Range: Pubertal Children and Adults: 0.8 - 1.7 Test performed by [facility], [address] [place] [address], [place] [address] Medical Devices Description No Information Available Encounters [...] Thyroid nodule [facility] Pineda Plan of Treatment Future Appointment(s):* 01/09/2025 1:15 pm - [facility] at Main Office 09/23/2024 - [facility] Perkins* R19.09 Adrenal mass * M81.0 Age-related osteoporosis without current pathological fracture * E04.1 Thyroid nodule Functional Status Description No Information Available Mental Status Description No Information Available Referrals Description No Information Available
[2024-12-15 10:05] VITALS: BMI 37.1
--- NOTE | 2024-12-16 09:12 | HO.ANESPROP2 ---
Documented by User: Odalys Kovacs NP 12/16/24 09:24 HPI - Anesthesia Eval Consult details Narrative: 64yo F for Spinal Cord Stimulation Trial s/p foraminotomy 2023 with GA-ETT 7 s/p thymectomy 2022 - no hx Myesthenia - CT scan of the chest at [facility] 10/2024: It appears that the 16 mm left adrenal nodule stable and the postoperative changes are stable as well without any evidence of any recurrence of the thymoma. Follows [facility] Pulmo for COPD, FERCHO. Last office visit 09/2024 with chronic WEN - deconditioning r/t back pain. Plan for pulmo rehab after back pain addressed with spinal stim. CT scan of the chest at [facility]. It appears that the 6 mm nodule stable in the postoperative changes are stable as well without any evidence of any recurrence of the thymoma. [facility] Active Problems Active Problems: All Active Problems Post laminectomy syndrome (Acute) Status post lumbar surgery (Acute) Pre-op chest exam (Acute) Chest pain (Acute) On supplemental oxygen therapy (Acute) Nocturnal hypoxemia (Acute) Fibromyalgia, primary (Acute) Spondylolisthesis, lumbar region (Acute) Dyspnea (Acute) Pulmonary nodules (Acute) Thymoma (Acute) FERCHO on CPAP (Acute) COPD (chronic obstructive pulmonary disease) (Acute) Past Medical History Medical History Hx of ovarian cyst Adrenal cyst Dyspnea GERD (gastroesophageal reflux disease) Depression Arthritis Fibromyalgia Pulmonary nodules Thymoma FERCHO on CPAP COPD (chronic obstructive pulmonary disease) Family History Family History Mother COPD (chronic obstructive pulmonary disease) Father Prostate CA Family history of problems with anesthesia: No Surgical History Surgical History History of back surgery Hx of foot surgery History of esophagogastroduodenoscopy (EGD) H/O colonoscopy H/O thymectomy H/O parotidectomy H/O tubal ligation H/O sinus surgery History of Problems with Anesthesia: No Social History Social History Household Members: Spouse Are you a primary palliative care nurse to a significant other at home: No Do you presently have visiting nurse or other home services: Yes (Meals on Wheels) Alcohol intake: never Patient Tobacco Use Status: Former Tobacco user Tobacco use type: Cigarette Cigarette Packs Per Day: 1 Years Smoked: 20 Meds Allergies Allergy/AdvReac Type Severity Reaction Status Date / Time levofloxacin (From Levaquin) Allergy Severe lost Verified 12/17/24 10:16 feeling in legs adhesive tape AdvReac Severe Blister Verified 12/17/24 10:16 clavulanic acid (From AdvReac Severe Gastrointestinal Verified 12/17/24 10:16 Augmentin) Upset hydromorphone (From Dilaudid) AdvReac Severe Nausea Verified 12/17/24 10:16 clarithromycin (From Biaxin) AdvReac Intermediate Nausea and Verified 12/17/24 10:16 Vomiting clindamycin AdvReac Intermediate Nausea and Verified 12/17/24 10:16 Vomiting doxycycline AdvReac Intermediate Nausea and Verified 12/17/24 10:16 Vomiting Sulfa (Sulfonamide AdvReac Intermediate Nausea and Verified 12/17/24 10:16 Antibiotics) Vomiting Home Medications ?Medication ?Instructions ?Recorded ?Confirmed ?Last Taken ?Type albuterol sulfate 90 mcg/actuation 2 mcg inhalation Q4H PRN Shortness 07/19/22 12/15/24 12/17/24 09:30 History aerosol inhaler Of Breath Or Wheezing escitalopram oxalate 10 mg tablet 10 mg PO DAILY 07/19/22 12/15/24 Unknown History lisinopril 2.5 mg tablet 2.5 mg PO BID 07/19/22 12/15/24 Unknown History modafinil 200 mg tablet (Provigil) 200 mg PO BID 07/19/22 12/15/24 Unknown History omeprazole 40 mg capsule,delayed 40 mg PO BID 07/19/22 12/15/24 Unknown History release trazodone 50 mg tablet 100 mg PO BEDTIME PRN Insomnia 07/19/22 12/15/24 Unknown History vitamin B complex and vitamin C 1 cap PO DAILY 07/19/22 12/15/24 Unknown History no.20-folic acid 1 mg capsule cholecalciferol (vitamin D3) 25 25 mcg PO DAILY 10/24/22 12/15/24 Unknown History mcg (1,000 unit) capsule hydroxyzine HCl 25 mg tablet 25 mg PO TID PRN itch 10/24/22 12/15/24 Unknown History cetirizine 10 mg tablet 10 mg PO DAILY 06/22/23 12/15/24 Unknown History lorazepam 1 mg tablet 1 mg PO DAILY PRN Anxiety 08/08/23 12/15/24 Unknown History CPAP (CPAP Machine/Device) 04/10/24 Unknown History Oxygen Home Use 04/10/24 Unknown History gabapentin 300 mg tablet,extended 300 mg PO BID 10/09/24 12/15/24 Unknown History release 24 hr (Gralise) duloxetine 30 mg capsule,delayed 30 mg PO BID 12/17/24 12/17/24 Unknown History release Exam Height,Weight and Vital Signs: Height 5 ft Weight 86.183 kg Assessment and Plan Assessment Anesthesia Assessment: Chart Reviewed Final Anesthetic Review Family History of Problems with Anesthesia: No History of Problems with Anesthesia: No Documented by User: Marija Yuen MD 12/17/24 11:50 PMFSH Past Medical History Medical History Hx of ovarian cyst Adrenal cyst Dyspnea GERD (gastroesophageal reflux disease) Depression Arthritis Fibromyalgia Pulmonary nodules Thymoma FERCHO on CPAP COPD (chronic obstructive pulmonary disease) Family History Family History Mother COPD (chronic obstructive pulmonary disease) Father Prostate CA Surgical History Surgical History History of back surgery Hx of foot surgery History of esophagogastroduodenoscopy (EGD) H/O colonoscopy H/O thymectomy H/O parotidectomy H/O tubal ligation H/O sinus surgery Social History Social History Household Members: Spouse Are you a primary palliative care nurse to a significant other at home: No Do you presently have visiting nurse or other home services: Yes (Meals on Wheels) Alcohol intake: never Patient Tobacco Use Status: Former Tobacco user Tobacco use type: Cigarette Cigarette Packs Per Day: 1 Years Smoked: 20 Meds Allergies Allergy/AdvReac Type Severity Reaction Status Date / Time levofloxacin (From Levaquin) Allergy Severe lost Verified 12/17/24 10:16 feeling in legs adhesive tape AdvReac Severe Blister Verified 12/17/24 10:16 clavulanic acid (From AdvReac Severe Gastrointestinal Verified 12/17/24 10:16 Augmentin) Upset hydromorphone (From Dilaudid) AdvReac Severe Nausea Verified 12/17/24 10:16 clarithromycin (From Biaxin) AdvReac Intermediate Nausea and Verified 12/17/24 10:16 Vomiting clindamycin AdvReac Intermediate Nausea and Verified 12/17/24 10:16 Vomiting doxycycline AdvReac Intermediate Nausea and Verified 12/17/24 10:16 Vomiting Sulfa (Sulfonamide AdvReac Intermediate Nausea and Verified 12/17/24 10:16 Antibiotics) Vomiting Home Medications ?Medication ?Instructions ?Recorded ?Confirmed ?Last Taken ?Type albuterol sulfate 90 mcg/actuation 2 mcg inhalation Q4H PRN Shortness 07/19/22 12/15/24 12/17/24 09:30 History aerosol inhaler Of Breath Or Wheezing escitalopram oxalate 10 mg tablet 10 mg PO DAILY 07/19/22 12/15/24 Unknown History lisinopril 2.5 mg tablet 2.5 mg PO BID 07/19/22 12/15/24 Unknown History modafinil 200 mg tablet (Provigil) 200 mg PO BID 07/19/22 12/15/24 Unknown History omeprazole 40 mg capsule,delayed 40 mg PO BID 07/19/22 12/15/24 Unknown History release trazodone 50 mg tablet 100 mg PO BEDTIME PRN Insomnia 07/19/22 12/15/24 Unknown History vitamin B complex and vitamin C 1 cap PO DAILY 07/19/22 12/15/24 Unknown History no.20-folic acid 1 mg capsule cholecalciferol (vitamin D3) 25 25 mcg PO DAILY 10/24/22 12/15/24 Unknown History mcg (1,000 unit) capsule hydroxyzine HCl 25 mg tablet 25 mg PO TID PRN itch 10/24/22 12/15/24 Unknown History cetirizine 10 mg tablet 10 mg PO DAILY 06/22/23 12/15/24 Unknown History lorazepam 1 mg tablet 1 mg PO DAILY PRN Anxiety 08/08/23 12/15/24 Unknown History CPAP (CPAP Machine/Device) 04/10/24 Unknown History Oxygen Home Use 04/10/24 Unknown History gabapentin 300 mg tablet,extended 300 mg PO BID 10/09/24 12/15/24 Unknown History release 24 hr (Gralise) duloxetine 30 mg capsule,delayed 30 mg PO BID 12/17/24 12/17/24 Unknown History release Exam Airway Mallampati Class: II TM Dist: >3cm Neck ROM: Full Denture: Upper Heart: rrr Lungs: cta Assessment and Plan Assessment Anesthesia Assessment: Anesthesia Plan Discussed Final Anesthetic Review NPO: Yes ASA Class: III Final Preanesthetic Review: No Changes in Pt Med Stat, Meds/Allgs Chart Reviewed, Consent Obtained/Reviewed and Anes Risks/Benef Reviewed Patient Risk: Intermediate Procedure Risk: Intermediate Anesthetic Plan Anesthetic Plan: MAC: Disposition: Standard PACU
[2024-12-17] VITALS (8 sets, daily range): BP systolic 120–149; BP diastolic 47–71; PULSE 68–83; RESP 17–18; TEMP 36.6–37.3; O2SAT 92–95; BMI 37.0
--- NOTE | ~2024-12-17 | FL_ITS ---
EXAMINATION: FL GUIDANCE ONLY HISTORY: trial COMPARISON: None available. TECHNIQUE: Fluoroscopy time: 43.1 seconds. Cumulative Dose: 79.72 mGy. Images: 2. FINDINGS: Images demonstrate a spinal stimulator in place in the midthoracic region. FL/FL guidance in OR IMPRESSION: Fluoroscopy during procedure. Please see procedure report for additional information. Electronically signed by: Dioni Crain MD 12/17/2024 02:07 PM EDT
[2024-12-17] MEDS: Lactated Ringers 1,000 ML 100 ML IVCONT (10:15)
[2024-12-17 11:51] LABS: MRSA Nasal PCR NEGATIVE (Negative); SA Nasal PCR POSITIVE (Negative)
--- NOTE | 2024-12-17 12:15 | MHC.SHP ---
Pre-Procedural Eval Section A - 24 Hr Update-Section A only Date of Service: 12/17/24 The patient is an INPATIENT: No Changes since office visit: Yes Patient answered all questions The patient has been examined within 24 hours of the surgical procedure. The History & Physical has been completed within 30 days and I have reviewed it.: No Section B - Complete if H&P > 30 days Chief Complaint: Postlaminectomy syndrome,Spondylolisthesis Relevant Family History (Specify if Yes): No Relevant Social History: None Present Medications: see Short Stay Collaborative assessment Medical History: No relevant PMH History of Previous Operations: Relevant previous surgery/procedure and date(s) (Spine surgery) Allergies: Allergies Allergy/AdvReac Type Severity Reaction Status Date / Time levofloxacin (From Levaquin) Allergy Severe lost Verified 12/17/24 10:16 feeling in legs adhesive tape AdvReac Severe Blister Verified 12/17/24 10:16 clavulanic acid (From AdvReac Severe Gastrointestinal Verified 12/17/24 10:16 Augmentin) Upset hydromorphone (From Dilaudid) AdvReac Severe Nausea Verified 12/17/24 10:16 clarithromycin (From Biaxin) AdvReac Intermediate Nausea and Verified 12/17/24 10:16 Vomiting clindamycin AdvReac Intermediate Nausea and Verified 12/17/24 10:16 Vomiting doxycycline AdvReac Intermediate Nausea and Verified 12/17/24 10:16 Vomiting Sulfa (Sulfonamide AdvReac Intermediate Nausea and Verified 12/17/24 10:16 Antibiotics) Vomiting Review of Systems Sugical H&P ROS: Negative: Constitution, Cardiovascular and Respiratory Exam Surgical H&P Exam: Normal: HEENT, Normal: Heart and Normal: Lungs Plan Diagnosis/Plan: Unchanged I have reviewed the history and physical and performed a pertinent physical examination on my patient. No changes have occurred unless specified. Time Spent With Patient Time: Total time managing care of this patient today ____ minutes.
[2024-12-17] MEDS: hydrOXYzine HCL 25 MG TABLET PO (14:25)
--- NOTE | 2024-12-17 15:32 | PM.OP ---
Brief Operative Note Date of Service: 12/17/24 Pre-op diagnosis: Post-laminectomy syndrome Procedure: Lumbar spinal cord stimulation trial Implants: [employer] 16 contact trial leads Surgeon: Prince Corrigan MD Anesthesia: MAC Was an Tilting Saw Operator used for this Procedure?: No Estimated blood loss (mL): 2 Pathology: none sent Condition: stable Disposition: PACU
--- NOTE | 2024-12-17 15:34 | P.OP_ITS ---
Operative Note Operative Note Date of Service: 12/17/24 Narrative: Preop Diagnosis: Postlaminectomy Syndrome Postop Diagnosis: Same Percutaneous Spinal Cord Stimulator Trial, Lumbar After obtaining written consent, pre-procedure blood pressure and heart rate were recorded and are in the nursing record for review. A peripheral IV was started. Antibiotics, cefazolin 2 gram, were given intraoperatively. The patient was placed in a prone position.? The patient was sedated by the anesthesiologist. The thoracolumbar area was widely prepped with ChloraPrep, allowed to dry and draped in sterile fashion. Fluoroscopy was used to identify t he target interlaminar spaces and appropriate needle insertion sites. The skin and subcutaneous tissue was anesthetized with 0.5% lidocaine. Two separate 14 gauge Epimed coude epidural needles were then advanced from this point in a paramedian approach to the epidural space opening at T12/L1 interspace, where loss of resistance was found using air. No paresthesias were elicited with needle placement. No CSF or heme was present upon needle placement. A guide wire was then used to confirm placement into the epidural space at each level under live fluoroscopy. The 1x16 stimulator lead wire was then threaded to the top of T7 in the right and left parasagittal positions under live fluoroscopy. The leads advanced midline and dorsally. The needles were then completely removed under live fluoroscopy. The stimulator wires were then secured with steristrips, Mastisol, gauze and tegaderm for skin dressing. The patient tolerated the procedure well and no complications were encountered. Following the procedure the patient's vital signs were stable. The patient was discharged home in good condition after being given discharge instructions. Time Out: Immediately prior to the procedure, the following was verbally confirmed that there is a signed consent form and that the correct patient, planned procedure, site and side are consistent with documentation and that necessary equipment and/or blood products are available prior to the start of the case. Complications: none EBL: <2 cc
== END 2024-12-17 14:35 | disposition home or self-care (01) ==
PROVIDERS: Registered Nurse Emergency; PCP Nurse Practitioner; Visit Provider Internal Medicine
PROC: (CPT 63650; principal; 2024-12-17 11:20)
DX: M96.1 Postlaminectomy syndrome, not elsewhere classified (principal); M43.16 Spondylolisthesis, lumbar region; R26.2 Difficulty in walking, not elsewhere classified; R26.89 Other abnormalities of gait and mobility; M79.7 Fibromyalgia; R19.8 Other specified symptoms and signs involving the digestive system and abdomen; F32.A Depression, unspecified; G47.33 Obstructive sleep apnea (adult) (pediatric); J44.9 Chronic obstructive pulmonary disease, unspecified; Z90.89 Acquired absence of other organs; Z99.89 Dependence on other enabling machines and devices; Z88.1 Allergy status to other antibiotic agents; Z88.2 Allergy status to sulfonamides; Z88.5 Allergy status to narcotic agent; L23.1 Allergic contact dermatitis due to adhesives; Z98.890 Other specified postprocedural states; Z87.891 Personal history of nicotine dependence
CPT/HCPCS: 63650 ×2; 87640; 87641; C1897; J0690; J2003; J2250; J2704; J3010

== ENCOUNTER → 2024-12-17 09:43 | Outpatient (BNV) | payer MEDICARE, MEDICAID, SELFPAY | PROVIDERS: PCP Nurse Practitioner; Visit Provider Internal Medicine | DX: M96.1 Postlaminectomy syndrome, not elsewhere classified (principal) | CPT/HCPCS: 63650 ==

== ENCOUNTER 2024-12-24 10:32 | Outpatient (AMB) | payer MEDICARE, MEDICAID, SELFPAY ==
--- NOTE | 2024-12-24 10:37 | MHC.OFFVIS ---
Vital Signs 12/24/24 10:39 Height 5 ft Weight 191 lb BMI 37.3 BP 137/60 Blood Pressure Location Lt brachial Position Sitting Respiration 16 Pulse 104 H Pulse Source Pulse Oximeter Pulse Oximetry (%) 91 L Oxygen Delivery Method Room Air Intake Visit Reasons: S/p Dragonfly Trial 12/17/24 Cashier Required: No Allergies levofloxacin (From Levaquin) Allergy (Severe, Verified 12/24/24 10:40) lost feeling in legs adhesive tape Adverse Reaction (Severe, Verified 12/24/24 10:40) Blister clavulanic acid (From Augmentin) Adverse Reaction (Severe, Verified 12/24/24 10:40) Gastrointestinal Upset hydromorphone (From Dilaudid) Adverse Reaction (Severe, Verified 12/24/24 10:40) Nausea clarithromycin (From Biaxin) Adverse Reaction (Intermediate, Verified 12/24/24 10:40) Nausea and Vomiting clindamycin Adverse Reaction (Intermediate, Verified 12/24/24 10:40) Nausea and Vomiting doxycycline Adverse Reaction (Intermediate, Verified 12/24/24 10:40) Nausea and Vomiting Sulfa (Sulfonamide Antibiotics) Adverse Reaction (Intermediate, Verified 12/24/24 10:40) Nausea and Vomiting Medication List - Last Reconciled 12/24/24 by Allyn Meyer LPN albuterol sulfate 90 mcg/actuation 2 mcg inhalation Q4H PRN B complex with C 20-folic acid 1 mg 1 cap PO DAILY cetirizine 10 mg PO DAILY cholecalciferol (vitamin D3) 25 mcg PO DAILY CPAP (CPAP Machine/Device) As directed duloxetine 30 mg PO BID escitalopram oxalate 10 mg PO DAILY fluticasone propionate 50 mcg/actuation 2 sprays intranasal DAILY 30 days nxijblqpmft-iyjoujgxp-edcmdivq 200-62.5-25 mcg (Trelegy Ellipta) 1 inh inhalation DAILY 30 days gabapentin ER (Gralise) 300 mg PO BID hydroxyzine HCl 25 mg PO TID PRN inhalational spacing device (Aerochamber MV spacer) As directed lisinopril 2.5 mg PO BID lorazepam 1 mg PO DAILY PRN methylprednisolone 4 mg PO DAILY modafinil (Provigil) 200 mg PO BID omeprazole 40 mg PO BID Oxygen Home Use As directed trazodone 100 mg PO BEDTIME PRN HPI HPI S/p Dragonfly Trial 12/17/24: Details: History of Present Illness The patient is a 64-year-old female presenting with sciatica. The sciatica pain was mostly resolved, with occasional tingling sensations. The patient reported significant relief from the FAST program, estimating a 90% improvement. The patient experienced itching after taking prednisone, which was prescribed for an unspecified condition. The itching was systemic and led to discontinuation of prednisone in favor of hydrocortisone and hydroxyzine. Paresthesia programs were noted to enhance itchiness, particularly after programming following a trial. The patient did not prefer these programs due to increased itchiness associated with fibromyalgia. Pain Description - Sciatica pain mostly resolved with occasional tingling. - Relief from FAST program with 90% improvement. Physical Exam - Lead insertion site is clean and dry. Leads were removed with tip intact. Pain Management - Affect: Itching impacted patient's comfort, leading to medication change. - Analgesia: FAST program provided 90% relief from sciatica. - Adverse Effects: Itching from prednisone, resolved with hydrocortisone and hydroxyzine. - Activities of Daily Living: Itching and paresthesia affected comfort, leading to avoidance of certain programs. COUNT INCLUDES THE [facility] Medical History Hx of ovarian cyst Adrenal cyst Dyspnea GERD (gastroesophageal reflux disease) Depression Arthritis Fibromyalgia Pulmonary nodules Thymoma FERCHO on CPAP COPD (chronic obstructive pulmonary disease) Surgical History History of back surgery Hx of foot surgery History of esophagogastroduodenoscopy (EGD) H/O colonoscopy H/O thymectomy H/O parotidectomy H/O tubal ligation H/O sinus surgery Family History Mother COPD (chronic obstructive pulmonary disease) Father Prostate CA Social History Household Members: Spouse Are you a primary youth care specialist to a significant other at home: No Do you presently have visiting nurse or other home services: Yes (Meals on Wheels) Alcohol intake: never Patient Tobacco Use Status: Former Tobacco user Tobacco use type: Cigarette Cigarette Packs Per Day: 1 Years Smoked: 20 Physical Exam Vital Signs: Last Vital Signs Pulse 104 H 12/24/24 10:39 Resp 16 12/24/24 10:39 BP 137/60 12/24/24 10:39 Pulse Ox 91 L 12/24/24 10:39 Oxygen Delivery Method Room Air 12/24/24 10:39 BMI result Body Mass Index 37.3 Assessment & Plan Assessment & Plan (1) Post laminectomy syndrome: Code(s): M96.1 - Postlaminectomy syndrome, not elsewhere classified Category: Medical Plan Plan - Proceed with [employer] 8 contact lead implant spanning T8/9 for lumbar spinal cord stimulation given excellent relief with targeted stimulation at the site. - Avoid paresthesia programs due to increased itchiness and discomfort. - Discontinue prednisone due to adverse effects and continue with hydrocortisone and hydroxyzine for itching management. Patient was informed and verbally consented to the use of an ambient scribe for clinic note documentation during this visit. Discussion Notes I discussed with the patient the significant relief achieved from the FAST program for sciatica and advised continuing it. We reviewed the adverse effects of prednisone, leading to its discontinuation, and the use of hydrocortisone and hydroxyzine for managing itching. The patient was advised to avoid paresthesia programs due to increased itchiness and discomfort. Patient Instructions - Avoid paresthesia programs to prevent increased itchiness. - Use hydrocortisone and hydroxyzine as directed for itching. Coding Level of Care Code Est Pt Level 3 (97758) Diagnoses Post laminectomy syndrome M96.1
[2024-12-24 10:39] VITALS: BP 137/60; PULSE 104; RESP 16; O2SAT 91; BMI 37.3
--- OUTSIDE RECORDS SUMMARY | 2024-12-24 11:10 | XMS_ITS | Data Portability ---
Author Organization [place] [facility] Address [address] [place] [id number] Care Team Providers Care Engraving Operator Name Role Phone YULIVICTORIAKayyGHAZAL MONTES DE OCA Primary Care Provider Assessment Encounter Date Assessment [...] care of this patient according to [facility]'s infection prevention protocols. [email or web address] Not available 01/02/2023 22:00:13 01/12/2023 01/12/2023 Time [...] care of this patient according to [facility]'s infection prevention protocols. [email or web address] Not available 01/12/2023 16:40:11 02/08/2023 02/08/2023 Brief [...] answered. Time On Scene with Patient: 00:19:02 [email or web address] Not available 02/08/2023 19:24:30 Plan of Treatment Reminders Order Date Submit Date Provider Last Modified By Organization Details Last Modified Time Details Appointments None recorded. Lab None recorded. Referral None recorded. Procedures None recorded. Surgeries None recorded. Imaging None recorded. Medication Orders ketoconazol e 2 % topical cream 2022 023 [id number], [address] [facility] [place], [address], 3 19:23:18 doxycycline hyclate 100 mg capsule [address]/Pharmacy #[id number], [address] [facility] [place], [address], 3 14:59:03 doxycycline hyclate 100 mg tablet [address]/Pharmacy #[id number], [address] [facility] [place], [address], 3 14:59:08 Patient TargetsNo targets recorded. Patient Instructions Encounter Date Encounter Id Patient Instructions Last Modified By Organization Details Last Modified Time 01/02/2023 [id number] [facility] You were seen today for treatment [...] condition between 8am-10pm, please call [facility] at [phone] to help navigate your care. [email or web address] Not available 01/02/2023 17:10:35 01/12/2023 [id number] Thank you for yo ur visit with [facility] today. You were seen today for treatment [...] condition between 8am-10pm, please call [facility] at [phone] to help navigate your care. [email or web address] Not available 01/12/2023 14:58:29 02/08/2023 [id number] Thank you for yo ur visit with [employer] today. We cannot always find the exact [...] condition between 8am-10pm, please call [facility] at [phone] to help navigate your care. Please seek [...] in your condition between 8am-10pm, please call [facility] at [phone] to help navigate your care. [email or web address] Not available 02/08/2023 14:59:41 Reason for Referral None Reported. Procedures Surgical History Date Name Laterality Status Provider Name and Address Organization Details Recorded Time ligation of bilateral fallopian tubes completed Gretta Al NP [address], [place], [address], [place] [facility] 01/02/2023 17:05:51 excision of thymus completed Gretta Al NP [address], [place], [address], [place] [facility] 01/02/2023 17:06:13 Imaging Results None recorded. Procedure Notes None recorded. Medical Equipment None Reported. Allergies Allergen ID Allergen Name Allergen Category Reaction Reaction Severity Criticality Documentation Date Start Date Code Code System Note Provider Name and Address Organization Details Recorded Time [id number] Augmentin medicatio n Not available Not available Not available 01/02/2023 73453 2 RxNorm Gretta Al NP [address], [place], [address], [place] [facility] 3 17:03:40 134225 Levaquin medicatio n Not available Not available Not available 01/02/2023 84302 2 RxNorm Gretta Al NP [address], [place], [address], [place] [facility] 3 17:03:52 957822 acetamino phen / oxycodone medicatio n Not available Not available Not available 01/02/2023 12178 3 RxNorm Gretta Al NP [address], [place], [address], [place] [facility] 3 17:04:07 995655 oxycodone medicatio n Not available Not available Not available 01/02/2023 7804 RxNorm Gretta Al NP [address], [place], [address], [place] [facility] 3 [...] Not Available Not Available No t Available [facility] DIRECTED active Not Available Not Available [...] [degF] 120 mm[Hg] 66 mm[Hg] Not Available [facility] 3 17:09:27 Date Recorded Heart rate Respiratory rate Body temperature Oxygen saturation Oxygen saturation in Arterial blood by Pulse oximetry Inhaled oxygen flow rate Systolic blood pressure Diastolic blood pressure Provider Name and Address Organization Details Last Updated DateTime 3 92 /min 18 /min 98.2 [degF] 98 % 98 % 2 L/min 132 mm[Hg] 78 mm[Hg] Not Available [facility] 3 14:50:05 Date Recorded Heart rate Oxygen saturation Oxygen saturation in Arterial blood by Pulse oximetry Inhaled oxygen flow rate Body temperature Respiratory rate Systolic blood pressure Diastolic blood pressure Provider Name and Address Organization Details Last Updated DateTime 3 92 /min 97 % 97 % 1 L/min 97.9 [degF] 20 /min 116 mm[Hg] 70 mm[Hg] Not Available [facility] 3 15:02:11 Social History Question Answer Notes LastModified by Organizat ion Details LastModified Time Tobacco Smoking Status Former Smoker Gretta Al, PABLO [address], [place], [address], [place] [facility] 01/02/2023 17:07:37 Do You Have An Advance Directive? Yes [email or web address] Information not available 01/02/2023 What Is Your Code Status? Full Code [email or web address] Information not available 01/02/2023 Does This Patient Have A PCP? Yes [email or web address] Information not available 01/02/2023 Has The Patient Seen Their PCP In The Past 6 Months? Yes [email or web address] Information not available 01/02/2023 Sex: Unknown Functional Status Question Answer Note LastModified by Organizat ion Details LastModified Time Do you use any illicit or recreational drugs? No [email or web address] Information not available 01/02/2023 What is your level of alcohol consumption? None Information not available 01/02/2023 Mental Status None recorded. Family History Relationship Description Onset Age of this Age Resolved Age Notes LastModified by Organization Details LastModified Time Maternal Grandmother Malignant neoplastic disease Not available 2022 17:06:52 Maternal Grandfather Malignant neoplastic disease Not available 2022 17:06:52 Father Malignant neoplastic disease [email or web address] Not available 2022 17:07:05 Brother Malignant neoplastic disease [email or web address] Not available 2022 17:07:08 Mother Asthma [email or web address] Not available 0 01/02/2023 17:07:21 Medical History Condition Response Hypertension Y Osteoporosis Y Hypothyroidism Y COPD Y Asthma Y Gynecological HistoryNo gynecological history recorded. Obstetrics History GPAL:G 0 P 0 0 0 0 Past Encounters Encounter ID Performer Location Encounter Start Date Encounter Closed Date Diagnosis/Indication Diagnosis SNOMED-CT Code Diagnosis ICD10 Code Diagnosis Note [id number] Gretta Al NP [facility] [address] [place] [address] 01/02/2023 16:55:09 01/11/2023 09:02:01 Cellulitis [id number] L03.90 Status of condition: Acute. Testing/Re sults: Discussion : Pt is not able to take augmentin or keflex due to side effects. Will cover for MRSA with doxycyline due to appearance and immunocomp romised condition. discussed SE of doxycyline including gastritis and sun sensitivit y. Area outlined, advised if no improvemen t in 24-48 hours that she may need IV abx and to follow up with PCP/ possible ED. Plan, Medication Management & Follow-up recommenda tions:Doxy cyline BID x 7 daysFollow up if no improvemen t [id number] Gretta Al NP [facility] [address] [place] [address] 01/02/2023 17:04:32 01/03/2023 15:58:31 [id number] DIGNA Aiken [facility] [address] [facility] [place] [address] 01/12/2023 14:46:38 01/14/2023 18:22:59 Cellulitis [id number] L03.90 Status of condition: Acute. Testing/Re sults: n/a Discussion :Celluliti s has improved, wound is now scabbed, erythema almost resolved, no warmth on exam.keep the area clean and dry.ok to apply otc bacitracin as directed on the package.no further antibiotic s needed at this time. Plan, Medication Management & Follow-up recommenda tions:foll ow up with pcp in 5-7 days or sooner prn.go to the ER with worsening symptoms cp, sob, fever, leg pain, edema, increasing redness, drainage, increased pain, numbness, skin color or temp changes. Chronic ob structive pulmonary disease [id number] J44.9 Status of condition: Chronic. Testing/Re sults: O2 Discussion : Plan, Medication Management & Follow-up recommenda tions: [id number] Gretta Al NP [facility] [address] [facility] [place] [address] 02/08/2023 14:36:36 02/09/2023 15:15:30 Intertrigo of abdominal skin fold 710133902 L30.4 Status of condition: Acute. Testing/Re sults: Discussion :Intertrig o Carmen evident on exam due to obesity, sweating, excessive moisture. Advised to keep the area clean and dry and can apply cream twice daily for 2-3 weeks if needed can do up to 4 weeks. Advised not to apply topical steroids to this type of rash due to possibly exacerbati ng the itching and the rash. Can take OTC Tylenol if needed for pain. No suspicion of cellulitis at this time but did discuss if rash worsens or develops excoriatio ns or painful areas to follow up. Health Concerns Section Related Observation LastModified by Organization Detai ls LastModified Time None Recorded Concern Status LastModified by Organization Details LastModified Time None Recorded Advance Directives Directive Y: Payers Insurance Date Sequence Insurance Name Policy Number Policy Wick Covered Member ID Wick Member ID Guarantor Name 01/02/2023 1 *SELF PAY* Gladys Jasso [id number] Gladys Jasso 02/08/2023 2 [place] [facility] Gladys Jasso [id number] Gladys Jasso 02/13/2023 1 MEDICARE B-[place]: [facility] Gladys Jasso [id number] Gladys Jasso Notes Date Note Type Note [...] swelling to BLE. Gretta Al NP [address] [place], [address], [place] [facility] 01/02/2023 22:03:48 01/02/2023 text/html duplicate Gretta Al NP [address] [place], [address], [place] [facility] 01/02/2023 21:48:08 01/12/2023 text/html 62 y/o female known to new to provider with hx of Asthma, [...] denies any streaking erythema. DIGNA Aiken [address], [place], [address], [place] [facility] 01/12/2023 16:59:32 02/08/2023 text/html [...] area. Denies pain to the area. Gretta Al, PABLO [address], [place], [address], [place] [facility] 02/08/2023 19:24:40 OBGyn Episode No OBEpisode recorded.
--- OUTSIDE RECORDS SUMMARY | 2024-12-24 11:10 | XMS_ITS | Continuity of Care Document ---
Author Organization [facility] [address] [place] [address] Phone [phone] Care Team Providers Care Rehab Nurse Name Role Phone Emmanuel Merrill NP Care Team Information Student Ministry Pastor [phone] Problems Active Problems Provider Date Asthma Tee [...] Tee Pagan M.D. Onset: 07/03/2023 Osteoarthritis Tee Pagna M.D. Onset: Adrenal mass Tee Pagan M.D. Onset: Social History Type Date Description Comments Sex Female Sex Unknown Tobacco Use Start: Unknown End: [...] meals 300units M81.0 Magda Marinelli M.D. 12/12/2023 [id number] Tablets 1 by mouth every day 90tabs Tee Pagan M.D. 01/16/[address] Take 1 Capsule By Mouth Twice A Day Suzanna Aguilar MD Hydroxyzine [id number] Tablets Take 1 Tablet (25 MG) By Mouth 3 Times A Day as Needed For Itching Purnima Stock P.ASatya Lisinopril2.5mg Tablets Take 1 Tablet By Mouth Twice A Day [employer] P.ASatya Trazodone GWX14jz Tablets Take 2 Tablets By Mouth Every Day For 90 Days Mega Tijerina MD Ggresegxf777ff Tablets Take 1 Tablet By Mouth Twice A Day For 30 Days Mega Tijerina MD Qokmlshgd0wu Tablets Take 1 Tablet By Mouth Every Day AT Bedtime as Needed Purnima Stock PSatyaASatya Escitalopram Yoybmok78yp Tablets Take 1 Tablet By Mouth Every Day Purnima Stock P.ASatya Duloxetine OHQ02id Caps DR Part 1 tab by mouth [...] 3.9-4.9 Cortisol, Free, 24 HR Urine 02/09/2023 [facility] Cortisol, Quant 20 4 Ur Free Cortisol 37 5 Total Volume 550 Xgdut-Ff-Ttukr 02/09/2023 [facility] Creatinine, Urine MG/DL 160.6 mg/dL Creatinine Ur GM/24HR 0.9 GM/24HR (0.72-1.5) Period & Volume 02/09/2023 [facility] Urine Collection Period 24 HRS Volume 550 MLS Cortisol 02/05/2023 [facility] Cortisol 2.6 g/dL 6 TSH With Reflex To FT4 01/16/2023 [facility] TSH With Reflex To FT4 0.50 uIU/mL (0.4-4.2) FT4 By Direct D[facility] 01/16/2023 [facility] FT4 By [facility] 0.91 7 Free T3 01/16/2023 [facility] Free T3 2.7 pg/mL (2.3-5.0) 25Oh Vitamin D 01/16/2023 [facility] 25Oh Vitamin D 46.9 NG/ML (20-50) Free T4 01/16/2023 [facility] Free T4 0.82 ng/dL (0.70-1.80) 1 Test(s) 055559-Zjylm lucia,F,ug/L,U was developed and its performance characteristics determined by [facility]. It has not been cleared or approved by the Food and Drug Administration. 2 Test(s) 964593-Teobs Activity, Plasma was developed and its performance characteristics determined by [facility]. It has not been cleared or approved by the Food and Drug Administration. Test(s) 128403-Uuesvrvcnyt was developed and its performance characteristics determined by [facility]. It has not been cleared or approved by the Food and Drug Administration. Test(s) 662376-Aansicndmmtwtha, Pl; 081359-Lcnegnbivjnh, Pl was developed and its performance characteristics determined by [facility]. It has not been cleared or approved by the Food and Drug Administration. 3 Vitamin D deficiency has been defined by the Rogers of Medicine and an Endocrine Society practice guideline as a level of serum 25-OH vitamin D less than 20 ng/mL (1,2). The Endocrine Society went on to further define vitamin D insufficiency as a level between 21 and 29 ng/mL (2). 1. IOM (Rogers of Medicine). 2010. Dietary reference intakes for [...] developed and its performance characteristics determined by [facility]. It has not been cleared or approved by the Food and Drug Administration. Test performed at [address] [place] [address] 6 Reference Range: 6-10 am: 6.0-18.4 ug/dL 4-8 pm: 2.7-10.5 ug/dL 7 Unit: ng/dL (NOTE) This test was developed and its performance characteristics determined by [facility]. It has not been cleared or approved by the Food and Drug Administration. Reference Range: Pubertal Children and Adults: 0.8 - 1.7 Test performed by [facility], [address] [place] [address], [place] [address] Medical Devices Description No Information Available Encounters [...] DIGNA Pineda Plan of Treatment Future Appointment(s):* 02/13/2025 10:15 am - Domingo Winters NP at Main Office 09/23/2024 - DIGNA Perkins* R19.09 Adrenal mass * M81.0 Age-related osteoporosis without current pathological fracture * E04.1 Thyroid nodule Functional Status Description No Information Available Mental Status Description No Information Available Referrals Description No Information Available
== END 2024-12-24 11:25 | disposition home or self-care (01) ==
LOC: HO.PMC 10:33
PROVIDERS: PCP Nurse Practitioner; Visit Provider Internal Medicine
DX: M96.1 Postlaminectomy syndrome, not elsewhere classified (principal)
CPT/HCPCS: 99024

== ENCOUNTER → 2024-12-24 10:32 | Outpatient (BNVA) | payer MEDICARE, MEDICAID, SELFPAY | PROVIDERS: PCP Nurse Practitioner; Visit Provider Internal Medicine | DX: M96.1 Postlaminectomy syndrome, not elsewhere classified (principal); M54.30 Sciatica, unspecified side; Z98.890 Other specified postprocedural states | CPT/HCPCS: 99212 ==

== ENCOUNTER 2025-01-21 09:43 | Day surgery (SDC) | payer MEDICARE, MEDICAID, SELFPAY ==
--- OUTSIDE RECORDS SUMMARY | 2025-01-02 08:11 | XMS_ITS | Continuity of Care Document ---
Author Organization [facility] [address] [place] [address] Phone [phone] Care Team Providers Care Paper Latcher Name Role Phone Emmanuel Merrill NP Care Team Information Quilt Maker [phone] Problems Active Problems Provider Date Asthma Tee [...] meals 300units M81.0 Magda Marinelli M.D. 12/12/2023 [id number] Tablets 1 by mouth every day 90tabs Tee Pagan M.D. 01/16/[address] Take 1 Capsule By Mouth Twice A Day Suzanna Aguilar MD Hydroxyzine USP47wm Tablets Take 1 Tablet (25 MG) By Mouth 3 Times A Day as Needed For Itching Purnima Stock P.ASatya Lisinopril2.5mg Tablets Take 1 Tablet By Mouth Twice A Day Purnima Stock P.ASatya Trazodone KAD28it Tablets Take 2 Tablets By Mouth Every Day For 90 Days Mega Tijerina MD Pwrzvcqvl500fm Tablets Take 1 Tablet By Mouth Twice A Day For 30 Days Mega Tijerina MD Dwznpxcce4em Tablets Take 1 Tablet By Mouth Every Day AT Bedtime as Needed Purnima Stock PSatyaASatya Escitalopram Aobrfio67uh Tablets Take 1 Tablet By Mouth Every Day Purnima Stock P.ASatya Duloxetine CDY38ov Caps DR Part 1 tab by mouth [...] 3.9-4.9 Cortisol, Free, 24 HR Urine 02/09/2023 [facility] Cortisol, Quant 20 4 Ur Free Cortisol 37 5 Total Volume 550 Zwomr-Fh-Jfowg 02/09/2023 [facility] Creatinine, Urine MG/DL 160.6 mg/dL Creatinine Ur GM/24HR 0.9 GM/24HR (0.72-1.5) Period & Volume 02/09/2023 [facility] Urine Collection Period 24 HRS Volume 550 MLS Cortisol 02/05/2023 [facility] Cortisol 2.6 g/dL 6 TSH With Reflex To FT4 01/16/2023 [facility] TSH With Reflex To FT4 0.50 uIU/mL (0.4-4.2) FT4 By Direct Dialysis 01/16/2023 [facility] FT4 By [facility] Dialysis 0.91 7 Free T3 01/16/2023 [facility] Free T3 2.7 pg/mL (2.3-5.0) 25Oh Vitamin D 01/16/2023 [facility] 25Oh Vitamin D 46.9 NG/ML (20-50) Free T4 01/16/2023 [facility] Free T4 0.82 ng/dL (0.70-1.80) 1 Test(s) 279968-Vwbbm lucia,F,ug/L,U was developed and its performance characteristics determined by [facility]. It has not been cleared or approved by the Food and Drug Administration. 2 Test(s) 773403-Ebcxl Activity, Plasma was developed and its performance characteristics determined by [facility]. It has not been cleared or approved by the Food and Drug Administration. Test(s) 944129-Vsymugetcwu was developed and its performance characteristics determined by [facility]. It has not been cleared or approved by the Food and Drug Administration. Test(s) 263133-Qhwlpcvxoocsuak, Pl; 097853-Bablqrgxkctk, Pl was developed and its performance characteristics determined by [facility]. It has not been cleared or approved by the Food and Drug Administration. 3 Vitamin D deficiency has been defined by the [place] [employer] and an Endocrine Society practice guideline as a level of serum 25-OH vitamin D less than 20 ng/mL (1,2). The Endocrine Society went on to further define vitamin D insufficiency as a level between 21 and 29 ng/mL (2). 1. IOM ([place] [employer]). 2010. Dietary reference intakes for [...] developed and its performance characteristics determined by [facility]. It has not been cleared or approved by the Food and Drug Administration. Test performed at [address] [place] [address] 6 Reference Range: 6-10 am: 6.0-18.4 ug/dL 4-8 pm: 2.7-10.5 ug/dL 7 Unit: ng/dL (NOTE) This test was developed and its performance characteristics determined by [facility]. It has not been cleared or approved by the Food and Drug Administration. Reference Range: Pubertal Children and Adults: 0.8 - 1.7 Test performed by [facility], [address] [place] [address], [place] [address] Medical Devices Description No Information Available Encounters [...]
--- OUTSIDE RECORDS SUMMARY | 2025-01-02 08:11 | XMS_ITS | Data Portability ---
Author Organization [place] [facility] Address [address] [place] [address] Care Team Providers Care Marine Resource Economist Name Role Phone YULIVICTORIAKayyGHAZAL MONTES DE OCA [...] after care of this patient according to Replaced by [facility]'s infection prevention protocols. Not available 01/02/2023 22:00:13 01/12/2023 01/12/2023 Time [...] after care of this patient according to Replaced by [facility]'s infection prevention protocols. Not available 01/12/2023 16:40:11 02/08/2023 02/08/2023 Brief [...] e 2 % topical cream 2022 023 [id number], [address] [facility] [place], [address], 3 19:23:18 doxycycline hyclate 100 mg capsule [address]/Pharmacy #[id number], [address] [facility] [place], [address], 3 14:59:03 doxycycline hyclate 100 mg tablet [address]/Pharmacy #[id number], [address] [facility] [place], [address], 3 14:59:08 Patient TargetsNo targets recorded. Patient Instructions Encounter Date Encounter Id Patient Instructions Last Modified By Organization Details Last Modified Time 01/02/2023 [id number] [facility] You were seen today for treatment [...] condition between 8am-10pm, please call [facility] at [phone] to help navigate your care. [email or web address] Not available 01/02/2023 17:10:35 01/12/2023 [id number] Thank you for yo ur visit with [email or web address] today. You were seen today for treatment [...] condition between 8am-10pm, please call [facility] at [phone] to help navigate your care. Not available 01/12/2023 14:58:29 02/08/2023 [id number] Thank you for yo ur visit with [facility] today. We cannot always find the exact [...] condition between 8am-10pm, please call [facility] at [phone] to help navigate your care. Please seek [...] in your condition between 8am-10pm, please call Replaced by [facility] at [phone] to help navigate your care. [email or web address] Not available 02/08/2023 14:59:41 Reason for Referral None Reported. Procedures Surgical History Date Name Laterality Status Provider Name and Address Organization Details Recorded Time ligation of bilateral fallopian tubes completed Gretta Al NP [address], [place], [address], [place] [facility] 01/02/2023 17:05:51 excision of thymus completed Gretta Al NP [address], [place], [address], [place] [facility] 01/02/2023 17:06:13 Imaging Results None recorded. Procedure Notes None recorded. Medical Equipment None Reported. Allergies Allergen ID Allergen Name Allergen Category Reaction Reaction Severity Criticality Documentation Date Start Date Code Code System Note Provider Name and Address Organization Details Recorded Time [id number] Augmentin medicatio n Not available Not available Not available 01/02/2023 82379 2 RxNorm Gretta Al NP [address], [place], [address], [place] [facility] 3 17:03:40 475591 Levaquin medicatio n Not available Not available Not available 01/02/2023 30428 2 RxNorm Gretta Al NP [address], [place], [address], [place] [facility] 3 17:03:52 675600 acetamino phen / oxycodone medicatio n Not available Not available Not available 01/02/2023 86920 3 RxNorm Gretta Al NP [address], [place], [address], [place] [facility] 3 17:04:07 318101 oxycodone medicatio n Not available Not available Not available 01/02/2023 7804 RxNorm Gretta Al NP [address], [place], [address], [place] [facility] 3 [...] Available Not Available No t Available Michelle Sandra [facility] spacer DIRECTED active Not Available Not Available No t Available Tymlos 80 mcg/dose (3,120 mcg/1.56 mL) subcutaneou s pen injector active Not Available Not Available Not Available Vitals Date Recorded Oxygen saturation Oxygen saturation in Arterial blood by Pulse oximetry Inhaled oxygen flow rate Respiratory rate Heart rate Body temperature Systolic And Diastolic Provider Name and Address Organization Details Last Updated DateTime 3 99 % 99 % 2 L/min 18 /min 100 /min 98.6 [degF] 120/66 mm[Hg] Not Available [facility] 3 17:09:27 Date Recorded Heart rate Respiratory rate Body temperature Oxygen saturation Oxygen saturation in Arterial blood by Pulse oximetry Inhaled oxygen flow rate Systolic And Diastolic Provider Name and Address Organization Details Last Updated DateTime 3 92 /min 18 /min 98.2 [degF] 98 % 98 % 2 L/min 132/78 mm[Hg] Not Available [facility] 3 14:50:05 Date Recorded Heart rate Oxygen saturation Oxygen saturation in Arterial blood by Pulse oximetry Inhaled oxygen flow rate Body temperature Respiratory rate Systolic And Diastolic Provider Name and Address Organization Details Last Updated DateTime 3 92 /min 97 % 97 % 1 L/min 97.9 [degF] 20 /min 116/70 mm[Hg] Not Available [facility] 3 15:02:11 Social History Question Answer Notes LastModified by Optinuity ion Details LastModified Time Tobacco Smoking Status Former Smoker Gretta Al, PABLO [address] [place], [address], [place] [facility] 01/02/2023 17:07:37 Do You Have An Advance Directive? Yes [email or web address] Information not available 01/02/2023 What Is Your Code Status? Full Code [email or web address] Information not available 01/02/2023 Does This Patient Have A PCP? Yes [email or web address] Information not available 01/02/2023 Has The Patient Seen Their PCP In The Past 6 Months? Yes [email or web address] Information not available 01/02/2023 Sex: Unknown Functional Status Question Answer Note LastModified by Organizat ion Details LastModified Time Do you use any illicit or recreational drugs? No [email or web address] Information not available 01/02/2023 What is your level of alcohol consumption? None [email or web address] Information not available 01/02/2023 Mental Status None recorded. Family History Relationship Description Onset Age of this Age Resolved Age Notes LastModified by Organization Details LastModified Time Maternal Grandmother Malignant neoplastic disease [email or web address] Not available 2022 17:06:52 Maternal Grandfather Malignant neoplastic disease [email or web address] Not available 2022 17:06:52 Father Malignant neoplastic disease Not available 2022 17:07:05 Brother Malignant neoplastic disease Not available 2022 17:07:08 Mother Asthma [email or web address] Not available 0 01/02/2023 17:07:21 Medical History Condition Response COPD Y Hypothyroidism Y Asthma Y Hypertension Y Osteoporosis Y Gynecological HistoryNo gynecological history recorded. Obstetrics History GPAL:G 0 P 0 0 0 0 Past Encounters Encounter ID Performer Location Encounter Start Date Encounter Closed Date Diagnosis/Indication Diagnosis SNOMED-CT Code Diagnosis ICD10 Code Diagnosis Note [id number] Gretta Al NP [facility] [address] [place] [address] 01/02/2023 16:55:09 01/11/2023 09:02:01 Cellulitis 631182149 L03.90 Status of condition: Acute. Testing/Re sults: [...] 7 daysFollow up if no improvemen t [id number] Gretta Al NP [facility] [address] [place] [address] 01/02/2023 17:04:32 01/03/2023 15:58:31 [id number] DIGNA Aiken [facility] [address] [place] [address] 01/12/2023 14:46:38 01/14/2023 18:22:59 Cellulitis 743506988 L03.90 Status of condition: Acute. Testing/Re sults: [...] temp changes. Chronic ob structive pulmonary disease 99973117 J44.9 Status of condition: Chronic. Testing/Re sults: O2 Discussion : Plan, Medication Management & Follow-up recommenda tions: [id number] Gretta Al NP [facility] [address] [place] [address] 02/08/2023 14:36:36 02/09/2023 15:15:30 Intertrigo of abdominal skin fold 102692611 L30.4 Status of condition: Acute. Testing/Re sults: [...] Concerns Section Related Observation LastModified by Organization [place] [facility] LastModified Time None Recorded Concern Status LastModified by Organization Details LastModified Time None Recorded Advance Directives Directive Y: Payers Insurance Date Sequence Insurance Name Policy Number Policy Wick Covered Member ID Wick Member ID Guarantor Name 01/02/2023 1 *SELF PAY* Gladys Jasso [id number] Gladys Jasso 02/08/2023 2 [place] [facility] Gladys Jasso [id number] Gladys Jasso 02/13/2023 1 MEDICARE B-[place] [facility] Gladys Jasso [id number] Gladys Jasso Notes Date Note Type Note [...] to BLE. Gretta Al NP [address] [place], [address], [place] [facility] 01/02/2023 22:03:48 01/02/2023 text/html duplicate Gretta Al NP [address] [place], [address], [place] [facility] 01/02/2023 21:48:08 01/12/2023 text/html [...] streaking erythema. DIGNA Aiken [address], [place], [address], [place] [facility] 01/12/2023 16:59:32 02/08/2023 text/html [...] area. Gretta Al NP [address], [place], [address], [place] [facility] 02/08/2023 19:24:40 OBGyn Episode No OBEpisode recorded.
[2025-01-19 15:33] VITALS: BMI 37.3
--- NOTE | 2025-01-20 08:47 | HO.ANESPROP2 ---
Documented by User: Odalys Kovacs NP 01/20/25 08:49 HPI - Anesthesia Eval Consult details Narrative: 64yo F for Spinal Cord Stimulation Implant s/p Spinal Cord Stimulation Trial 11/2024 with MAC s/p foraminotomy 2023 with GA-ETT 7 s/p thymectomy 2022 - no hx Myesthenia - CT scan of the chest at [facility] 10/2024: It appears that the 16 mm left adrenal nodule stable and the postoperative changes are stable as well without any evidence of any recurrence of the thymoma. Follows [facility] Pulmo for COPD, FERCHO. Last office visit 09/2024 with chronic WEN - deconditioning r/t back pain. Plan for pulmo rehab after back pain addressed with spinal stim. CT scan of the chest at [facility]. It appears that the 6 mm nodule stable in the postoperative changes are stable as well without any evidence of any recurrence of the thymoma. PMFSH Active Problems Active Problems: All Active Problems Post laminectomy syndrome (Acute) Status post lumbar surgery (Acute) Pre-op chest exam (Acute) Chest pain (Acute) On supplemental oxygen therapy (Acute) Nocturnal hypoxemia (Acute) Fibromyalgia, primary (Acute) Spondylolisthesis, lumbar region (Acute) Dyspnea (Acute) Pulmonary nodules (Acute) Thymoma (Acute) FERCHO on CPAP (Acute) COPD (chronic obstructive pulmonary disease) (Acute) Past Medical History Medical History Hx of ovarian cyst Adrenal cyst Dyspnea GERD (gastroesophageal reflux disease) Depression Arthritis Fibromyalgia Pulmonary nodules Thymoma FERCHO on CPAP COPD (chronic obstructive pulmonary disease) Family History Family History Mother COPD (chronic obstructive pulmonary disease) Father Prostate CA Family history of problems with anesthesia: No Surgical History Surgical History History of surgery (~12/17/24) History of back surgery Hx of foot surgery History of esophagogastroduodenoscopy (EGD) H/O colonoscopy H/O thymectomy H/O parotidectomy H/O tubal ligation H/O sinus surgery History of Problems with Anesthesia: No Social History Social History Household Members: Spouse Are you a primary companion caregiver to a significant other at home: No Do you presently have visiting nurse or other home services: Yes (Meals on Wheels) Alcohol intake: never Patient Tobacco Use Status: Former Tobacco user Tobacco use type: Cigarette Cigarette Packs Per Day: 1 Years Smoked: 20 Use of substances other than those prescribed or required for medical reasons: No Have you been hit, kicked, punched, or otherwise hurt by someone within the past year? If so, by whom?: No Are you DNR?: No Advance Directives: No Advance Directives Information Provided: Yes Patient : No Meds Allergies Allergy/AdvReac Type Severity Reaction Status Date / Time levofloxacin (From Levaquin) Allergy Severe lost Verified 12/24/24 10:40 feeling in legs adhesive tape AdvReac Severe Blister Verified 12/24/24 10:40 clavulanic acid (From AdvReac Severe Gastrointestinal Verified 12/24/24 10:40 Augmentin) Upset hydromorphone (From Dilaudid) AdvReac Severe Nausea Verified 12/24/24 10:40 clarithromycin (From Biaxin) AdvReac Intermediate Nausea and Verified 12/24/24 10:40 Vomiting clindamycin AdvReac Intermediate Nausea and Verified 12/24/24 10:40 Vomiting doxycycline AdvReac Intermediate Nausea and Verified 12/24/24 10:40 Vomiting Sulfa (Sulfonamide AdvReac Intermediate Nausea and Verified 12/24/24 10:40 Antibiotics) Vomiting Home Medications ?Medication ?Instructions ?Recorded ?Confirmed ?Last Taken ?Type albuterol sulfate 90 mcg/actuation 2 mcg inhalation Q4H PRN Shortness 07/19/22 12/24/24 01/21/25 09:30 History aerosol inhaler Of Breath Or Wheezing escitalopram oxalate 10 mg tablet 10 mg PO DAILY 07/19/22 12/24/24 Unknown History lisinopril 2.5 mg tablet 2.5 mg PO BID 07/19/22 12/24/24 Unknown History modafinil 200 mg tablet (Provigil) 200 mg PO BID 07/19/22 12/24/24 Unknown History omeprazole 40 mg capsule,delayed 40 mg PO BID 07/19/22 12/24/24 01/21/25 07:00 History release trazodone 50 mg tablet 100 mg PO BEDTIME PRN Insomnia 07/19/22 12/24/24 Unknown History vitamin B complex and vitamin C 1 cap PO DAILY 07/19/22 12/24/24 Unknown History no.20-folic acid 1 mg capsule cholecalciferol (vitamin D3) 25 25 mcg PO DAILY 10/24/22 12/24/24 Unknown History mcg (1,000 unit) capsule hydroxyzine HCl 25 mg tablet 25 mg PO TID PRN itch 10/24/22 12/24/24 Unknown History cetirizine 10 mg tablet 10 mg PO DAILY 06/22/23 12/24/24 Unknown History lorazepam 1 mg tablet 1 mg PO DAILY PRN Anxiety 08/08/23 12/24/24 Unknown History CPAP (CPAP Machine/Device) 04/10/24 12/24/24 Unknown History Oxygen Home Use 04/10/24 12/24/24 Unknown History duloxetine 30 mg capsule,delayed 30 mg PO BID 12/17/24 12/24/24 Unknown History release Exam Height,Weight and Vital Signs: Height 5 ft Weight 86.636 kg Assessment and Plan Assessment Anesthesia Assessment: Chart Reviewed Final Anesthetic Review Family History of Problems with Anesthesia: No History of Problems with Anesthesia: No Documented by User: Priscilla Patel MD 01/21/25 11:00 [facility] Past Medical History Medical History Hx of ovarian cyst Adrenal cyst Dyspnea GERD (gastroesophageal reflux disease) Depression Arthritis Fibromyalgia Pulmonary nodules Thymoma FERCHO on CPAP COPD (chronic obstructive pulmonary disease) Family History Family History Mother COPD (chronic obstructive pulmonary disease) Father Prostate CA Surgical History Surgical History History of surgery (~12/17/24) History of back surgery Hx of foot surgery History of esophagogastroduodenoscopy (EGD) H/O colonoscopy H/O thymectomy H/O parotidectomy H/O tubal ligation H/O sinus surgery Social History Social History Household Members: Spouse Are you a primary companion caregiver to a significant other at home: No Do you presently have visiting nurse or other home services: Yes (Meals on Wheels) Alcohol intake: never Patient Tobacco Use Status: Former Tobacco user Tobacco use type: Cigarette Cigarette Packs Per Day: 1 Years Smoked: 20 Use of substances other than those prescribed or required for medical reasons: No Have you been hit, kicked, punched, or otherwise hurt by someone within the past year? If so, by whom?: No Are you DNR?: No Advance Directives: No Advance Directives Information Provided: Yes Patient : No Meds Allergies Allergy/AdvReac Type Severity Reaction Status Date / Time levofloxacin (From Levaquin) Allergy Severe lost Verified 12/24/24 10:40 feeling in legs adhesive tape AdvReac Severe Blister Verified 12/24/24 10:40 clavulanic acid (From AdvReac Severe Gastrointestinal Verified 12/24/24 10:40 Augmentin) Upset hydromorphone (From Dilaudid) AdvReac Severe Nausea Verified 12/24/24 10:40 clarithromycin (From Biaxin) AdvReac Intermediate Nausea and Verified 12/24/24 10:40 Vomiting clindamycin AdvReac Intermediate Nausea and Verified 12/24/24 10:40 Vomiting doxycycline AdvReac Intermediate Nausea and Verified 12/24/24 10:40 Vomiting Sulfa (Sulfonamide AdvReac Intermediate Nausea and Verified 12/24/24 10:40 Antibiotics) Vomiting Home Medications ?Medication ?Instructions ?Recorded ?Confirmed ?Last Taken ?Type albuterol sulfate 90 mcg/actuation 2 mcg inhalation Q4H PRN Shortness 07/19/22 12/24/24 01/21/25 09:30 History aerosol inhaler Of Breath Or Wheezing escitalopram oxalate 10 mg tablet 10 mg PO DAILY 07/19/22 12/24/24 Unknown History lisinopril 2.5 mg tablet 2.5 mg PO BID 07/19/22 12/24/24 Unknown History modafinil 200 mg tablet (Provigil) 200 mg PO BID 07/19/22 12/24/24 Unknown History omeprazole 40 mg capsule,delayed 40 mg PO BID 07/19/22 12/24/24 01/21/25 07:00 History release trazodone 50 mg tablet 100 mg PO BEDTIME PRN Insomnia 07/19/22 12/24/24 Unknown History vitamin B complex and vitamin C 1 cap PO DAILY 07/19/22 12/24/24 Unknown History no.20-folic acid 1 mg capsule cholecalciferol (vitamin D3) 25 25 mcg PO DAILY 10/24/22 12/24/24 Unknown History mcg (1,000 unit) capsule hydroxyzine HCl 25 mg tablet 25 mg PO TID PRN itch 10/24/22 12/24/24 Unknown History cetirizine 10 mg tablet 10 mg PO DAILY 06/22/23 12/24/24 Unknown History lorazepam 1 mg tablet 1 mg PO DAILY PRN Anxiety 08/08/23 12/24/24 Unknown History CPAP (CPAP Machine/Device) 04/10/24 12/24/24 Unknown History Oxygen Home Use 04/10/24 12/24/24 Unknown History duloxetine 30 mg capsule,delayed 30 mg PO BID 12/17/24 12/24/24 Unknown History release Exam Airway Mallampati Class: III TM Dist: >3cm Neck ROM: Full Denture: Upper Assessment and Plan Assessment Anesthesia Assessment: Anesthesia Plan Discussed Final Anesthetic Review NPO: Yes ASA Class: III Final Preanesthetic Review: No Changes in Pt Med Stat, Meds/Allgs Chart Reviewed, Consent Obtained/Reviewed and Anes Risks/Benef Reviewed Patient Risk: Intermediate Procedure Risk: Low Anesthetic Plan Anesthetic Plan: GA
[2025-01-21] VITALS (12 sets, daily range): BP systolic 102–153; BP diastolic 52–81; PULSE 70–101; RESP 13–20; TEMP 36.4–36.7; O2SAT 93–99; BMI 37.9
--- NOTE | ~2025-01-21 | FL_ITS ---
EXAMINATION: FL GUIDANCE ONLY HISTORY: SPINAL CORD STIM IMPLANT COMPARISON: None available. TECHNIQUE: Fluoroscopy time: 4 minutes, 9.3 seconds. Cumulative Dose: 60.027 mGy. DAP: 11.044 mGym2 Images: 3. FINDINGS: Fluoroscopic spot films of the spine demonstrate a stimulator in place with the tip of the lead at the superior endplate of T8. FL/FL guidance in OR IMPRESSION: Fluoroscopy during procedure. Please see procedure report for additional information. Electronically signed by: Dioni Crain MD 01/21/2025 03:20 PM EDT
[2025-01-21] MEDS: Lactated Ringers 1,000 ML 100 ML IVCONT (10:37)
[2025-01-21 11:59] LABS: MRSA Nasal PCR NEGATIVE (Negative); SA Nasal PCR POSITIVE (Negative)
--- NOTE | 2025-01-21 12:41 | MHC.SHP ---
Pre-Procedural Eval Section A - 24 Hr Update-Section A only Date of Service: 01/21/25 The patient is an INPATIENT: No Changes since office visit: Yes Cold of Flu in the past 2 weeks The patient has been examined within 24 hours of the surgical procedure. The History & Physical has been completed within 30 days and I have reviewed it.: Yes Section B - Complete if H&P > 30 days Chief Complaint: Postlaminectomy syndrome,Spondylolisthesis, lumbar Relevant Family History (Specify if Yes): No Relevant Social History: None Present Medications: see Short Stay Collaborative assessment Medical History: No relevant PMH History of Previous Operations: No relevant previous surgery Allergies: Allergies Allergy/AdvReac Type Severity Reaction Status Date / Time levofloxacin (From Levaquin) Allergy Severe lost Verified 12/24/24 10:40 feeling in legs adhesive tape AdvReac Severe Blister Verified 12/24/24 10:40 clavulanic acid (From AdvReac Severe Gastrointestinal Verified 12/24/24 10:40 Augmentin) Upset hydromorphone (From Dilaudid) AdvReac Severe Nausea Verified 12/24/24 10:40 clarithromycin (From Biaxin) AdvReac Intermediate Nausea and Verified 12/24/24 10:40 Vomiting clindamycin AdvReac Intermediate Nausea and Verified 12/24/24 10:40 Vomiting doxycycline AdvReac Intermediate Nausea and Verified 12/24/24 10:40 Vomiting Sulfa (Sulfonamide AdvReac Intermediate Nausea and Verified 12/24/24 10:40 Antibiotics) Vomiting Review of Systems Sugical H&P ROS: Negative: Constitution, Cardiovascular and Respiratory Exam Surgical H&P Exam: Normal: HEENT, Normal: Heart and Normal: Lungs Plan Diagnosis/Plan: Unchanged I have reviewed the history and physical and performed a pertinent physical examination on my patient. No changes have occurred unless specified. Time Spent With Patient Time: Total time managing care of this patient today ____ minutes.
--- NOTE | 2025-01-21 12:42 | P.BOP_ITS ---
Brief Operative Note Date of Service: 01/21/25 Pre-op diagnosis: Post-laminectomy syndrome Post-op diagnosis: same Procedure: Lumbar spinal cord stimulator implant Implants: [employer] WaveWriter Alpha IPG & leadsr Surgeon: rPince Corrigan MD Anesthesia: MAC Was an Marine Diesel Technician used for this Procedure?: No Estimated blood loss (mL): 20 Pathology: none sent Condition: stable Disposition: PACU
--- NOTE | 2025-01-21 12:43 | W.PM.OPN ---
Operative Note Operative Note Date of Service: 01/21/25 Narrative: Preoperative Diagnosis: Postlaminectomy Syndrome Postoperative Diagnosis: Same Procedure: Lumbar SCS Implant After proper identification, the patient was brought to the operating room. After prone positioning, patient was induced under general anesthesia. Care was taken during positioning to protect and pad all pressure points. Cefazolin 2gm was given as preoperative antibiotic prophylaxis. The back was prepped and draped in the usual sterile fashion using Chloroprep. The fluoroscope was sterilely draped and brought into field, the vertebral target and the T12/L1 interspace was localized with fluoroscopy. A 6 cm incision was then made in the midline back with a 15 blade between the L1 and L2 spinous processes. Electrocautery was used to dissect down to the prevertebral fascia. Two 14-gauge introducer Epimed needles were advanced using AP and contralateral oblique fluoroscopy views to the target interspace on either side of the L1 spinous process. Upon loss of resistance, a flexible stylet was advanced and verified to be in the epidural space.? The electrodes were then threaded up to the top of T8 vertebral body. With the needles covering the leads, we placed 2 sets of Tycron sutures per electrode for the anchor stitches. We then backed out the needle under live fluoroscopy, verifying that the electrodes were in the correct position and we then used the locking anchors to secure the electrodes down to the prevertebral fascia, tying them down with the Tycron sutures. At this point, a pocket for the generator was made in the right iliac fossa. With the skin and subcutaneous tissues anesthetized with 0.25% bupivicaine with 1:200,000 epinephrine and 1% lidocaine, a horizontal 2-inch incision was made using a 15 blade and combination of sharp dissection, blunt dissection and electrocautery was used. A pocket was created about half an inch below the skin. The pocket was then irrigated with normal saline containing vancomycin. Hemostasis was attained with electrocautery. We then tunneled the electrodes from the back into the pocket using the tunneling device. The electrodes were then connected to the generator. Two Tycron sutures were thrown across the floor of the pocket and through the medial and middle anchors to hold of the generator. After interrogation with impedance check the generator was placed into the subcutaneous pocket and the anchoring sutures tied. Care was taken not to get fluid in the generator connector block. The excess lead was closed beneath the generator creating a loop of strain relief as well. The neurostimulator generator was placed parallel to the skin at a depth of half an inch along for successful telemetry and impedence. The pocket was reirrigated and closed with the generator name facing out. Final electronic analysis was performed to ensure proper functioning. Positioning of the leads were rechecked and confirmed with fluoroscopy and images saved. Both incisions were closed with a fascial layer of 2-0 Vicryl sutures and deep dermal layer with 3-0 Vicryl sutures. We then secured the incision with Dermabond, steristrips, gauze, ABD dressing and medipore tape over both incisions. The patient tolerated the procedure well. The patient was then flipped back into the supine position, woken up and brought to the PACU in stable condition. Complications: None EBL: 20 mL
== END 2025-01-21 17:55 | disposition home or self-care (01) ==
PROVIDERS: Registered Nurse Emergency; PCP Nurse Practitioner; Visit Provider Internal Medicine
PROC: (CPT 63685; principal; 2025-01-21 12:00)
DX: M96.1 Postlaminectomy syndrome, not elsewhere classified (principal); M43.16 Spondylolisthesis, lumbar region; M19.90 Unspecified osteoarthritis, unspecified site; M79.7 Fibromyalgia; G47.33 Obstructive sleep apnea (adult) (pediatric); J44.9 Chronic obstructive pulmonary disease, unspecified; R91.8 Other nonspecific abnormal finding of lung field; K21.9 Gastro-esophageal reflux disease without esophagitis; L23.1 Allergic contact dermatitis due to adhesives; Z79.51 Long term (current) use of inhaled steroids; Z99.81 Dependence on supplemental oxygen; Z99.89 Dependence on other enabling machines and devices; Z79.899 Other long term (current) drug therapy; Z88.1 Allergy status to other antibiotic agents; Z88.2 Allergy status to sulfonamides; Z88.5 Allergy status to narcotic agent; Z98.890 Other specified postprocedural states; Z87.891 Personal history of nicotine dependence
CPT/HCPCS: 63685; 63650 ×2; 87640; 87641; C1778; C1787; C1820; C1889; J0690; J1100; J2003; J2250; J2405; J2704; J3010; J3374

== ENCOUNTER → 2025-01-21 09:43 | Outpatient (BNV) | payer MEDICARE, MEDICAID, SELFPAY | PROVIDERS: PCP Nurse Practitioner; Visit Provider Internal Medicine | DX: M96.1 Postlaminectomy syndrome, not elsewhere classified (principal) | CPT/HCPCS: 63650; 63685 ==

== ENCOUNTER 2025-01-23 11:37 | Outpatient (AMB) | payer MEDICARE, MEDICAID, SELFPAY ==
--- OUTSIDE RECORDS SUMMARY | 2025-01-23 11:38 | XMS_ITS | Continuity of Care Document ---
Author Organization [facility] [address] [place] [address] Phone [phone] Care Team Providers Care Asbestos Shingle Inspector Name Role Phone Emmanuel Merrill NP Care Team Information Kiln Remover [phone] Problems Active Problems Provider Date Asthma Tee [...] End: Unknown Patient is a former smoker Allergies and [...] meals 300units M81.0 Magda Marinelli M.D. 12/12/2023 [id number] Tablets 1 by mouth every day 90tabs Tee Pagan M.D. 01/16/[id number] Take 1 Capsule By Mouth Twice A Day Suzanna Aguilar MD Hydroxyzine NJM60cp Tablets Take 1 Tablet (25 MG) By Mouth 3 Times A Day as Needed For Itching Purnima Stock P.ASatya Lisinopril2.5mg Tablets Take 1 Tablet By Mouth Twice A Day [employer] P.A. Trazodone DMP53ou Tablets Take 2 Tablets By Mouth Every Day For 90 Days Mega Tijerina MD Srdbtkiyy779iz Tablets Take 1 Tablet By Mouth Twice A Day For 30 Days Mega Tijerina MD Fquokrrfb7ch Tablets Take 1 Tablet By Mouth Every Day AT Bedtime as Needed [employer] P.[employer]. Escitalopram Uccrakr98dq Tablets Take 1 Tablet By Mouth Every Day P[employer] P.A. Duloxetine BRH78id Caps DR Part 1 tab by mouth [...] 3.9-4.9 Cortisol, Free, 24 HR Urine 02/09/2023 [facility] Cortisol, Quant 20 4 Ur Free Cortisol 37 5 Total Volume 550 Pfprw-Kv-Nqhxb 02/09/2023 [facility] Creatinine, Urine MG/DL 160.6 mg/dL Creatinine Ur GM/24HR 0.9 GM/24HR (0.72-1.5) Period & Volume 02/09/2023 [facility] Urine Collection Period 24 HRS Volume 550 MLS Cortisol 02/05/2023 [facility] Cortisol 2.6 g/dL 6 TSH With Reflex To FT4 01/16/2023 [facility] TSH With Reflex To FT4 0.50 uIU/mL (0.4-4.2) FT4 By Direct Dialysis 01/16/2023 [facility] FT4 By Direct Dialysis 0.91 7 Free T3 01/16/2023 [facility] Free T3 2.7 pg/mL (2.3-5.0) 25Oh Vitamin D 01/16/2023 [facility] 25Oh Vitamin D 46.9 NG/ML (20-50) Free T4 01/16/2023 [facility] Free T4 0.82 ng/dL (0.70-1.80) 1 Test(s) 195906-Kyjys lucia,F,ug/L,U was developed and its performance characteristics determined by [facility]. It has not been cleared or approved by the Food and Drug Administration. 2 Test(s) 063474-Ufkda Activity, Plasma was developed and its performance characteristics determined by [facility]. It has not been cleared or approved by the Food and Drug Administration. Test(s) 585512-Viyftcdfnve was developed and its performance characteristics determined by [facility]. It has not been cleared or approved by the Food and Drug Administration. Test(s) 128479-Xhkmyypwxnwcvxk, Pl; 758590-Zyysqyaknpma, Pl was developed and its performance characteristics determined by [facility]. It has not been cleared or approved by the Food and Drug Administration. 3 Vitamin D deficiency has been defined by the [place] of [employer] and an Endocrine Society practice guideline as a level of serum 25-OH vitamin D less than 20 ng/mL (1,2). The Endocrine Society went on to further define vitamin D insufficiency as a level between 21 and 29 ng/mL (2). 1. IOM ([place] of [employer]). 2010. Dietary reference intakes for [...] developed and its performance characteristics determined by [facility]. It has not been cleared or approved by the Food and Drug Administration. Test performed at [address] [address] 6 Reference Range: 6-10 am: 6.0-18.4 ug/dL 4-8 pm: 2.7-10.5 ug/dL 7 Unit: ng/dL (NOTE) This test was developed and its performance characteristics determined by [facility]. It has not been cleared or approved by the Food and Drug Administration. Reference Range: Pubertal Children and Adults: 0.8 - 1.7 Test performed by [email or web address], [facility] [facility], [place] [address] Medical Devices Description No Information Available Encounters [...]
--- NOTE | 2025-01-23 11:42 | A.OFFVIS_ITS ---
Vital Signs 01/23/25 11:43 Height 5 ft Weight 196 lb BMI 38.3 BP 133/63 Blood Pressure Location Lt brachial Position Sitting Respiration 20 Pulse 88 Pulse Source Pulse Oximeter Pulse Oximetry (%) 97 Oxygen Delivery Method Room Air Intake Visit Reasons: Follow Up/Pain After Procedure Intake Note: 04/03 pain. Pt states pain started yesterday morning, nothing aggravated it. Pain is mostly in incision area. and binding is causing irratation. Instructor Extension Work Required: No Allergies levofloxacin (From Levaquin) Allergy (Severe, Verified 01/23/25 11:41) lost feeling in legs adhesive tape Adverse Reaction (Severe, Verified 01/23/25 11:41) Blister clavulanic acid (From Augmentin) Adverse Reaction (Severe, Verified 01/23/25 11:41) Gastrointestinal Upset hydromorphone (From Dilaudid) Adverse Reaction (Severe, Verified 01/23/25 11:41) Nausea clarithromycin (From Biaxin) Adverse Reaction (Intermediate, Verified 01/23/25 11:41) Nausea and Vomiting clindamycin Adverse Reaction (Intermediate, Verified 01/23/25 11:41) Nausea and Vomiting doxycycline Adverse Reaction (Intermediate, Verified 01/23/25 11:41) Nausea and Vomiting Sulfa (Sulfonamide Antibiotics) Adverse Reaction (Intermediate, Verified 01/23/25 11:41) Nausea and Vomiting HPI HPI Follow Up/Pain After Procedure: Details: History of Present Illness The patient is a 64-year-old female presenting with pain management concerns r elated to fibromyalgia and sciatica. The patient reports that the binding used for support is causing significant discomfort, described as horrendous, with pressure exacerbating the pain, particularly when attempting to move or sit. The patient experiences itching under the binding, which she describes as severe, although no visible skin eruptions are noted. The patient has been using oxycodone for pain relief, which provides some relief but does not last long enough. She has a history of fibromyalgia, which contributes to her heightened pain sensitivity, and sciatica, which has been more pronounced recently compared to previous trials where she experienced minimal pain. The patient has been taking hydroxyzine and Zyrtec for itching, but these have not been effective in alleviating her symptoms. Pain Description - Onset: Pain exacerbated by binding and pressure, particularly when moving or sitting. - Quality: Described as horrendous, with significant discomfort. - Location: Primarily associated with fibromyalgia and sciatica. - Exacerbating Factors: Binding and pressure increase pain. - Relieving Factors: Oxycodone provides temporary relief. Physical Exam - Skin: No eruptions or rashes observed, tenderness to palpation overlying the IPG incision site. Pain Management - Affect: Pain is impacting daily activities and causing significant discomfort. - Analgesia: Currently using oxycodone, which provides temporary relief. - Adverse Effects: Itching under the binding, not alleviated by antihistamines. - Activities of Daily Living: Pain interferes with movement and sitting. - Aberrant Drug Related Behaviors: None reported. [facility] Medical History Hx of ovarian cyst Adrenal cyst Dyspnea GERD (gastroesophageal reflux disease) Depression Arthritis Fibromyalgia Pulmonary nodules Thymoma FERCHO on CPAP COPD (chronic obstructive pulmonary disease) Surgical History History of surgery (~12/17/24) History of back surgery Hx of foot surgery History of esophagogastroduodenoscopy (EGD) H/O colonoscopy H/O thymectomy H/O parotidectomy H/O tubal ligation H/O sinus surgery Family History Mother COPD (chronic obstructive pulmonary disease) Father Prostate [place] Social History Household Members: Spouse Are you a primary rental boats caretaker to a significant other at home: No Do you presently have visiting nurse or other home services: Yes (Meals on Wheels) Alcohol intake: never Patient Tobacco Use Status: Former Tobacco user Tobacco use type: Cigarette Cigarette Packs Per Day: 1 Years Smoked: 20 Physical Exam Vital Signs: Last Vital Signs Pulse 88 01/23/25 11:43 Resp 20 01/23/25 11:43 BP 133/63 01/23/25 11:43 Pulse Ox 97 01/23/25 11:43 Oxygen Delivery Method Room Air 01/23/25 11:43 BMI result Body Mass Index 38.3 Assessment & Plan Assessment & Plan (1) Post laminectomy syndrome: Code(s): M96.1 - Postlaminectomy syndrome, not elsewhere classified Category: Medical Plan Plan - Continue oxycodone for pain management, with refill to last a week. - Modify the binder by cutting it to reduce discomfort and pressure. - Consider wearing the binder over clothing to minimize skin irritation. - Alternate between Zyrtec and Benadryl for itching relief. - Follow-up if symptoms worsen or do not improve. Patient was informed and verbally consented to the use of an ambient scribe for clinic note documentation during this visit. Discussion Notes I discussed with the patient the current management of her pain, including the use of oxycodone and the potential modifications to her binder to alleviate discomfort. We also reviewed the use of antihistamines for itching and the importance of follow-up if symptoms do not improve. Patient Instructions - Take oxycodone as prescribed for pain relief. - Modify the binder by cutting it to reduce discomfort. - Wear the binder over clothing to prevent skin irritation. - Use Zyrtec or Benadryl for itching relief. - Return for follow-up if symptoms worsen or do not improve. Medications: New oxycodone-acetaminophen 5-325 mg Partial Fill upon patient request. 1 tab PO Q8H PRN 20 tabs 0RF pain Coding Level of Care Code Est Pt Level 3 (40770) Diagnoses Post laminectomy syndrome M96.1
[2025-01-23 11:43] VITALS: BP 133/63; PULSE 88; RESP 20; O2SAT 97; BMI 38.3
== END 2025-01-23 12:37 | disposition home or self-care (01) ==
PROVIDERS: PCP Nurse Practitioner; Visit Provider Internal Medicine
DX: M96.1 Postlaminectomy syndrome, not elsewhere classified (principal)
CPT/HCPCS: 99024

== ENCOUNTER → 2025-01-23 11:37 | Outpatient (BNVA) | payer MEDICARE, MEDICAID, SELFPAY | PROVIDERS: PCP Nurse Practitioner; Visit Provider Internal Medicine | DX: M96.1 Postlaminectomy syndrome, not elsewhere classified (principal); Z79.891 Long term (current) use of opiate analgesic | CPT/HCPCS: 99212 ==

== ENCOUNTER 2025-01-28 09:43 | Outpatient (AMB) | payer MEDICARE, MEDICAID, SELFPAY ==
--- NOTE | 2025-01-28 09:57 | MHC.OFFVIS ---
Vital Signs 01/28/25 09:59 Height 5 ft Weight 189 lb BMI 36.9 BP 119/56 L Blood Pressure Location Lt brachial Position Sitting Respiration 16 Pulse 91 Pulse Source Pulse Oximeter Pulse Oximetry (%) 95 Oxygen Delivery Method Room Air Intake Visit Reasons: S/p Dolliver Sci SCS Implant 01/21/25 Elastic Attacher Coverstitch Required: No Accompanied by: Spouse Allergies levofloxacin (From Levaquin) Allergy (Severe, Verified 02/06/25 10:19) lost feeling in legs adhesive tape Adverse Reaction (Severe, Verified 02/06/25 10:19) Blister clavulanic acid (From Augmentin) Adverse Reaction (Severe, Verified 02/06/25 10:19) Gastrointestinal Upset hydromorphone (From Dilaudid) Adverse Reaction (Severe, Verified 02/06/25 10:19) Nausea clarithromycin (From Biaxin) Adverse Reaction (Intermediate, Verified 02/06/25 10:19) Nausea and Vomiting clindamycin Adverse Reaction (Intermediate, Verified 02/06/25 10:19) Nausea and Vomiting doxycycline Adverse Reaction (Intermediate, Verified 02/06/25 10:19) Nausea and Vomiting Sulfa (Sulfonamide Antibiotics) Adverse Reaction (Intermediate, Verified 02/06/25 10:19) Nausea and Vomiting Medication List - Last Reconciled 01/28/25 by Allyn Meyer LPN albuterol sulfate 90 mcg/actuation 2 mcg inhalation Q4H PRN B complex and C 20-folic acid 1 mg 1 cap PO DAILY baclofen 10 mg PO TID 30 days cetirizine 10 mg PO DAILY cholecalciferol (vitamin D3) 25 mcg PO DAILY CPAP (CPAP Machine/Device) As directed duloxetine 30 mg PO BID escitalopram oxalate 10 mg PO DAILY fluticasone propionate 50 mcg/actuation 2 sprays intranasal DAILY 30 days nfphzziadcq-ohnfcstqo-kgixabmj 200-62.5-25 mcg (Trelegy Ellipta) 1 inh inhalation DAILY 30 days gabapentin 300 mg PO TID 30 days hydroxyzine HCl 25 mg PO TID PRN inhalational spacing device (Aerochamber MV spacer) As directed lisinopril 2.5 mg PO BID lorazepam 1 mg PO DAILY PRN modafinil (Provigil) 200 mg PO BID omeprazole 40 mg PO BID oxycodone-acetaminophen 5-325 mg 1 tab PO Q8H PRN Oxygen Home Use As directed trazodone 100 mg PO BEDTIME PRN HPI HPI S/p Dolliver Sci SCS Implant 01/21/25: Details: History of Present Illness The patient is a 64-year-old female presenting with a follow-up on her spinal cord stimulator implant. She reports no significant changes since the last visit, although she experiences sweating at night which causes the bandages to loosen, leading to itching at the incision site. The patient describes her leg pain as having worsened since the reprogramming of the device, with pain radiating down the entire leg, although it is not as severe as before the trial period. During the trial, her pain was minimal, but recently she experienced significant discomfort. The incision site remains tender, particularly when pressure is applied, such as when sitting in a car seat. The tenderness is expected to improve over time, and the patient is advised to continue wearing the binder for another week. Pain Description - Onset and Timing: Pain worsened since reprogramming, significant discomfort noted recently - Quality and Character: Pain radiates down the entire leg - Exacerbating Factors: Pressure on the incision site, such as sitting in a car seat - Relieving Factors: None explicitly mentioned - Interference with Activities: Pain impacts comfort, particularly when sitting Physical Exam - Back: Incisions well healed, tenderness to palpation at the incision site, no redness or discharge Pain Management - Affect: Patient reports feeling miserable due to pain - Analgesia: Current pain levels have increased since reprogramming, goal is to achieve pain relief similar to the trial period - Adverse Effects: Itching from gabapentin, weight gain from pregabalin - Activities of Daily Living: Pain impacts comfort, particularly when sitting - Aberrant Drug Related Behaviors: None reported PFSH Medical History Hx of ovarian cyst Adrenal cyst Dyspnea GERD (gastroesophageal reflux disease) Depression Arthritis Fibromyalgia Pulmonary nodules Thymoma FERCHO on CPAP COPD (chronic obstructive pulmonary disease) Surgical History (Updated 02/17/25 @ 08:05 by Prince Corrigan MD) History of surgery (~12/17/24) History of back surgery Hx of foot surgery History of esophagogastroduodenoscopy (EGD) H/O colonoscopy H/O thymectomy H/O parotidectomy H/O tubal ligation H/O sinus surgery Family History Mother COPD (chronic obstructive pulmonary disease) Father Prostate [place] Social History Household Members: Spouse Are you a primary memory care program resident to a significant other at home: No Do you presently have visiting nurse or other home services: Yes (Meals on Wheels) Alcohol intake: never Patient Tobacco Use Status: Former Tobacco user Tobacco use type: Cigarette Cigarette Packs Per Day: 1 Years Smoked: 20 Physical Exam Vital Signs: Last Vital Signs Pulse 91 01/28/25 09:59 Resp 16 01/28/25 09:59 BP 119/56 L 01/28/25 09:59 Pulse Ox 95 01/28/25 09:59 Oxygen Delivery Method Room Air 01/28/25 09:59 BMI result Body Mass Index 36.9 Assessment & Plan Assessment & Plan (1) Post laminectomy syndrome: Code(s): M96.1 - Postlaminectomy syndrome, not elsewhere classified Category: Medical (2) S/P insertion of spinal cord stimulator: Code(s): Z96.89 - Presence of other specified functional implants Category: Surgical Plan Plan - Continue wearing the binder for another week to support the incision site. - Reprogramming of the spinal cord stimulator was performed to improve coverage of right leg pain. - Patient advised to avoid showering until Sunday next week to allow for proper healing of the incision site. - Monitor response to today's reprogramming at the next visit. Patient was informed and verbally consented to the use of an ambient scribe for clinic note documentation during this visit. Discussion Notes I discussed with the patient the current status of her spinal cord stimulator implant and the recent reprogramming to improve pain coverage. We reviewed the importance of continuing to wear the binder for another week and avoiding showering until Sunday next week to ensure proper healing of the incision site. The patient was informed that we will assess the response to today's reprogramming at the next visit. Patient Instructions - Continue wearing the binder for another week. - Avoid showering until Sunday next week. - Monitor any changes in pain and report them at the next visit. Coding Level of Care Code Est Pt Level 3 (01028) Diagnoses Post laminectomy syndrome M96.1 S/P insertion of spinal cord stimulator Z96.89
[2025-01-28 09:59] VITALS: BP 119/56; PULSE 91; RESP 16; O2SAT 95; BMI 36.9
--- OUTSIDE RECORDS SUMMARY | 2025-01-28 10:09 | XMS_ITS | Continuity of Care Document ---
Author Organization [facility] [address] [place] [address] Phone [phone] Care Team Providers Care Scientific Specialist Name Role Phone Emmanuel Merrill NP Care Team Information Window Shade Installer [phone] Problems Active Problems Provider Date Asthma Tee [...] meals 300units M81.0 Magda Marinelli M.D. 12/12/2023 [id number] Tablets 1 by mouth every day 90tabs Tee Pagan M.D. 01/16/[id number] Take 1 Capsule By Mouth Twice A Day Suzanna Aguilar MD Hydroxyzine [id number] Tablets Take 1 Tablet (25 MG) By Mouth 3 Times A Day as Needed For Itching Purnima Stock P.ASatya Lisinopril2.5mg Tablets Take 1 Tablet By Mouth Twice A Day Purnima Stock P.A. Trazodone [id number] Tablets Take 2 Tablets By Mouth Every Day For 90 Days Mega Tijerina MD [id number] Tablets Take 1 Tablet By Mouth Twice A Day For 30 Days Mega Tijerina MD Jlekfvzwj6dz Tablets Take 1 Tablet By Mouth Every Day AT Bedtime as Needed Purnima Stock P.A. Escitalopram Kblhhzb54uz Tablets Take 1 Tablet By Mouth Every Day Purnima Stock P.A. Duloxetine [id number] Caps DR Part 1 tab by mouth [...] 3.9-4.9 Cortisol, Free, 24 HR Urine 02/09/2023 [facility] Cortisol, Quant 20 4 Ur Free Cortisol 37 5 Total Volume 550 Vhdrx-Dy-Grvtr 02/09/2023 [facility] Creatinine, Urine MG/DL 160.6 mg/dL Creatinine Ur GM/24HR 0.9 GM/24HR (0.72-1.5) Period & Volume 02/09/2023 [facility] Urine Collection Period 24 HRS Volume 550 MLS Cortisol 02/05/2023 [facility] Cortisol 2.6 g/dL 6 TSH With Reflex To FT4 01/16/2023 [facility] TSH With Reflex To FT4 0.50 uIU/mL (0.4-4.2) FT4 By Direct Dialysis 01/16/2023 [facility] FT4 By Direct Dialysis 0.91 7 Free T3 01/16/2023 [facility] Free T3 2.7 pg/mL (2.3-5.0) 25Oh Vitamin D 01/16/2023 [facility] 25Oh Vitamin D 46.9 NG/ML (20-50) Free T4 01/16/2023 [facility] Free T4 0.82 ng/dL (0.70-1.80) 1 Test(s) 952758-Oooom lucia,F,ug/L,U was developed and its performance characteristics determined by [facility]. It has not been cleared or approved by the Food and Drug Administration. 2 Test(s) 115871-Qjtdz Activity, Plasma was developed and its performance characteristics determined by [facility]. It has not been cleared or approved by the Food and Drug Administration. Test(s) 166661-Djzjfujncka was developed and its performance characteristics determined by [facility]. It has not been cleared or approved by the Food and Drug Administration. Test(s) 841662-Thjmmeqetzuuikr, Pl; 605830-Nxqvkemjsrgu, Pl was developed and its performance characteristics determined by [facility]. It has not been cleared or approved by the Food and Drug Administration. 3 Vitamin D deficiency has been defined by the [place] of [employer] and an Endocrine Society practice guideline as a level of serum 25-OH vitamin D less than 20 ng/mL (1,2). The Endocrine Society went on to further define vitamin D insufficiency as a level between 21 and 29 ng/mL (2). 1. IOM ([place] of [employer]). 2010. Dietary reference intakes for [...] developed and its performance characteristics determined by [facility]. It has not been cleared or approved by the Food and Drug Administration. Test performed at [address] [address] 6 Reference Range: 6-10 am: 6.0-18.4 ug/dL 4-8 pm: 2.7-10.5 ug/dL 7 Unit: ng/dL (NOTE) This test was developed and its performance characteristics determined by [facility]. It has not been cleared or approved by the Food and Drug Administration. Reference Range: Pubertal Children and Adults: 0.8 - 1.7 Test performed by [facility], [facility], [place] [address] Medical Devices Description No Information Available Encounters [...]
== END 2025-01-28 10:42 | disposition home or self-care (01) ==
LOC: HO.PMC 09:44
PROVIDERS: PCP Nurse Practitioner; Visit Provider Internal Medicine
DX: M96.1 Postlaminectomy syndrome, not elsewhere classified (principal); Z96.89 Presence of other specified functional implants
CPT/HCPCS: 99024

== ENCOUNTER → 2025-01-28 09:43 | Outpatient (BNVA) | payer MEDICARE, MEDICAID, SELFPAY | PROVIDERS: PCP Nurse Practitioner; Visit Provider Internal Medicine | DX: M96.1 Postlaminectomy syndrome, not elsewhere classified (principal); Z96.82 Presence of neurostimulator | CPT/HCPCS: 99212 ==

== ENCOUNTER 2025-02-06 09:33 | Outpatient (AMB) | payer MEDICARE, MEDICAID, SELFPAY ==
--- OUTSIDE RECORDS SUMMARY | 2025-02-06 09:42 | XMS_ITS | Continuity of Care Document ---
Author Organization [facility] [address] [facility] [address] [place] [address] Phone [phone] Care Team Providers Care Paper Goods Machine Set Up Operator Name Role Phone Emmanuel Merrill NP Care Team Information Button Decorating Machine Operator [phone] Problems Active Problems Provider Date Asthma Tee [...] meals 300units M81.0 Magda Marinelli M.D. 12/12/2023 [id number] Tablets 1 by mouth every day 90tabs Tee Pagan M.D. 01/16/[id number] Take 1 Capsule By Mouth Twice A Day Suzanna Aguilar MD Hydroxyzine PHU62nn Tablets Take 1 Tablet (25 MG) By Mouth 3 Times A Day as Needed For Itching Purnima Stock P.ASatya Lisinopril2.5mg Tablets Take 1 Tablet By Mouth Twice A Day [employer] P.A. Trazodone QFO36jk Tablets Take 2 Tablets By Mouth Every Day For 90 Days Mega Tijerina MD Jclenplpq870wc Tablets Take 1 Tablet By Mouth Twice A Day For 30 Days Mega Tijerina MD Vclveccdh6fm Tablets Take 1 Tablet By Mouth Every Day AT Bedtime as Needed [employer] P.A. Escitalopram Oaehehv15rc Tablets Take 1 Tablet By Mouth Every Day Purnima Stock P.A. Duloxetine KFT40mn Caps DR Part 1 tab by mouth [...] 3.9-4.9 Cortisol, Free, 24 HR Urine 02/09/2023 [facility] Cortisol, Quant 20 4 Ur Free Cortisol 37 5 Total Volume 550 Vjaep-Og-Vrthe 02/09/2023 [facility] Creatinine, Urine MG/DL 160.6 mg/dL Creatinine Ur GM/24HR 0.9 GM/24HR (0.72-1.5) Period & Volume 02/09/2023 [facility] Urine Collection Period 24 HRS Volume 550 MLS Cortisol 02/05/2023 [facility] Cortisol 2.6 g/dL 6 TSH With Reflex To FT4 01/16/2023 [facility] TSH With Reflex To FT4 0.50 uIU/mL (0.4-4.2) FT4 By Direct Dialysis 01/16/2023 [facility] FT4 By Direct Dialysis 0.91 7 Free T3 01/16/2023 [facility] Free T3 2.7 pg/mL (2.3-5.0) 25Oh Vitamin D 01/16/2023 [facility] 25Oh Vitamin D 46.9 NG/ML (20-50) Free T4 01/16/2023 [facility] Free T4 0.82 ng/dL (0.70-1.80) 1 Test(s) 391166-Zosvl lucia,F,ug/L,U was developed and its performance characteristics determined by [facility]. It has not been cleared or approved by the Food and Drug Administration. 2 Test(s) 572685-Bkmip Activity, Plasma was developed and its performance characteristics determined by [facility]. It has not been cleared or approved by the Food and Drug Administration. Test(s) 333199-Fwtrkjiwqha was developed and its performance characteristics determined by [facility]. It has not been cleared or approved by the Food and Drug Administration. Test(s) 728605-Tbqsbdighcnrgbb, Pl; 045714-Swxecynvnein, Pl was developed and its performance characteristics determined by [facility]. It has not been cleared or approved by the Food and Drug Administration. 3 Vitamin D deficiency has been defined by the [place] of Medicine and an Endocrine Society practice guideline as a level of serum 25-OH vitamin D less than 20 ng/mL (1,2). The Endocrine Society went on to further define vitamin D insufficiency as a level between 21 and 29 ng/mL (2). 1. IOM ([place] of [employer]). 2010. Dietary reference intakes for [...] developed and its performance characteristics determined by [facility]. It has not been cleared or approved by the Food and Drug Administration. Test performed at [address] [address] Reference Range: 6-10 am: 6.0-18.4 ug/dL 4-8 pm: 2.7-10.5 ug/dL 7 Unit: ng/dL (NOTE) This test was developed and its performance characteristics determined by [facility]. It has not been cleared or approved by the Food and Drug Administration. Reference Range: Pubertal Children and Adults: 0.8 - 1.7 Test performed by [facility], [facility], [place] [address] Medical Devices Description No Information Available Encounters [...]
--- NOTE | 2025-02-06 10:17 | MHC.OFFVIS ---
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: No Allergies levofloxacin (From Levaquin) Allergy (Severe, Verified 02/06/25 10:19) lost feeling in legs adhesive tape Adverse Reaction (Severe, Verified 02/06/25 10:19) Blister clavulanic acid (From Augmentin) Adverse Reaction (Severe, Verified 02/06/25 10:19) Gastrointestinal Upset hydromorphone (From Dilaudid) Adverse Reaction (Severe, Verified 02/06/25 10:19) Nausea clarithromycin (From Biaxin) Adverse Reaction (Intermediate, Verified 02/06/25 10:19) Nausea and Vomiting clindamycin Adverse Reaction (Intermediate, Verified 02/06/25 10:19) Nausea and Vomiting doxycycline Adverse Reaction (Intermediate, Verified 02/06/25 10:19) Nausea and Vomiting Sulfa (Sulfonamide Antibiotics) Adverse Reaction (Intermediate, Verified 02/06/25 10:19) Nausea and Vomiting Medication List - Last Reconciled 02/06/25 by Allyn Meyer LPN albuterol sulfate 90 mcg/actuation 2 mcg inhalation Q4H PRN B complex and C 20-folic acid 1 mg 1 cap PO DAILY baclofen 10 mg PO TID 30 days cetirizine 10 mg PO DAILY cholecalciferol (vitamin D3) 25 mcg PO DAILY CPAP (CPAP Machine/Device) As directed duloxetine 30 mg PO BID escitalopram oxalate 10 mg PO DAILY fluticasone propionate 50 mcg/actuation 2 sprays intranasal DAILY 30 days steilppsouv-anyotgziu-eoheynph 200-62.5-25 mcg (Trelegy Ellipta) 1 inh inhalation DAILY 30 days gabapentin 300 mg PO TID 30 days hydroxyzine HCl 25 mg PO TID PRN inhalational spacing device (Aerochamber MV spacer) As directed lisinopril 2.5 mg PO BID lorazepam 1 mg PO DAILY PRN modafinil (Provigil) 200 mg PO BID omeprazole 40 mg PO BID oxycodone-acetaminophen 5-325 mg 1 tab PO Q8H PRN Oxygen Home Use As directed trazodone 100 mg PO BEDTIME PRN HPI HPI S/p Clementon Sci SCS Implant 01/21/25 (2nd visit): Details: History of Present Illness The patient is a 64-year-old female presenting with triadic pain and postoperative care. The patient has been experiencing sciatic pain, which had improved with a combination program until a few days ago when the pain returned. The pain is described as uncomfortable, particularly when there is a shift in the leads, and recalibration of the thresholds is being considered. Postoperative care involves monitoring the healing of incisions, which are reported to be healing well with some itching. The patient has been advised to avoid certain activities such as bending and lifting heavy objects to prevent stress on the leads. Pain Description - Onset: Pain returned a few days ago after initial improvement - Quality: Described as uncomfortable, exacerbated by movement or shift in leads - Location: Associated with the area of the battery placement - Exacerbating factors: Movement, bending, and pressure on the area - Relieving factors: Avoiding bending and heavy lifting, potential recalibration of thresholds Physical Exam - Incisions: Healing well, slight itching noted. Mild persistent TTP Pain Management - Affect: Pain impacts comfort, particularly with movement - Analgesia: Consideration of recalibration of thresholds for pain management - Activities of Daily Living: Advised to avoid bending and lifting to prevent stress on leads PFSH Medical History Hx of ovarian cyst Adrenal cyst Dyspnea GERD (gastroesophageal reflux disease) Depression Arthritis Fibromyalgia Pulmonary nodules Thymoma FERCHO on CPAP COPD (chronic obstructive pulmonary disease) Surgical History (Updated 02/17/25 @ 08:05 by Prince Corrigan MD) History of surgery (~12/17/24) History of back surgery Hx of foot surgery History of esophagogastroduodenoscopy (EGD) H/O colonoscopy H/O thymectomy H/O parotidectomy H/O tubal ligation H/O sinus surgery Family History Mother COPD (chronic obstructive pulmonary disease) Father Prostate [place] Social History Household Members: Spouse Are you a primary home care manager rn to a significant other at home: No Do you presently have visiting nurse or other home services: Yes (Meals on Wheels) Alcohol intake: never Patient Tobacco Use Status: Former Tobacco user Tobacco use type: Cigarette Cigarette Packs Per Day: 1 Years Smoked: 20 Physical Exam Vital Signs: Last Vital Signs Pulse 89 02/06/25 10:19 Resp 16 02/06/25 10:19 BP 133/60 02/06/25 10:19 Pulse Ox 93 02/06/25 10:19 Oxygen Delivery Method Room Air 02/06/25 10:19 BMI result Body Mass Index 36.9 Assessment & Plan Assessment & Plan (1) Post laminectomy syndrome: Code(s): M96.1 - Postlaminectomy syndrome, not elsewhere classified Category: Medical (2) S/P insertion of spinal cord stimulator: Code(s): Z96.89 - Presence of other specified functional implants Category: Surgical Plan Plan - Recalibrate thresholds if there is a shift in the leads to manage sciatic pain. - Monitor incision healing and apply hydrocortisone for itching if needed. - Advise patient to avoid bending and lifting heavy objects to prevent stress on the leads. - Follow up as needed for further reprogramming or if pain persists. Patient was informed and verbally consented to the use of an ambient scribe for clinic note documentation during this visit. Discussion Notes I discussed with the patient the importance of recalibrating the thresholds if there is a shift in the leads to manage her triadic pain. We also talked about monitoring the healing of her incisions and applying hydrocortisone for itching if necessary. I advised her to avoid bending and lifting heavy objects to prevent stress on the leads and to follow up as needed for further reprogramming or if her pain persists. Patient Instructions - Avoid bending and lifting heavy objects to prevent stress on the leads. - Monitor incision healing and apply hydrocortisone for itching if needed. - Follow up as needed for further reprogramming or if pain persists. Coding Level of Care Code Est Pt Level 3 (47955) Diagnoses Post laminectomy syndrome M96.1 S/P insertion of spinal cord stimulator Z96.89
[2025-02-06 10:19] VITALS: BP 133/60; PULSE 89; RESP 16; O2SAT 93; BMI 36.9
== END 2025-02-06 10:47 | disposition home or self-care (01) ==
LOC: HO.PMC 09:33
PROVIDERS: PCP Nurse Practitioner; Visit Provider Internal Medicine
DX: M96.1 Postlaminectomy syndrome, not elsewhere classified (principal); Z96.89 Presence of other specified functional implants
CPT/HCPCS: 99213

== ENCOUNTER → 2025-02-06 09:33 | Outpatient (BNVA) | payer MEDICARE, MEDICAID, SELFPAY | PROVIDERS: PCP Nurse Practitioner; Visit Provider Internal Medicine | DX: M96.1 Postlaminectomy syndrome, not elsewhere classified (principal); Z96.82 Presence of neurostimulator | CPT/HCPCS: 99212 ==

== ENCOUNTER 2025-02-12 14:28 | Outpatient (REF) | payer MEDICARE, MEDICAID, SELFPAY ==
--- NOTE | 2025-02-12 14:34 | PFT_ITS ---
Indication COPD Spirometry FEV1 to FVC 66%; FEV1 1.92 L; FVC 2.9 L. No significant response to bronchodilators noted. Lung Volumes Total lung capacity 90% predicted; residual volume 72% predicted Diffusion Capacity DLCO 71% predicted Comparisons None Interpretation There is an obstructive ventilatory defect consistent with mild COPD. No significant response to bronchodilators noted. Lung volumes are within normal limits. The patient has a mild diffusion impairment. Clinical correlation warranted. MTDD
--- OUTSIDE RECORDS SUMMARY | 2025-02-12 14:37 | XMS_ITS | Continuity of Care Document ---
Author Organization [facility] [address] [facility] [address] [place] [address] Phone [phone] Care Team Providers Care Counter Tacker Name Role Phone Emmanuel Merrill NP Care Team Information Employee Relations Representative [phone] Problems Active Problems Provider Date Asthma Tee [...] meals 300units M81.0 Magda Marinelli M.D. 12/12/2023 Mokzxoajlb667zv Tablets 1 by mouth every day 90tabs Tee Pagan M.D. 01/16/[address] Take 1 Capsule By Mouth Twice A Day Suzanna Aguilar MD Hydroxyzine ZZO71uf Tablets Take 1 Tablet (25 MG) By Mouth 3 Times A Day as Needed For Itching Purnima Stock P.ASatya Lisinopril2.5mg Tablets Take 1 Tablet By Mouth Twice A Day Purnima Stock P.A. Trazodone IHW33kh Tablets Take 2 Tablets By Mouth Every Day For 90 Days Mega Tijerina MD Ogvlfdhuu174ah Tablets Take 1 Tablet By Mouth Twice A Day For 30 Days Mega Tijerina MD Xeeykvnty7sw Tablets Take 1 Tablet By Mouth Every Day AT Bedtime as Needed Purnima Stock P.A. Escitalopram Rytbarj76ol Tablets Take 1 Tablet By Mouth Every Day Purnima Stock P.A. Duloxetine DXK53hm Caps DR Part 1 tab by mouth [...] 3.9-4.9 Cortisol, Free, 24 HR Urine 02/09/2023 [facility] Cortisol, Quant 20 4 Ur Free Cortisol 37 5 Total Volume 550 Rnzfs-Lb-Cvcur 02/09/2023 [facility] Creatinine, Urine MG/DL 160.6 mg/dL Creatinine Ur GM/24HR 0.9 GM/24HR (0.72-1.5) Period & Volume 02/09/2023 [facility] Urine Collection Period 24 HRS Volume 550 MLS Cortisol 02/05/2023 [facility] Cortisol 2.6 g/dL 6 TSH With Reflex To FT4 01/16/2023 [facility] TSH With Reflex To FT4 0.50 uIU/mL (0.4-4.2) FT4 By Direct Dialysis 01/16/2023 [facility] FT4 By Direct Dialysis 0.91 7 Free T3 01/16/2023 [facility] Free T3 2.7 pg/mL (2.3-5.0) 25Oh Vitamin D 01/16/2023 [facility] 25Oh Vitamin D 46.9 NG/ML (20-50) Free T4 01/16/2023 [facility] Free T4 0.82 ng/dL (0.70-1.80) 1 Test(s) 370643-Qmdbt lucia,F,ug/L,U was developed and its performance characteristics determined by [facility]. It has not been cleared or approved by the Food and Drug Administration. 2 Test(s) 845219-Mtzjv Activity, Plasma was developed and its performance characteristics determined by [facility]. It has not been cleared or approved by the Food and Drug Administration. Test(s) 188300-Nedvduypwhm was developed and its performance characteristics determined by [facility]. It has not been cleared or approved by the Food and Drug Administration. Test(s) 559263-Qcbifwjahndiwtg, Pl; 385608-Mvfzvjqzqkql, Pl was developed and its performance characteristics determined by [facility]. It has not been cleared or approved by the Food and Drug Administration. 3 Vitamin D deficiency has been defined by the [place] of Medicine and an Endocrine Society practice guideline as a level of serum 25-OH vitamin D less than 20 ng/mL (1,2). The Endocrine Society went on to further define vitamin D insufficiency as a level between 21 and 29 ng/mL (2). 1. IOM ([place] of [employer]). 2010. Dietary reference intakes for [...] developed and its performance characteristics [facility]. It has not been cleared or approved by the Food and Drug Administration. Test performed at [address] [address] Reference Range: 6-10 am: 6.0-18.4 ug/dL 4-8 pm: 2.7-10.5 ug/dL 7 Unit: ng/dL (NOTE) This test was developed and its performance characteristics determined by [facility]. It has not been cleared or approved by the Food and Drug Administration. Reference Range: Pubertal Children and Adults: 0.8 - 1.7 Test performed by [facility], [facility], [place] [address] Medical Devices Description No Information Available Encounters [...] - Domingo Winters NP at Main Office Functional Status Description No Information Available Mental Status Description No Information Available Referrals Description No Information Available
[2025-02-12 15:17] VITALS: PULSE 90; O2SAT 94
== END 2025-02-12 14:29 | disposition home or self-care (01) ==
LOC: HO.RESP 14:28
PROVIDERS: PCP Nurse Practitioner; Visit Provider Hospitalist
DX: J43.2 Centrilobular emphysema (principal)
CPT/HCPCS: 94010; 94640; 94727; 94729

== ENCOUNTER → 2025-02-12 14:34 | Outpatient (BNV) | payer MEDICARE, MEDICAID, SELFPAY | PROVIDERS: PCP Nurse Practitioner; Visit Provider Hospitalist | DX: J44.9 Chronic obstructive pulmonary disease, unspecified (principal) | CPT/HCPCS: 94060; 94727; 94729 ==

== ENCOUNTER 2025-03-10 12:34 | Outpatient (AMB) | payer MEDICARE, MEDICAID, SELFPAY ==
--- NOTE | 2025-03-10 12:54 | A.OFFVIS_ITS ---
Intake Visit Reasons: 3 months follow up Allergies levofloxacin (From Levaquin) Allergy (Severe, Verified 03/10/25 13:03) lost feeling in legs adhesive tape Adverse Reaction (Severe, Verified 03/10/25 13:03) Blister clavulanic acid (From Augmentin) Adverse Reaction (Severe, Verified 03/10/25 13:03) Gastrointestinal Upset hydromorphone (From Dilaudid) Adverse Reaction (Severe, Verified 03/10/25 13:03) Nausea clarithromycin (From Biaxin) Adverse Reaction (Intermediate, Verified 03/10/25 13:03) Nausea and Vomiting clindamycin Adverse Reaction (Intermediate, Verified 03/10/25 13:03) Nausea and Vomiting Sulfa (Sulfonamide Antibiotics) Adverse Reaction (Intermediate, Verified 03/10/25 13:03) Nausea and Vomiting Medication List - Last Reconciled 03/10/25 by Shira Markham CNP albuterol sulfate 90 mcg/actuation 2 mcg inhalation Q4H PRN B complex and C 20-folic acid 1 mg 1 cap PO DAILY baclofen 10 mg PO TID 30 days cetirizine 10 mg PO DAILY cholecalciferol (vitamin D3) 25 mcg PO DAILY CPAP (CPAP Machine/Device) As directed duloxetine 30 mg PO BID escitalopram oxalate 10 mg PO DAILY fluticasone propionate 50 mcg/actuation 2 sprays intranasal DAILY 30 days jtzilaagohk-ascngpxqn-bngfwjjh 200-62.5-25 mcg (Trelegy Ellipta) 1 inh inhalation DAILY 30 days gabapentin 300 mg PO TID 30 days hydroxyzine HCl 25 mg PO TID PRN inhalational spacing device (Aerochamber MV spacer) As directed lisinopril 2.5 mg PO BID lorazepam 1 mg PO DAILY PRN modafinil (Provigil) 200 mg PO BID omeprazole 40 mg PO BID oxycodone-acetaminophen 5-325 mg 1 tab PO Q8H PRN Oxygen Home Use As directed trazodone 100 mg (2 x 50 mg) PO BEDTIME PRN HPI Comments Details: 64-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 She was doing okay. Back and leg pain was better with SCS. She was not having as much pain when walking. Walking with walker, no falls. She lost about 10 pounds. Fibromyalgia pains were stable with current medications. Sleep was okay, occasionally has some trouble falling asleep. [facility] Medical History (Updated 03/10/25 @ 12:59 by Shira Markham CNP) Hx of ovarian cyst Adrenal cyst Dyspnea GERD (gastroesophageal reflux disease) Depression Arthritis Fibromyalgia Pulmonary nodules Thymoma FERCHO on CPAP COPD (chronic obstructive pulmonary disease) Surgical History (Updated 02/17/25 @ 08:05 by Prince Corrigan MD) History of surgery (~12/17/24) History of back surgery Hx of foot surgery History of esophagogastroduodenoscopy (EGD) H/O colonoscopy H/O thymectomy H/O parotidectomy H/O tubal ligation H/O sinus surgery Family History Mother COPD (chronic obstructive pulmonary disease) Father Prostate CA Social History Household Members: Spouse Are you a primary critical care registered nurse to a significant other at home: No Do you presently have visiting nurse or other home services: Yes (Meals on Wheels) Alcohol intake: never Patient Tobacco Use Status: Former Tobacco user Tobacco use type: Cigarette Cigarette Packs Per Day: 1 Years Smoked: 20 Review of Systems Const Denies chills, Denies daytime sleepiness, Reports difficulty sleeping, Reports fatigue, Denies fever(s), Denies frequent falls, Denies headache(s), Denies increased appetite, Denies poor appetite, Denies snoring, Denies weakness, Denies weight gain and Denies weight loss Eyes Denies loss of vision ENT Denies vertigo, Denies dizziness and Denies headache(s) Card Denies chest pain at rest, Denies chest pain with activity, Denies syncope, Denies leg edema and Denies palpitations Resp Denies snoring GI Denies constipation, Denies heartburn, Denies diarrhea and Denies nausea Denies urinary frequency, Denies urinary incontinence and Denies urinary urgency Musc Denies abnormal gait, Denies numbness and Denies tingling Skin/Breast Denies dry skin and Denies rash Neuro Denies abnormal gait, Denies vertigo, Denies dizziness, Denies syncope, Denies frequent falls, Denies headache(s), Denies lack of coordination, Denies loss of vision, Denies memory loss, Denies numbness, Denies restless legs, Denies seizure-like activity, Denies tingling, Denies paresthesias, Denies tremor(s) and Denies weakness Psych Denies anxiety, Denies depression, Denies auditory hallucinations, Denies memory loss, Denies visual hallucinations and Denies suicidal ideation Endo Reports fatigue and Denies palpitations Physical Exam Const Other: General Appearance:? normal, in no acute distress. Skin:? no rashes, no significant birthmarks. Heart:? S1, S2 normal, no murmurs. Lungs:? clear anteriorly and posteriorly. Extremities:? no edema. Psych:? alert, oriented, cognitive function intact, cooperative with exam. Neuro Other: Mental Status:?Normal attention, orientation, memory and affect.? Cranial Nerves:?Pupils are equal, round and reactive to light. External occular muscles are intact. Visual dailey are full. Face is symmetrical. Facial sensations are normal. Tongue is midline. Palate elevates symmetrically. Shoulder shrugging is normal. Hearing to bedside conversation is normal. Motor Examination:?DTRs trace to absent. Sensory Exam:?....? Coordination:?No ataxia,?no titubation.? Gait Exam: With a walker. Cerebellar Signs:?Mbbumv-ep-dxeo is okay. Extrapyramidal System:?No tremor, rigidity with normal facial expressions.? Pronator Drift:?Not present.? Involuntary Movements:?No tremors seen.? Speech:?Normal.? Results Reviewed Results Reviewed: MRI LS spine at [facility] in Jun 2022: DJD, Mild L2 comp fracture, mild L5/S1 spondylosis. Assessment & Plan Assessment & Plan (1) Fibromyalgia: Code(s): M79.7 - Fibromyalgia Category: Medical Plan: Continue gabapentin 300mg 1 capsule three times a day. Continue duloxetine 30mg 1 capsule twice a day. Continue baclofen 10mg 1 tablet three times a day as needed for pain. (2) Fatigue: Code(s): R53.83 - Other fatigue Category: Medical Qualifiers: Fatigue type: unspecified Qualified Code(s): R53.83 - Other fatigue Plan: Continue modafinil 200mg 1 tablet twice a day. (3) Insomnia: Code(s): G47.00 - Insomnia, unspecified Category: Medical Qualifiers: Insomnia type: unspecified Qualified Code(s): G47.00 - Insomnia, unspecified Plan: Continue trazodone 50mg 2 tablets at bedtime as needed for sleep. (4) FERCHO on CPAP: Code(s): G47.33 - Obstructive sleep apnea (adult) (pediatric); Z99.89 - Dependence on other enabling machines and devices Category: Medical Plan Meds tried: gabapentin, Gralise, Lyrica, Savella, duloxetine, baclofen Coding Level of Care Code Est Pt Level 4 (60202) Diagnoses Fibromyalgia M79.7 Fatigue, unspecified type R53.83 Fatigue type: unspecified Insomnia, unspecified type G47.00 Insomnia type: unspecified FECRHO on CPAP G47.33; Z99.89
--- OUTSIDE RECORDS SUMMARY | 2025-03-10 16:37 | XMS_ITS | Continuity of Care Document ---
Author Organization [facility] [address] [place] [address] Phone [phone] Care Team Providers Care Ticket Broker Name Role Phone Emmanuel Merrill NP Care Team Information Director Of Pediatric Rehabilitation [phone] Problems Active Problems Provider Date Asthma Tee [...] 01/16/2023 Levaquin Unable to assess criticality 01/16/2023 Medications Active Medications SIG Qnty Indications Order ing Provider Date Jwvzgttiofeyl7oq Tablets take 1 tablet by mouth at 11 pm, go for fasting blood work the following morning at 8 am. 1tabs R19.09 Domingo Winters NP 02/13/2025 BD Pen Needle/Short/Ultra-F ine/31G X 8mm31G X 8 mm Misc use 1 pen needle 3 times a day before meals 300units M81.0 Magda Marinelli M.D. 12/12/2023 [id number] Tablets 1 by mouth every day 90tabs Tee Pagan M.D. 01/16/[address] Take 1 Capsule By Mouth Twice A Day Suzanna Aguilar MD Hydroxyzine XCO00ia Tablets Take 1 Tablet (25 MG) By Mouth 3 Times A Day as Needed For Itching Purnima Stock P.ASatya Lisinopril2.5mg Tablets Take 1 Tablet By Mouth Twice A Day Purnima Stock PSatyaASatya Trazodone BYG86ty Tablets Take 2 Tablets By Mouth Every Day For 90 Days Mega Tijerina MD Ibysilvzn536hg Tablets Take 1 Tablet By Mouth Twice A Day For 30 Days Mega Tijerina MD Qpmarextc5yj Tablets Take 1 Tablet By Mouth Every Day AT Bedtime as Needed Purnima Stock P.ASatya Escitalopram Qnumszh62wy Tablets Take 1 Tablet By Mouth Every Day Purnima Stock P.ASatya Ouktyhrh14qe Tablets 3 times daily Unkno wn Trelegy Szsulkl850-77.5-25mc g/Act Aerosol Inhale 1 puff By Mouth Daily For 30 Days Donell Partida Albuterol Sulfate MSY045(90Base) mcg/Act Aerosol use 2 puffs every 4 to 6 hours as needed Unknown Vital Signs Date Vital Result Comment 02/13/2025 10:00am BP Systolic 114 mmHg BP Diastolic 64 mmHg Height 61 inches 5'1 Weight 189.50 lb BMI (Body Mass Index) 35.8 kg/m2 Results Test Acquired Date Facility Test Result H/L Range Note Dexamethasone Serum 03/06/2025 [facility] Dexamethasone Serum <pending> Glomerular Filtration Rate Estimated 03/06/2025 [facility] Creatinine 0.77 mg/dL 0.57-1.00 eGFR 86 mL/min/1. 73 >59 Cortisol 03/06/2025 [facility] Cortisol 1.1 g/dL Low 6.2-19.4 1 Cortisol, Urinary Free By HPLC 10/03/2024 [facility] Cortisol,F,ug/L, U 79 ug/L Undefined 2 Cortisol,F,ug/2 4 hr,U 40 ug/24hr 6-42 Renin Activity, Plasma 09/30/2024 [facility] Renin Activity, Plasma 2.312 ng/mL/hr 0.167-5.380 [address]., [address], Free 09/30/2024 [facility] Normetanephrine, Pl 108.0 pg/mL 0.0-285.2 Metanephrine, Pl 27.3 pg/mL 0.0-88.0 Aldosterone LCMS, Serum 09/30/2024 [facility] Aldosterone LCMS, Serum 5.8 ng/dL 0.0-30.0 Glomerular Filtration Rate Estimated 09/30/2024 [facility] Creatinine 0.88 mg/dL 0.57-1.00 eGFR 74 mL/min/1. 73 >59 Albumin 09/30/2024 [facility] Albumin 3.9 g/dL 3.9-4.9 Vitamin D, 25-Hydroxy 09/30/2024 [facility] Vitamin D, 25-Hydroxy 31.2 ng/mL 30.0-100.0 4 Calcium 09/30/2024 [facility] Calcium 9.0 mg/dL 8.7-10.3 Thyroxine (T4) Free, Direct 09/30/2024 [facility] Thyroxine (T4) Free, Direct 0.96 ng/dL 0.82-1.77 TSH 09/30/2024 [facility] TSH 1.930 uIU/mL 0.450-4.500 Calcium 01/01/2024 [facility] Calcium 9.6 mg/dL 8.7-10.3 Albumin 01/01/2024 [facility] Albumin 4.2 g/dL 3.9-4.9 Cortisol, Free, 24 HR Urine 02/09/2023 [facility] Cortisol, Quant 20 5 Ur Free Cortisol 37 6 Total Volume 550 Lqscb-Ii-Lpsvy 02/09/2023 [facility] Creatinine, Urine MG/DL 160.6 mg/dL Creatinine Ur GM/24HR 0.9 GM/24HR (0.72-1.5) Period & Volume 02/09/2023 [facility] Urine Collection Period 24 HRS Volume 550 MLS Cortisol 02/05/2023 [facility] Cortisol 2.6 g/dL 7 TSH With Reflex To FT4 01/16/2023 [facility] TSH With Reflex To FT4 0.50 uIU/mL (0.4-4.2) FT4 By Direct Dialysis 01/16/2023 [facility] FT4 By Direct Dialysis 0.91 8 Free T3 01/16/2023 [facility] Free T3 2.7 pg/mL (2.3-5.0) 25Oh Vitamin D 01/16/2023 [facility] 25Oh Vitamin D 46.9 NG/ML (20-50) Free T4 01/16/2023 [facility] Free T4 0.82 ng/dL (0.70-1.80) 1 Please Note: The ref erence interval and flagging for this test is for an AM collection. If this is a PM collection please use: Cortisol PM: 2.3-11.9 2 Test(s) 772984-Eyidu lucia,F,ug/L,U was developed and its performance characteristics determined by [facility]. It has not been cleared or approved by the Food and Drug Administration. 3 Test(s) 501137-Hesqq Activity, Plasma was developed and its performance characteristics determined by [facility]. It has not been cleared or approved by the Food and Drug Administration. Test(s) 829721-Nrjsjygufcm was developed and its performance characteristics determined by [facility]. It has not been cleared or approved by the Food and Drug Administration. Test(s) 879079-Awzmewcsnxarjic, Pl; 106073-Pgkbwatecwfp, Pl was developed and its performance characteristics determined by [facility]. It has not been cleared or approved by the Food and Drug Administration. 4 Vitamin D deficiency has been defined by the [place] [employer] and an Endocrine Society practice guideline as a level of serum 25-OH vitamin D less than 20 ng/mL (1,2). The Endocrine Society went on to further define vitamin D insufficiency as a level between 21 and 29 ng/mL (2). 1. IOM ([place] of [employer]). 2010. Dietary reference intakes for calcium and D. [place]: The National Academies Press. 2. Benita MF, Solitario WOOD, Cole BURTON, et al. Evaluation, treatment, and prevention of vitamin D deficiency: an Endocrine Society clinical practice guideline. JCEM. 2010; 96(7):1911-30. 5 Reference range: 6 t o 42 Unit: ug/24 hr 6 Reference range: Und efined Unit: ug/L (NOTE) This test was developed and its performance characteristics determined by [facility]. It has not been cleared or approved by the Food and Drug Administration. Test performed at [address] [id number] 7 Reference Range: 6-10 am: 6.0-18.4 ug/dL 4-8 pm: 2.7-10.5 ug/dL 8 Unit: ng/dL (NOTE) This test was developed and its performance characteristics determined by [facility]. It has not been cleared or approved by the Food and Drug Administration. Reference Range: Pubertal Children and Adults: 0.8 - 1.7 Test performed by [facility], [address] [place] [id number] Medical Devices Description No Information Available Encounters Type Date Location Provider Dx Diagnosis Office Visit 02/13/2025 10:15a Main Office Domingo Winters NP M81.0 Age-related osteoporosis w/o current pathological fracture E04.1 Nontoxic single thyr oid nodule R19.09 Other intra-abdomina l and pelvic swelling, mass and lump Assessments Date Code Description Provider 02/13/2025 M81.0 Osteoporosis Domingo Winters NP 02/13/2025 E04.1 Thyroid nodule Domingo jorgensen NP 02/13/2025 R19.09 Adrenal mass Domingo Winters NP Plan of Treatment Future Appointment(s):* 08/17/2025 1:00 pm - Domingo Winters NP at Main Office 02/13/2025 - Domingo Winters NP* M81.0 Osteoporosis * E04.1 Thyroid nodule * R19.09 Adrenal mass Functional Status Description No Information Available Mental Status Description No Information Available Referrals Description No Information Available
== END 2025-03-10 13:23 | disposition home or self-care (01) ==
LOC: HO.HSM 12:34
PROVIDERS: PCP Nurse Practitioner; Visit Provider Registered Nurse
DX: M79.7 Fibromyalgia (principal); R53.83 Other fatigue; G47.00 Insomnia, unspecified; G47.33 Obstructive sleep apnea (adult) (pediatric); Z99.89 Dependence on other enabling machines and devices
CPT/HCPCS: 99214

== ENCOUNTER → 2025-03-10 12:34 | Outpatient (BNVA) | payer MEDICARE, MEDICAID, SELFPAY | PROVIDERS: PCP Nurse Practitioner; Visit Provider Registered Nurse | DX: M79.7 Fibromyalgia (principal); R53.83 Other fatigue; G47.00 Insomnia, unspecified; G47.33 Obstructive sleep apnea (adult) (pediatric); Z99.89 Dependence on other enabling machines and devices | CPT/HCPCS: 99212 ==

== ENCOUNTER 2025-04-07 12:52 | Outpatient (AMB) | payer MEDICARE, MEDICAID, SELFPAY ==
[2025-04-07 13:02] VITALS: BP 126/64; PULSE 85; O2SAT 98; BMI 36.2
--- NOTE | 2025-04-07 13:02 | MHC.OFFVIS ---
Vital Signs 04/07/25 13:02 Height 5 ft Weight 185 lb 3.013 oz BMI 36.2 BP 126/64 Blood Pressure Location Lt brachial Position Sitting Pulse 85 Pulse Source Pulse Oximeter Pulse Oximetry (%) 98 Oxygen Delivery Method Room Air Intake Visit Reasons: COPD Taker Off Required: No Accompanied by: Self / Same As Patient Allergies levofloxacin (From Levaquin) Allergy (Severe, Verified 04/07/25 13:06) lost feeling in legs adhesive tape Adverse Reaction (Severe, Verified 04/07/25 13:06) Blister clavulanic acid (From Augmentin) Adverse Reaction (Severe, Verified 04/07/25 13:06) Gastrointestinal Upset hydromorphone (From Dilaudid) Adverse Reaction (Severe, Verified 04/07/25 13:06) Nausea clarithromycin (From Biaxin) Adverse Reaction (Intermediate, Verified 04/07/25 13:06) Nausea and Vomiting clindamycin Adverse Reaction (Intermediate, Verified 04/07/25 13:06) Nausea and Vomiting Sulfa (Sulfonamide Antibiotics) Adverse Reaction (Intermediate, Verified 04/07/25 13:06) Nausea and Vomiting HPI Comments Details: The patient is a 64 y/o woman with COPD, former smoker and FERCHO on CPAP. Having muliple complaints including chest tightness and shortness of breath. Moderate in severity. Her SUNDAR inhaler does not help. She did undergo PFTs at [facility] with mild COPD, but significant small airways disease. She also underwent a CT chest demonstrating moderate emphysema, multiple pulmonary nodules and an anterior mediastinal mass. She was dx with a thymoma. Denies any weakness or myasthenia Gravis. She will be undergoing surgery at [facility] soon. Also, she has been on CPAP for many years, However, her CPAP is no longer working. She does have an elevated Leiter score 24. 04/19/2023 the patient is here for a pulmonary follow-up visit. Overall the patient has been doing well. She did undergo her thymoma surgery. After she did have some chest discomfort. But it has been slowly getting better. Her breathing also been better. She does have oxygen right now. We did take her off the oxygen and did a 6 minute walk test. She was able to maintain pulse ox within the normal ranges. Therefore, is reasonable for her to discontinue the oxygen for now. will plan to reassess her again when she returns for her next follow-up visit. In the meantime her respiratory status is stable. the patient is scheduled to undergo spine surgery. At this point clinically the patient is doing better. the patient does have increased risk for perioperative pulmonary complications which includes atelectasis, hypoxia, pneumonia. At this point she is medically optimized from a pulmonary standpoint it may go ahead and proceed with anesthesia and surgery. She should keep the oxygen at home however. It is likely that she will needed postoperatively. The patient also underwent a home sleep study. The patient does have moderate degree of sleep apnea. She also underwent a titration study and they did recommend APAP. Therefore, I will submit for a replacement CPAP since her current CPAP is no longer functional. She does have an elevated Leiter score of 11. The patient does have cardiovascular risk factors therefore restarting her CPAP is important. 08/08/2023 the patient is here for a pulmonary follow-up visit. Overall she is doing well. She stopped the Symbicort because she was getting thrush. She is just doing well on the rescue inhaler. Unfortunately she could not have her surgery and now scheduled for the next few weeks from now. Clinically the patient is doing much better from a respiratory status and she really is not using the oxygen at this time. Like we plan the last time we want to retest her for oxygen needs after her surgery just in case she needs oxygen in the postoperative period. I do believe that she will not need it. She did get a new CPAP. The CPAP has been affecting beneficial she does use it for more than 4 hours a night with 100% compliance. Her AHI though continues to be a little elevated at 5.7. We did increase her pressures from 6-16 2 8-18 because she does need a higher pressure. I believe that this will help. 11/16/2023 the patient is here for a pulmonary follow-up visit. Overall the patient had been doing okay. Still using the Symbicort 2 thrush. We did talk about Anoro which would be a good agent for her specially with the chest tightness and wheezing. This 1 will not have the inhaled steroid to minimize the risk of any or mucosal irritation. The patient is agreeable to this. In meantime she has been using the CPAP. The CPAP therapy has been affecting beneficial. The patient did have her surgery and she tolerated it well though she did have some leakage from the wound for some period of time. As far as imaging studies the patient is due for CT scan in 08/14/2024. The patient continue with current respiratory therapy and CPAP follow-up in the spring. 01/24/2024 the patient is complaining worsening shortness of breath. Patient states that inhalers not helping. Her shortness of breath is moderate severity. We did review her pulmonary function studies together. She does have extensive emphysema primarily affecting the upper lung zones. She does also have some atelectasis at the right base. Also some postoperative changes. She has not had any recent PFTs specially after her surgery. Will go ahead and request pulmonary function studies as she was not severity of her COPD. In the meantime will go ahead and maximize her respiratory therapy by giving her a course of prednisone to try to decrease the inflammation of the airways and also start her on Trelegy. The patient also underwent a 6 minute walk test. Appears that she briefly decreased down to 88% with activity. The patient does have extensive emphysema and also likely some restriction due to the atelectasis and postoperative changes. Explained to her that this is causing her to have significant diffusion impairment. The patient benefits from oxygen supplementation with activity. We did ambulate her on 2 L pulse and she was able to maintain a pulse ox of 94% with activity. Therefore, will request a portable oxygen concentrator from her [employer] company to see if we can provide her with better portability outside of the home. She does use a walker and will be easier for her to carry with less risk of injury. The patient will undergo pulmonary function studies and she will return for further follow-up. 04/10/2024 the patient is here for a pulmonary follow-up visit. Overall she is doing okay. Her breathing is better. The patient has have significant back pain though she has to follow-up with her surgeon. From a breathing standpoint the patient did have pulmonary function studies. She does have COPD. I did recommend pulmonary rehabilitation and she is open to this. The patient also is getting oxygen delivered. She will be getting a portable oxygen concentrator to provide better portability touch with significant back pain and her walker use. Hopefully we can get her to pulmonary rehabilitation and improve her respiratory capacity. In 6 months will reassess to see if she still needs the oxygen. We did do an overnight oximetry at nighttime. The patient does not appear to need the oxygen while using her CPAP. The CPAP therapy continues to be affecting beneficial and she does use it for more than 4 hours a night. 10/09/2024 the patient is here for a pulmonary follow-up visit. She continues to be about the same complaining of dyspnea on exertion. Moderate severity. Sometimes it waxes and wanes were sometimes she feels okay and sometimes she does not. The patient does understand that she does have COPD although her PFTs are basically just mild. She is on Trelegy right now. She does not see much improvement but I did recommend she continue for now. She still with significant back pain. She was supposed to try a pain stimulator trial but is still yet to be approved. She is waiting to hear back from the pain clinic. Hopefully once the situated we can have her undergo pulmonary function studies and see about getting pulmonary rehabilitation on board because she is deconditioned. She does continue to use his CPAP every night and the CPAP therapy continues to be affecting beneficial. She does use it for more than 4 hours a night. As far as her pulmonary nodules and history of thymoma she did undergo a CT scan of the chest at [facility]. It appears that the 6 mm nodule stable in the postoperative changes are stable as well without any evidence of any recurrence of the thymoma. I did reassure her. She does have some emphysema. Therefore, she should continue to follow the current respiratory regimen and CPAP therapy. Follow-up with pain management to have better pain control regimen and ultimately when she comes back will perform her PFTs and hopefully start pulmonary rehabilitation. 04/07/2025 the patient is here for a pulmonary follow-up visit. Overall she is doing okay she is recovering from COVID. She did take Paxlovid. She feels fatigued and with muscle aches. She is also complaining of productive cough now moderate severity with yellowish mucus. Will go ahead and treat her for postviral bacterial infection specially since she has had staph aureus in the past. She has responded well to doxycycline. The patient can always call if no better after 48 hours to make sure that she is on proper antibiotic therapy. In the meantime she is using her CPAP. CPAP affecting beneficial she does use it for more than 4 hours a night. Although she complains of a dry mouth. I did increase her temperature from 60 to F to 70 F. If she continues to have dryness she can always call. Humidity set about 5 right now. Right now is manual hopefully we can change to auto so continues to adjust. She did have a CT scan of the chest at [facility] which I personally reviewed. I compared to her previous CAT scan. Appears that she has stable pulmonary nodules measuring 6 mm in size. At this point will follow-up with a CAT scan in 12 months to make sure stability of disease. The patient follow-up in 6 months if she has any issues she can always call for an earlier assessment. [facility] Medical History (Updated 03/10/25 @ 12:59 by Shira Markham CNP) Hx of ovarian cyst Adrenal cyst Dyspnea GERD (gastroesophageal reflux disease) Depression Arthritis Fibromyalgia Pulmonary nodules Thymoma FERCHO on CPAP COPD (chronic obstructive pulmonary disease) Surgical History (Updated 02/17/25 @ 08:05 by Prince Corrigan MD) History of surgery (~12/17/24) History of back surgery Hx of foot surgery History of esophagogastroduodenoscopy (EGD) H/O colonoscopy H/O thymectomy H/O parotidectomy H/O tubal ligation H/O sinus surgery Family History Mother COPD (chronic obstructive pulmonary disease) Father Prostate CA Social History Household Members: Spouse Are you a primary acute care nursing assistant to a significant other at home: No Do you presently have visiting nurse or other home services: Yes (Meals on Wheels) Alcohol intake: never Patient Tobacco Use Status: Former Tobacco user Tobacco use type: Cigarette Cigarette Packs Per Day: 1 Years Smoked: 20 Review of Systems Const Denies chills, Denies fatigue, Denies fever(s), Denies weight gain and Denies weight loss Eyes Denies change in vision and Denies diplopia ENT Denies dizziness Card Denies chest pain, Denies leg edema, Denies lightheadedness, Denies palpitations, Denies dyspnea on exertion, Denies orthopnea and Denies other Resp Denies cough, Denies dyspnea on exertion and Denies wheezing GI Denies hematochezia and Denies change in stool character Musc Denies abnormal gait, Denies muscle weakness, Denies numbness, Denies radiating pain into limb and Denies tingling Skin/Breast Denies rash Neuro Denies abnormal gait, Denies dizziness, Denies numbness and Denies tingling Endo Denies fatigue and Denies palpitations David/Lymph Denies lymphadenopathy Aller/Immun Denies wheezing Physical Exam Vital Signs: Last Vital Signs Pulse 85 04/07/25 13:02 BP 126/64 04/07/25 13:02 Pulse Ox 98 04/07/25 13:02 Oxygen Delivery Method Room Air 04/07/25 13:02 BMI result Body Mass Index 36.2 Const General: comfortable HEENT Head: Yes normocephalic Neck Neck: Yes supple Chest Chest palpation & inspection: normal inspection of the chest Resp Effort & Inspection: normal respiratory effort Auscultation: clear to auscultation bilaterally and no wheezes Cardio Rate: regular rate Rhythm: regular rhythm Heart sounds: S1 normal heart sound present and S2 normal heart sound present GI Palpation (GI): Soft to palpation Skin General skin exam: no rashes or lesions noted Extrem General: Yes no clubbing, cyanosis or edema Assessment & Plan Assessment & Plan (1) COPD (chronic obstructive pulmonary disease): Code(s): J44.9 - Chronic obstructive pulmonary disease, unspecified Category: Medical Qualifiers: COPD type: emphysema Emphysema type: centrilobular Qualified Code(s): J43.2 - Centrilobular emphysema (2) FERCHO on CPAP: Code(s): G47.33 - Obstructive sleep apnea (adult) (pediatric); Z99.89 - Dependence on other enabling machines and devices Category: Medical (3) Thymoma: Comment: w/surgery 11/07/22 @ [facility] Code(s): D49.89 - Neoplasm of unspecified behavior of other specified sites Category: Medical (4) Pulmonary nodules: Code(s): R91.8 - Other nonspecific abnormal finding of lung field Category: Medical (5) Dyspnea: Code(s): R06.00 - Dyspnea, unspecified Category: Medical Qualifiers: Dyspnea type: dyspnea on exertion Qualified Code(s): R06.09 - Other forms of dyspnea Plan Oxygen: 2l/pulse with activity, the patient benefits from aportable oxygen concentrator for better portability outside of the home sanjay KWOK as needed APAP from local DME 8-18 overnight oximetry on CPAP RA was ok CT chest to f/u nodules, ulises 12/2025 PFTs-mild COPD start Doxycycline x 14 weeks pain management F/U 6 months Medications: New doxycycline monohydrate 100 mg PO BID 28 tabs 0RF 14 days guaifenesin ER 600 mg PO BID 28 tabs 0RF 14 days Coding Level of Care Code Est Pt Level 4 (29590) Complex EM visit Add On G2211 Diagnoses Centrilobular emphysema J43.2 COPD type: emphysema Emphysema type: centrilobular FERCHO on CPAP G47.33; Z99.89 Thymoma D49.89 Pulmonary nodules R91.8 Dyspnea on exertion R06.09 Dyspnea type: dyspnea on exertion Time Spent (min) 17
--- OUTSIDE RECORDS SUMMARY | 2025-04-07 15:33 | XMS_ITS | Continuity of Care Document ---
Author Organization [facility] [address] [place] [address] Phone [phone] Care Team Providers Care Pullboat Engineer Name Role Phone Emmanuel Merrill NP Care Team Information Auto Rental Clerk [phone] Problems Active Problems Provider Date Asthma Tee [...] SIG Qnty Indications Order ing Provider Date Ndbjgixlkazia0vd Tablets take 1 tablet by mouth at 11 pm, go for fasting blood work the following morning at 8 am. 1tabs R19.09 Domingo Winters NP 02/13/2025 BD Pen Needle/Short/Ultra-F ine/31G X 8mm31G X 8 mm Misc use 1 pen needle 3 times a day before meals 300units M81.0 Magda Marinelli M.D. 12/12/2023 [id number] Tablets 1 by mouth every day 90tabs Tee Pagan M.D. 01/16/[address] Take 1 Capsule By Mouth Twice A Day Suzanna Aguilar MD Hydroxyzine KCK76la Tablets Take 1 Tablet (25 MG) By Mouth 3 Times A Day as Needed For Itching Purnima Stock P.ASatya Lisinopril2.5mg Tablets Take 1 Tablet By Mouth Twice A Day Purnima Stock PSatyaASatya Trazodone JXM08el Tablets Take 2 Tablets By Mouth Every Day For 90 Days Mega Tijerina MD Yloqmswpr855qo Tablets Take 1 Tablet By Mouth Twice A Day For 30 Days Mega Tijerina MD Guospanvk4gw Tablets Take 1 Tablet By Mouth Every Day AT Bedtime as Needed Purnima Stock P.ASatya Escitalopram Lzevqxx80lc Tablets Take 1 Tablet By Mouth Every Day Purnima Stock P.ASatya Tttculgb42cr Tablets 3 times daily Unkno wn Trelegy Hhmjmfw528-33.5-25mc g/Act Aerosol Inhale 1 puff By Mouth Daily For 30 Days Donell Partida Albuterol Sulfate IHR405(90Base) mcg/Act Aerosol use 2 puffs every 4 to 6 hours as needed Unknown Vital Signs Date Vital Result Comment 02/13/2025 10:00am BP Systolic 114 mmHg BP Diastolic 64 mmHg Height 61 inches 5'1 Weight 189.50 lb BMI (Body Mass Index) 35.8 kg/m2 Results Test Acquired Date Facility Test Result H/L Range Note Dexamethasone, Serum 03/06/2025 [facility] Dexamethasone, Serum 275 ng/dL 1 Glomerular Filtration Rate Estimated 03/06/2025 [facility] Creatinine 0.77 mg/dL 0.57-1.00 eGFR 86 mL/min/1. 73 >59 Cortisol 03/06/2025 [facility] Cortisol 1.1 g/dL Low 6.2-19.4 2 Cortisol, Urinary Free By HPLC 10/03/2024 [facility] Cortisol,F,ug/ L,U 79 ug/L Undefined 3 Cortisol,F,ug/ 24hr,U 40 ug/24hr 6-42 Renin Activity, Plasma 09/30/2024 [facility] Renin Activity, Plasma 2.312 ng/mL/hr 0.167-5.380 [address], Free 09/30/2024 [facility] Normetanephrin e, Pl 108.0 pg/mL 0.0-285.2 Metanephrine, Pl 27.3 pg/mL 0.0-88.0 Aldosterone LCMS, Serum 09/30/2024 [facility] Aldosterone LCMS, Serum 5.8 ng/dL 0.0-30.0 Glomerular Filtration Rate Estimated 09/30/2024 [facility] Creatinine 0.88 mg/dL 0.57-1.00 eGFR 74 mL/min/1. 73 >59 Albumin 09/30/2024 [facility] Albumin 3.9 g/dL 3.9-4.9 Vitamin D, 25-Hydroxy 09/30/2024 [facility] Vitamin D, 25-Hydroxy 31.2 ng/mL 30.0-100.0 5 Calcium 09/30/2024 [facility] Calcium 9.0 mg/dL 8.7-10.3 Thyroxine (T4) Free, Direct 09/30/2024 [facility] Thyroxine (T4) Free, Direct 0.96 ng/dL 0.82-1.77 TSH 09/30/2024 [facility] TSH 1.930 uIU/mL 0.450-4.500 Calcium 01/01/2024 [facility] Calcium 9.6 mg/dL 8.7-10.3 Albumin 01/01/2024 [facility] Albumin 4.2 g/dL 3.9-4.9 Cortisol, Free, 24 HR Urine 02/09/2023 [facility] Cortisol, Quant 20 6 Ur Free Cortisol 37 7 Total Volume 550 Xitaj-Um-Upwuq 02/09/2023 [facility] Creatinine, Urine MG/DL 160.6 mg/dL Creatinine Ur GM/24HR 0.9 GM/24HR (0.72-1.5) Period & Volume 02/09/2023 [facility] Urine Collection Period 24 HRS Volume 550 MLS Cortisol 02/05/2023 [facility] Cortisol 2.6 g/dL 8 TSH With Reflex To FT4 01/16/2023 [facility] TSH With Reflex To FT4 0.50 uIU/mL (0.4-4.2) FT4 By Direct Dialysis 01/16/2023 [facility] FT4 By Direct Dialysis 0.91 9 Free T3 01/16/2023 [facility] Free T3 2.7 pg/mL (2.3-5.0) 25Oh Vitamin D 01/16/2023 [facility] 25Oh Vitamin D 46.9 NG/ML (20-50) Free T4 01/16/2023 [facility] Free T4 0.82 ng/dL (0.70-1.80) 1 This test was develo ped and its performance characteristics determined by [facility]. It has not been cleared or approved by the Food and Drug Administration. Reference Range: Adults baseline: <30 8:00 AM following 1 mg dexamethasone previous evenin - 295 8:00 AM following 8 mg dexamethasone (4 x 2 mg doses) previous day: 1600 - 2850 2 Please Note: The ref erence interval and flagging for this test is for an AM collection. If this is a PM collection please use: Cortisol PM: 2.3-11.9 3 Test(s) 476279-Bzzvx lucia,F,ug/L,U was developed and its performance characteristics determined by [facility]. It has not been cleared or approved by the Food and Drug Administration. 4 Test(s) 483609-Lkxhr Activity, Plasma was developed and its performance characteristics determined by [facility]. It has not been cleared or approved by the Food and Drug Administration. Test(s) 100014-Wrbwkapoysr was developed and its performance characteristics determined by [facility]. It has not been cleared or approved by the Food and Drug Administration. Test(s) 709243-Mnqbvviuixaeajr, Pl; 389406-Sxinmicuhpde, Pl was developed and its performance characteristics determined by [facility]. It has not been cleared or approved by the Food and Drug Administration. 5 Vitamin D deficiency has been defined by the [place] [employer] and an Endocrine Society practice guideline as a level of serum 25-OH vitamin D less than 20 ng/mL (1,2). The Endocrine Society went on to further define vitamin D insufficiency as a level between 21 and 29 ng/mL (2). 1. IOM ([place] [employer]). 2010. Dietary reference intakes for calcium and D. [place]: The National Academies Press. 2. Benita MF, Solitario WOOD, Cole BURTON, et al. Evaluation, treatment, and prevention of vitamin D deficiency: an Endocrine Society clinical practice guideline. JCEM. 2010; 96(7):1911-30. 6 Reference range: 6 t o 42 Unit: ug/24 hr 7 Reference range: Und efined Unit: ug/L (NOTE) This test was developed and its performance characteristics determined by [facility]. It has not been cleared or approved by the Food and Drug Administration. Test performed at [address] [address] 8 Reference Range: 6-10 am: 6.0-18.4 ug/dL 4-8 pm: 2.7-10.5 ug/dL 9 Unit: ng/dL (NOTE) This test was developed and its performance characteristics determined by [facility]. It has not been cleared or approved by the Food and Drug Administration. Reference Range: Pubertal Children and Adults: 0.8 - 1.7 Test performed by [facility], [address] [place] [id number] Medical Devices Description No Information Available Encounters Type Date Location Provider Dx Diagnosis Office Visit 02/13/2025 10:15a Main Office Domingo Winters NP M81.0 Age-related osteoporosis w/o current pathological fracture E04.1 Nontoxic single thyr oid nodule R19.09 Other intra-abdomina l and pelvic swelling, mass and lump Assessments Date Code Description Provider 02/13/2025 M81.0 Osteoporosis Domingo Winters NP 02/13/2025 E04.1 Thyroid nodule Domingo jorgensen, PABLO 02/13/2025 R19.09 Adrenal mass Domingo Winters NP Plan of Treatment Future Appointment(s):* 08/17/2025 1:00 pm - Domingo Winters NP at Main Office 02/13/2025 - Domingo Winters NP* M81.0 Osteoporosis * E04.1 Thyroid nodule * R19.09 Adrenal mass Functional Status Description No Information Available Mental Status Description No Information Available Referrals Description No Information Available
--- OUTSIDE RECORDS SUMMARY | 2025-04-07 15:33 | XMS_ITS | Clinical Summary ---
Author Organization [facility] [address] [facility] Address [address] [place] [address] Phone Care Team Providers Care Commissioning Agent Name Role Phone Unavailable Primary Care Provider Unavailabl e Medications omeprazole (PriLOSEC) [address] capsule Take 1 capsule (40 mg total) by mouth 2 (two) times a day. 180 capsule 1 5 Active omeprazole (PriLOSEC) [address] capsule Take 1 capsule (40 mg total) by mouth 2 (two) times a day. 5 04/01/20 25 Discontinu ed(Reorder ) Encounters Date Type Department Care Team Description 04/01/2025 Telephone Gastroenterology - [address] [place] [address] [id number] Macario Haynes MD from Last 3 Months Social History Tobacco Use Types Packs/Day Years Used Date Smoking Tobacco: Never Assessed Comments Unknown Sex and Gender Information Value Date Recorded Sex Assigned at Not on file Legal Sex Female 10:58 AM EST Gender Identity Not on file Sexual Orientation Not on file Plan of Treatment Upcoming Encounters Date Type Department Care Team (Late st Contact Info) Description 09/30/2025 2:20 PM EDT Office Visit Gastroenterology - [place] [address] [facility] [address] [facility] [address] [place] [id number] Ruma Cardenas NP 175 [facility] [address] [place] [address] Health Maintenance Due Date Last Done Comments Breast Cancer Screening 1960 Colorectal Cancer Screening: Colonoscopy 1960 DTaP,Tdap,and Td Vaccines (1 - Tdap) 10/18/1979 Cervical Cancer Screening: P ap Smear 1981 Pneumococcal Vaccine: 50+ Ye ars (1 of 1 - PCV) 2010 Zoster Vaccines (1 of 2) 2010 Depression Screening 06/25/2024 COVID-19 Vaccine (1 - 2023-2 5 season) 2025 Influenza Vaccine (#1) 2025 HIV Screening 04/01/2025 Hepatitis C Screening 04/01/2025 Medicare Annual Wellness Visit 04/01/2025 Social Influencers of Health Screening 04/01/2025 RSV Immunization Adult Patie nts (1 - 1-dose 75+ series) 10/18/2035 HIB Vaccines Aged Out No longer eligi ble based on patient's age to complete this topic HPV Vaccines Aged Out No longer eligi ble based on patient's age to complete this topic Hepatitis A Vaccines Aged Out No long er eligible based on patient's age to complete this topic Hepatitis B Vaccines Aged Out No long er eligible based on patient's age to complete this topic IPV Vaccines Aged Out No longer eligi ble based on patient's age to complete this topic MMR Vaccines Aged Out No longer eligi ble based on patient's age to complete this topic Meningococcal ACWY Vaccine Aged Out N o longer eligible based on patient's age to complete this topic Meningococcal B Vaccine Aged Out No l onger eligible based on patient's age to complete this topic RSV Immunization Patients Un joseph 20 months Aged Out No longer eligible b ased on patient's age to complete this topic Varicella Vaccines Aged Out No longer eligible based on patient's age to complete this topic [place]
== END 2025-04-07 13:25 | disposition home or self-care (01) ==
LOC: HO.HPS 12:53
PROVIDERS: PCP Nurse Practitioner; Visit Provider Hospitalist
DX: J43.2 Centrilobular emphysema (principal); G47.33 Obstructive sleep apnea (adult) (pediatric); Z99.89 Dependence on other enabling machines and devices; D49.89 Neoplasm of unspecified behavior of other specified sites; R91.8 Other nonspecific abnormal finding of lung field; R06.09 Other forms of dyspnea
CPT/HCPCS: 99214; G2211

== ENCOUNTER → 2025-04-07 12:52 | Outpatient (BNVA) | payer MEDICARE, MEDICAID, SELFPAY | PROVIDERS: PCP Nurse Practitioner; Visit Provider Hospitalist | DX: R06.09 Other forms of dyspnea (principal); J43.2 Centrilobular emphysema; G47.33 Obstructive sleep apnea (adult) (pediatric); Z99.89 Dependence on other enabling machines and devices; D49.89 Neoplasm of unspecified behavior of other specified sites; R91.8 Other nonspecific abnormal finding of lung field; Z87.891 Personal history of nicotine dependence | CPT/HCPCS: 99212 ==